=== PATIENT | male | born 1940 | race Caucasian/White ===

== ENCOUNTER 2024-04-15 20:40 | Inpatient (IN) ==
--- NOTE | 2024-04-15 21:19 | Emergency Department Note ---
Impression & Plan Acute hypotension, JM (acute kidney injury), Hematuria, Elevated troponin I level, Acute UTI (urinary tract infection) ED Provider Note NAME: ERNIE EGAN AGE: 84 SEX: M : 1940 ARRIVES VIA: Ambulance INFORMANT: Patient, EMS, the patient's significant other ED PROVIDER(S): Lance Hansen DO CHIEF COMPLAINT: Weakness HPI: The patient is an 84-year-old male who presented to the emergency department for an evaluation of generalized weakness. The patient had a history of urethral stricture and kidney stones. The patient had a stent placed as well as a dilation of urethral stricture. The patient was not doing well and was experiencing generalized weakness. He did not have a fever but is feeling there was concern that he was not at his normal baseline mental status. For this reason she called 911. The patient was found to be hypotensive. He was treated with a small fluid bolus prior to arrival. The patient himself offers no complaints. He denies having any nausea or vomiting. He denies having any back pain or chest pain. ROS: See above HPI for pertinent positives & negatives. A total of 10 systems reviewed and were otherwise negative. PAST MEDICAL HISTORY: See Below PAST SURGICAL HISTORY: See Below FAMILY HISTORY: See Below SOCIAL HISTORY: See Below HOME MEDICATIONS: See Below ALLERGIES: See Below VITALS: See Below PHYSICAL EXAMINATION: GENERAL: The patient is awake and alert. He appears somewhat listless. EYES: The conjunctivae are clear. The pupils are round and reactive. EARS, NOSE, MOUTH AND THROAT: The nose is without any evidence of any deformity. NECK: The neck is nontender and supple. RESPIRATORY: Normal respiratory effort is noted there is no evidence of wheezing rhonchi or rales CARDIOVASCULAR: Regular rate and rhythm was noted to auscultation. Systolic murmur was noted. GASTROINTESTINAL: Abdomen is distended. There is diffuse tenderness with suprapubic tenderness to palpation. MUSCULOSKELETAL/EXTREMITIES: There is no evidence of gross deformity full range of motion is noted in the hips and shoulders. SKIN: Trace pedal edema was noted bilaterally. NEUROLOGIC: Patient is awake and oriented to person and place. Strength is symmetric but diminished. MEDICAL DECISION MAKING: The is an 84-year-old male who presented to the emergency department with hypotension and generalized weakness. The patient recently had a procedure for a urethral stricture as well as a stent placement. The patient had a recent urologic procedure today. His significant other called 911 because he had decreased urine output and was very lethargic. The patient was treated with a Ponce catheter in the emergency department. He also had multiple boluses of IV fluids. He was also treated with IV antibiotics for presumed urinary tract infection. The patient had a CT ordered which showed no acute process but did show that the stent was in place. The patient's creatinine was found to be elevated compared to baseline. I discussed his condition with the patient's primary urologist. I also discussed his condition with the [facility] hospitalist. They have agreed to evaluate the patient in the emergency department. I discussed the patient's laboratory and radiographic studies with the patient's significant other. Triage Nursing notes reviewed. Prior medical records reviewed Vital Signs: reviewed and remarkable for hypotension Differential diagnosis: Testicular torsion, mass, infection, hernia, hydrocele, epididymitis, STI, trauma, intra-abdominal process, as well as other pathologies. ER treatment provided: See below Diagnostics interpreted by me: ECG: EKG was obtained in the emergency department. My interpretation is normal sinus rhythm at 91 bpm. Anterior Q waves were noted. Right bundle branch block pattern was noted. There is no ectopy. This was compared to a tracing from June 04, 2023. No specific changes were noted. Cardiac Monitoring: An order was placed for continuous cardiac monitoring. The monitor shows a rate of 95 bpm with sinus rhythm. Laboratory studies: As stated above and show below. Imaging studies: See below. Radiographic imaging was reviewed by myself Consultation(s): I did this case with Dr. Abdullahi who is the patient's primary urologist. I discussed this case with Dr. Jiang who is on-call for the [facility]ist group. ED COURSE: Procedures: none Critical Care: I have personally spent greater than 45 minutes of critical care time in the direct management of this patient. This includes bedside care, interpretation of diagnostic studies, and testing, discussion with consultants, patient, and family members, and other required patient management activities. This 45 minutes is in excess of all separately billable procedures. Past Med/Surg History Problem List (Updated 04/15/24 @ 22:41 by Lance Hansen DO) Acute UTI (urinary tract infection) (Acute) Elevated troponin I level (Acute) Hematuria (Acute) JM (acute kidney injury) (Acute) Acute hypotension (Acute) Encounter for preoperative assessment (Acute) Arthritis of right hip Nightmares Hallucinations Greater trochanteric pain syndrome Nephrolithiasis (Acute) Inflammatory polyarthritis CKD (chronic kidney disease) stage 3, GFR 30-59 ml/min Parkinson's disease Balanitis Dysphagia Incontinence Dementia in Parkinson's disease Constipation Urinary retention Incomplete bladder emptying Leg muscle spasm 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 follow with [facility] Anemia Medical History Arthritis Kidney stone Hallucination mild>seeing bugs (reason for nuplazid) Restless legs Pacemaker (2019) Dr. Foster cards>gets checked monthly remote (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 dx>pacemaker implanted for irregular hr GERD without esophagitis Insomnia Parkinson disease followed by Dr. Kemp Surgical History H/O repair of left rotator cuff History of prostate surgery History of cataract surgery rt/left History of cardiac cath "long time ago/no stents" History of lumbar surgery bone spur removal Status post evacuation of subdural hematoma 08/2018 @ [facility] [place] from fall History of hand surgery left hand--fingers ricardo d/t Parkinson's History of carpal tunnel release of both wrists History of total left hip replacement Hx of vasectomy History of bowel resection 2014--12 inches d/t diverticulitis @ [facility] [place] History of inguinal hernia repair History of colonoscopy with polypectomy History of esophagogastroduodenoscopy (EGD) History of tooth extraction Hx of fusion of cervical spine VERY limited ROM>more than 3 levels fused (11+ years ago) Family History Mother Myocardial infarction Colorectal cancer Other Heart problem No family history of adverse response to anesthesia Denies family history of Ovarian cancer Prostate cancer Breast cancer Lung cancer Social History Smoking Status: Former smoker Tobacco Type: Cigarettes Age Started Using Tobacco: 21; Age Quit Using Tobacco: 25; packs per day: 1; Cigarettes Per Day: 50+ YR AGO; Second Hand Exposure: No; Do You Dip or Chew Tobacco: No; Hx Alcohol Use: Yes Hx Substance Use: No Preferred Language: Pashto Communication Ability: Effective Visual Impairment: Limited Hearing Ability: Normal Commercial Lender Required: No Beliefs That Will Affect Care: None marital status: Current Living Situation: Spouse current occupational status: retired How many Children do You have: 5 Feels Safe at Home: Yes Childhood Exposure to Second-Hand Smoke: Yes Diet: regular caffeine: Yes Dental Care, Regularly: Yes Physical Activity Frequency: 3-4 Times per Week Physical Activity Frequency Comment: chair exercises Seatbelt Use: always Sunscreen Use: No (not in the sun) Do you think of yourself as: straight/heterosexual Assistive Devices: Denture - Upper, Glasses and Wheelchair Allergies Allergies Allergy/AdvReac Type Severity Reaction Status Date / Time Sulfa (Sulfonamide Allergy Mild itchy Verified 04/15/24 06:53 Antibiotics) alfuzosin [From Uroxatral] Allergy Unknown PT NOT SURE Verified 04/15/24 06:53 clindamycin Allergy Unknown PT NOT SURE Verified 04/15/24 06:53 aspirin AdvReac Mild upset Verified 04/15/24 06:53 stomach ciprofloxacin AdvReac Mild Joint Pain Verified 04/15/24 06:53 levofloxacin [From Levaquin] AdvReac Mild affected Verified 04/15/24 06:53 tendons in wrist Quinolones AdvReac Mild myalgia Verified 04/15/24 06:53 Home Meds Home Medications Medication Instructions Recorded Confirmed diclofenac sodium 1 % topical gel 2 g topical UD PRN Knee Pain 08/17/18 04/15/24 (Voltaren) finasteride 5 mg tablet 5 mg PO QAM 07/05/19 04/15/24 prednisone 5 mg tablet 5 mg PO QAM 08/22/19 04/15/24 cholecalciferol (vitamin D3) 25 1,000 units PO TID 09/19/19 04/15/24 mcg (1,000 unit) capsule (Vitamin D3) acetaminophen 500 mg tablet 1,000 mg PO UD PRN Pain 01/09/20 04/15/24 ascorbic acid (vitamin C) 500 mg 500 mg PO QAM 01/09/20 04/15/24 tablet celecoxib 200 mg capsule (Celebrex) 200 mg PO QAM 07/09/21 04/15/24 peg 400-propylene glycol 0.4 %-0.3 1 drp ophthalmic (eye) BID 07/09/21 04/15/24 % eye drops ferrous gluconate 324 mg (36 mg 324 mg PO QDL 12/27/21 04/15/24 iron) tablet sennosides 8.6 mg-docusate sodium 2 - 4 tab-cap PO DAILY PRN 12/27/21 04/15/24 50 mg tablet (Colace 2-In-1) constipation clotrimazole-betamethasone 1 1 applic topical .qhs PRN Pain 08/24/23 04/15/24 %-0.05 % topical cream famotidine 20 mg tablet 20 mg PO QAM 04/08/24 04/15/24 pimavanserin 10 mg tablet 10 mg PO QAM 04/08/24 04/15/24 (Nuplazid) vibegron 75 mg tablet (Gemtesa) 75 mg PO QPM 04/08/24 04/15/24 Previous Rx's Medication Instructions Recorded methenamine hippurate 1 gram tablet 1 gm PO HS #30 tabs 09/17/19 sodium chloride 1 gram tablet 1 g PO TID 90 days #270 tabs 10/23/20 Wheelchair (Powered) (Power #1 ea 08/16/22 Wheelchair) gabapentin 100 mg capsule 100 mg PO HS #30 caps 09/08/23 tramadol 50 mg tablet 50 mg PO Q6H PRN pain #30 tabs 11/15/23 pantoprazole 40 mg tablet,delayed 40 mg PO BID #180 tabs 12/18/23 release (Protonix) midodrine 10 mg tablet 5 mg (1/2 x 10 mg) PO TID 90 days 12/27/23 #135 tabs carbidopa 25 mg-levodopa 250 mg 1 tab PO QID #90 tabs 03/08/24 tablet carbidopa ER 50 mg-levodopa 200 mg 1 tab PO BID 14 days #28 tabs 03/18/24 tablet,extended release nitrofurantoin 100 mg PO Q12H 7 days #14 caps 04/05/24 monohydrate/macrocrystals 100 mg capsule (Macrobid) amoxicillin 500 mg-potassium 1 tab PO BID #14 tabs 04/15/24 clavulanate 125 mg tablet clotrimazole-betamethasone 1 1 applic topical TID PRN Swelling 04/15/24 %-0.05 % topical cream #45 grams ondansetron 8 mg disintegrating 8 mg PO Q8H PRN nausea and 04/15/24 tablet vomiting #30 tabs oxycodone-acetaminophen 7.5 mg-325 1 tab PO Q8H PRN pain #7 tabs 04/15/24 mg tablet (Percocet) phenazopyridine 200 mg tablet 200 mg PO Q8H PRN pain #10 tabs 04/15/24 (Pyridium) tamsulosin 0.4 mg capsule 0.4 mg PO DAILY #30 caps 04/15/24 Results & Data (ED) Vital Signs Vital Signs - 24 hr 04/15/24 20:48 04/15/24 21:02 04/15/24 22:34 Temperature 36.7 C Temperature Source Oral Pulse Rate 91 H 92 H Pulse Rate [Finger] 95 H Respiratory Rate 14 18 Blood Pressure 104/71 Blood Pressure [Right Arm] 98/72 L Blood Pressure Mean 82 Blood Pressure Mean [Right Arm] 80 Pulse Oximetry 94 94 Oxygen Delivery Method Room Air Room Air Sepsis Recent Fever Within 48 Hours No Sepsis New/Unexplained Change in Mental Status No Sepsis Action Taken by Nursing No Action Required Home Medications Current Medication List: was personally reviewed by me Laboratory Data Attestation: I reviewed the patient's lab results. 04/15/24 20:42 04/15/24 20:42 Lab Results 04/15/24 04/15/24 04/15/24 Range/Units 20:42 20:50 21:39 WBC 7.65 (4.8-10.8) K/ul RBC 4.39 L (4.70-6.10) M/uL Hgb 15.0 (14.0-18.0) g/dl Hct 43.7 (42.0-52.0) % MCV 99.5 (80.0-100.0) fL MCH 34.2 H (25.0-34.0) pg MCHC 34.3 (32.0-36.0) g/dL RDW Std Deviation 48.8 H (36.4-46.3) fL RDW Coeff of Capo 13.3 (11.5-14.5) % Plt Count 130 (130-400) K/uL MPV 10.5 (9.4-12.4) fL Immature Gran % (Auto) 0.7 % Neut % (Auto) 87.6 % Lymph % (Auto) 1.7 % [place] % (Auto) 8.1 % Eos % (Auto) 1.8 % Baso % (Auto) 0.1 % Neut # (Auto) 6.70 H (1.40-6.50) K/uL Lymph # (Auto) 0.13 L (1.20-3.40) K/uL [place] # (Auto) 0.62 H (0.11-0.59) K/uL Eos # (Auto) 0.14 (0.00-0.50) K/uL Baso # (Auto) 0.01 (0.00-0.20) K/uL Immature Gran # (Auto) 0.05 (0.01-0.20) K/uL PT 11.7 (9.0-12.0) Seconds INR 1.1 (0.9-1.1) APTT 27 (21-31) Seconds PTT Ratio 1.0 Sodium 137 (136-145) mmol/L Potassium 4.9 (3.5-5.1) mmol/L Chloride 107 (98-107) mmol/L Carbon Dioxide 19 L (21-32) mmol/L Anion Gap 11 (3-11) BUN 49 H (6-23) mg/dl Creatinine 2.54 H (0.6-1.4) mg/dl Est Cr Clr Drug Dosing 23.8 ml/min Est GFR ( Amer) 26.2 ml/min Est GFR (Non-Af Amer) 22.6 ml/min BUN/Creatinine Ratio 19.3 (10-20) Glucose 127 H (70-99(Fasting)) mg/dl Lactate 2.9 H* (0.4-2.0) mmol/L Calcium 8.6 (8.6-10.3) mg/dl Magnesium 1.4 L (1.7-2.4) mg/dl Total Bilirubin 0.8 (0.2-1.0) mg/dl Direct Bilirubin 0.2 (0-0.2) mg/dl AST 9 L (13-39) U/L ALT 5 L (7-52) U/L Alkaline Phosphatase 46 (34-104) U/L Troponin I High Sens 43.4 H (0-20) pg/ml Total Protein 6.9 (6.0-8.3) gm/dl Albumin 4.3 (3.4-5.0) gm/dl Procalcitonin 3.74 H (0-0.5) ng/ml Urine Color Dark Yellow Urine Appearance Turbid A (Clear) Urine pH 6.0 (4.5-7.5) Ur Specific [place] 1.020 (1.000-1.030) Urine Protein 3+ H (Negative) Urine Glucose (UA) Negative (Negative) Urine Ketones Negative (Negative) Urine Blood 3+ H (Negative) Urine Nitrite Positive A (Negative) Urine Bilirubin 1+ H (Negative) Urine Urobilinogen Negative (Negative) Ur Leukocyte Esterase 2+ H (Negative) Urine WBC (Auto) 21-50 H (0-5) /hpf Urine RBC (Auto) >20 H (0-2) /hpf U Hyaline Cast (Auto) 3-5 H (0-2) /lpf U Epithel Cells (Auto) 0-2 (0-2) /hpf Urine Bacteria (Auto) 1+ H (None Seen) Administered Medications Discontinued Medications Sodium Chloride (Nss) 1,000 mls @ 999 mls/hr IV .Q1H1M ONE Stop: 04/15/24 21:48 Last Admin: 04/15/24 21:53 Dose: 999 mls/hr Documented By: SHARAN Ceftriaxone Sodium (Rocephin) 2,000 mg in 50 mls @ 100 mls/hr IV NOW STA Stop: 04/15/24 22:23 Last Admin: 04/15/24 22:06 Dose: 100 mls/hr Documented By: SHARAN Imaging Data Attestation: I personally reviewed and interpreted this imaging study as follows: My Impression: 1 view chest x-ray was obtained in the emergency department. There was atelectasis noted at both bases, there is no free air, final report pending. CT of the abdomen and pelvis was obtained. My interpretation is no free air or signs of bowel obstruction, final report below. Radiologist's Impression: Abdomen/Pelvis CT 04/15/24 20:48 Exam(s): CT ABDOMEN + PELVIS Without Contrast EXAM: CT Abdomen and Pelvis Without Intravenous Contrast CLINICAL HISTORY: recent stent. TECHNIQUE: Axial computed tomography images of the abdomen and pelvis without intravenous contrast. CTDI is 25.66 mGy and DLP is 1200.83 mGy-cm. Automated exposure control was utilized for the study. A dose lowering technique was utilized adhering to the principles of ALARA. COMPARISON: No relevant prior studies available. FINDINGS: Lung bases: Unremarkable. No mass. No consolidation. ABDOMEN: Liver: Unremarkable. Gallbladder and bile ducts: Layering hyperdense material suggested involving the posterior aspect of the gallbladder. No calcified gallstones. No definite CT evidence for gallbladder wall thickening or biliary dilatation. Pancreas: Unremarkable. No ductal dilation. Spleen: Unremarkable. No splenomegaly. Adrenals: Unremarkable. No mass. Kidneys and ureters: A right sided double-J ureteral stent is noted in position with the superior loop noted in the renal pelvis and the inferior loop noted within the bladder. No right sided hydronephrosis noted. Stomach and bowel: The stomach is moderately distended with fluid and gas. No definite gastric mucosal thickening. Diffuse fluid-filled loops of nondilated small bowel are noted. Moderate stool burden. Evaluation of the bowel mucosa is somewhat limited without contrast and respiratory artifact. PELVIS: Appendix: No findings to suggest acute appendicitis. Bladder: A Ponce catheter is noted in the predominantly decompressed bladder. No stones. Reproductive: Unremarkable as visualized. ABDOMEN and PELVIS: Intraperitoneal space: Unremarkable. No free air. No significant fluid collection. Bones/joints: Mild scoliosis of the thoracolumbar spine. No acute osseous abnormality. Left total hip arthroplasty. No dislocation. Soft tissues: Left inguinal hernia with intraperitoneal fat extending into the superior aspect of the partially excluded scrotum. No fluid or fat stranding identified. Vasculature: Unremarkable. No abdominal aortic aneurysm. Lymph nodes: Unremarkable. No enlarged lymph nodes. IMPRESSION: 1. A right sided double-J ureteral stent is noted in position with the superior loop noted in the renal pelvis and the inferior loop noted within the bladder. No right sided hydronephrosis noted. 2. Filled loops of small bowel is presumed normal variation. Mild enteritis is also a consideration. No evidence for bowel obstruction. 3. Left inguinal hernia with intraperitoneal fat extending into the superior aspect of the partially excluded scrotum. No fluid or fat stranding identified. Electronically signed by: Leonard Perdue MD 04/15/24 22:32 PM Discharge Plan Visit Data Chief Complaint: Lethargic Stated Complaint: LETHARGIC, HYPOTENSIVE, UNABLE TO URINATE ED Provider: Lance Hansen Discharge Problem: Acute hypotension, JM (acute kidney injury), Hematuria, Elevated troponin I level, Acute UTI (urinary tract infection) Patient Disposition: Being Evaluated by Hospitalist Forms Stand Alone Forms: My [facility] Prescriptions Prescriptions: No Action methenamine hippurate 1 gram tablet 1 gm PO HS Qty: 30 3RF gabapentin 100 mg capsule 100 mg PO HS Qty: 30 8RF tramadol 50 mg tablet 50 mg PO Q6H PRN (Reason: pain) Qty: 30 1RF pantoprazole [Protonix] 40 mg tablet,delayed release (DR/EC) 40 mg PO BID Qty: 180 3RF carbidopa-levodopa 25-250 mg tablet 1 tab PO QID Qty: 90 5RF carbidopa-levodopa 50-200 mg tablet extended release 1 tab PO BID 14 Days Qty: 28 0RF nitrofurantoin monohyd/m-cryst [Macrobid] 100 mg capsule 100 mg PO Q12H 7 Days Qty: 14 0RF Patient Comments: new rx Rx Instructions: must administer with a meal/food ondansetron 8 mg tablet,disintegrating 8 mg PO Q8H PRN (Reason: nausea and vomiting) Qty: 30 0RF tamsulosin 0.4 mg capsule 0.4 mg PO DAILY Qty: 30 0RF finasteride 5 mg tablet 5 mg PO QAM clotrimazole-betamethasone 1-0.05 % cream 1 applic topical .qhs PRN (Reason: Pain) Rx Instructions: Apply small/pea-sized amount topically before bed prednisone 5 mg tablet 5 mg PO QAM sodium chloride 1 gram tablet 1 g PO TID 90 Days Qty: 270 0RF sennosides-docusate sodium [Colace 2-In-1] 8.6-50 mg tablet 2 - 4 tab-cap PO DAILY PRN (Reason: constipation) celecoxib [Celebrex] 200 mg capsule 200 mg PO QAM peg 400-propylene glycol 0.4-0.3 % drops 1 drp ophthalmic (eye) BID ferrous gluconate 324 mg (36 mg iron) tablet 324 mg PO QDL (DME) Power Wheelchair Device See Rx Instructions .Route Qty: 1 0RF Rx Instructions: As directed midodrine 10 mg tablet 5 mg PO TID 90 Days Qty: 135 3RF Rx Instructions: do not give last dose of day after 6PM or within 4 hrs of bedtime diclofenac sodium [Voltaren] 1 % Gel 2 g TOPICAL UD PRN (Reason: Knee Pain) cholecalciferol (vitamin D3) [Vitamin D3] 25 mcg (1,000 unit) capsule 1,000 units PO TID acetaminophen 500 mg Tablet 1,000 mg PO UD PRN (Reason: Pain) ascorbic acid (vitamin C) 500 mg Tablet 500 mg PO QAM famotidine 20 mg tablet 20 mg PO QAM Nuplazid 10 mg tablet 10 mg PO QAM Gemtesa 75 mg tablet 75 mg PO QPM phenazopyridine [Pyridium] 200 mg tablet 200 mg PO Q8H PRN (Reason: pain) Qty: 10 0RF oxycodone-acetaminophen [Percocet] 7.5-325 mg tablet 1 tab PO Q8H PRN (Reason: pain) Qty: 7 0RF amoxicillin-pot clavulanate 500-125 mg tablet 1 tab PO BID Qty: 14 0RF clotrimazole-betamethasone 1-0.05 % cream 1 applic topical TID PRN (Reason: Swelling) Qty: 45 11RF Rx Instructions: Apply 2-3 x per day for swelling or irritation. Referrals Referrals: Mehrdad Avalos DO [Primary Care Provider] - Discharge Problem: Hematuria Qualifiers: Hematuria type: gross Qualified Code(s): R31.0 - Gross hematuria
[2024-04-15 21:28] LABS: Albumin Level 4.3 gm/dl (3.4-5.0); BUN Creatinine Ratio 19.3 (10-20); Bilirubin Direct 0.2 mg/dl (0-0.2); Bilirubin,Total 0.8 mg/dl (0.2-1.0); Calcium 8.6 mg/dl (8.6-10.3); Creatinine Clr Calc Pharmacy 23.8 ml/min; Est GFR (African American) 26.2 ml/min; Est GFR (Non-African American) 22.6 ml/min; Magnesium 1.4 mg/dl (1.7-2.4); Potassium 4.9 mmol/L (3.5-5.1); Total Protein 6.9 gm/dl (6.0-8.3)
[2024-04-15 21:33] LABS: Basophils # (auto) 0.01 K/uL (0.00-0.20); Basophils % (auto) 0.1 %; Eosinophils # (auto) 0.14 K/uL (0.00-0.50); Eosinophils % (auto) 1.8 %; Hematocrit (blood only) 43.7 % (42.0-52.0); Immature Granulocytes # (auto) 0.05 K/uL (0.01-0.20); Immature Granulocytes % (auto) 0.7 %; Lymphocytes # (auto) 0.13 K/uL (1.20-3.40); Lymphocytes % (auto) 1.7 %; Mean Corpuscular Hemoglobin 34.2 pg (25.0-34.0); Mean Corpuscular Hgb Conc 34.3 g/dL (32.0-36.0); Mean Corpuscular Volume 99.5 fL (80.0-100.0); Mean Platelet Volume 10.5 fL (9.4-12.4); Monocytes # (auto) 0.62 K/uL (0.11-0.59); Monocytes % (auto) 8.1 %; Neutrophils % (auto) 87.6 %; Platelet Count 130 K/uL (130-400); RDW Coefficient of Variation 13.3 % (11.5-14.5); RDW Standard Deviation 48.8 fL (36.4-46.3); Red Blood Count 4.39 M/uL (4.70-6.10); White Blood Count 7.65 K/ul (4.8-10.8)
[2024-04-15 21:34] LABS: Troponin I High Sensitivity 43.4 pg/ml (0-20)
[2024-04-15 21:39] LABS: INR 1.1 (0.9-1.1); Partial Thromboplastin Time 27 Seconds (21-31); Prothrombin Time 11.7 Seconds (9.0-12.0)
[2024-04-15] MEDS: SODIUM CHLORIDE 0.9% 1,000 ML IV ONE (21:53)
[2024-04-15] MEDS: cefTRIAXone SODIUM 2,000 MG/50 ML BAG IV STA (22:06)
[2024-04-15 22:13] LABS: Appearance Urine Turbid (Clear); Bilirubin Urine 1+ (Negative); Blood Urine 3+ (Negative); Color Urine Dark Yellow; Epithelial Cell Urine Auto 0-2 /hpf (0-2); Glucose Urine UA Negative (Negative); Ketones Urine Negative (Negative); Leukocyte Esterase Urine 2+ (Negative); Nitrite Urine Positive (Negative); Protein Urine 3+ (Negative); RBC Urine Automated >20 /hpf (0-2); Urobilinogen Urine Negative (Negative); WBC Urine Automated 21-50 /hpf (0-5)
[2024-04-15 22:22] LABS: Bacteria Urine Automated 1+ (None Seen)
--- NOTE | 2024-04-15 22:33 | CT Scan Report ---
Exam(s): CT ABDOMEN + PELVIS Without Contrast EXAM: CT Abdomen and Pelvis Without Intravenous Contrast CLINICAL HISTORY: recent stent. TECHNIQUE: Axial computed tomography images of the abdomen and pelvis without intravenous contrast. CTDI is 25.66 mGy and DLP is 1200.83 mGy-cm. Automated exposure control was utilized for the study. A dose lowering technique was utilized adhering to the principles of ALARA. COMPARISON: No relevant prior studies available. FINDINGS: Lung bases: Unremarkable. No mass. No consolidation. ABDOMEN: Liver: Unremarkable. Gallbladder and bile ducts: Layering hyperdense material suggested involving the posterior aspect of the gallbladder. No calcified gallstones. No definite CT evidence for gallbladder wall thickening or biliary dilatation. Pancreas: Unremarkable. No ductal dilation. Spleen: Unremarkable. No splenomegaly. Adrenals: Unremarkable. No mass. Kidneys and ureters: A right sided double-J ureteral stent is noted in position with the superior loop noted in the renal pelvis and the inferior loop noted within the bladder. No right sided hydronephrosis noted. Stomach and bowel: The stomach is moderately distended with fluid and gas. No definite gastric mucosal thickening. Diffuse fluid-filled loops of nondilated small bowel are noted. Moderate stool burden. Evaluation of the bowel mucosa is somewhat limited without contrast and respiratory artifact. PELVIS: Appendix: No findings to suggest acute appendicitis. Bladder: A Ponce catheter is noted in the predominantly decompressed bladder. No stones. Reproductive: Unremarkable as visualized. ABDOMEN and PELVIS: Intraperitoneal space: Unremarkable. No free air. No significant fluid collection. Bones/joints: Mild scoliosis of the thoracolumbar spine. No acute osseous abnormality. Left total hip arthroplasty. No dislocation. Soft tissues: Left inguinal hernia with intraperitoneal fat extending into the superior aspect of the partially excluded scrotum. No fluid or fat stranding identified. Vasculature: Unremarkable. No abdominal aortic aneurysm. Lymph nodes: Unremarkable. No enlarged lymph nodes. IMPRESSION: 1. A right sided double-J ureteral stent is noted in position with the superior loop noted in the renal pelvis and the inferior loop noted within the bladder. No right sided hydronephrosis noted. 2. Filled loops of small bowel is presumed normal variation. Mild enteritis is also a consideration. No evidence for bowel obstruction. 3. Left inguinal hernia with intraperitoneal fat extending into the superior aspect of the partially excluded scrotum. No fluid or fat stranding identified. Electronically signed by: Leonard Perdue MD 04/15/24 22:32 PM
--- NOTE | 2024-04-15 22:49 | History & Physical Report ---
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: (11) Dementia in Parkinson's disease: (12) Pacemaker: (13) Inflammatory polyarthritis: Plan Sepsis with hypotension/UTI/acute urinary retention/placement of Ponce catheter in ED/gross hematuria/status post right ureteral stent placement on 04-15-2020 4 AM- Follow urine culture and sensitivity Stop nitrofurantoin Ceftriaxone 2 g IV daily Lowest blood pressure recorded 74/62 Patient received a total of 3 L normal saline bolus in ED, with improvement in systolic blood pressure to mid 90s Maintenance fluids: NSS at 100 mL/h x 1 L Continue tamsulosin, and Gemtesa Continue midodrine Patient will likely need additional fluid boluses. With possible need for pressors and transfer to ICU later on if necessary Consult urology Acute kidney injury superimposed on CKD/hypomagnesemia- Creatinine 2.54, with base range 1.34-1.4 8 repeat laboratories in a.m. Give magnesium sulfate 2 g IV, and recheck laboratories in a.m. Inflammatory polyarthritis- Hold oral prednisone Give hydrocortisone 100 mg IV now, then 50 mg IV every 8 hours Parkinson's disease- Continue extended release and regular release carbidopa-levodopa Continue Nuplazid History of Present Illness Chief Complaint: The patient presents to the emergency department with complaint of decreased ability to urinate after right-sided ureteral stent placement earlier in the day on 04/15, and presents to the emergency department, as recommended by urology, if he was unable to urinate by early this evening. Primary Care Provider: Mehrdad Avalos DO The patient is a 84-year-old male with past medical history including greater trochanteric pain syndrome, inflammatory polyarthritis, CKD stage III, Parkinson's disease with dementia, balanitis, history of urinary retention and incomplete bladder emptying, 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 On 04/15/2024 at 8:05 AM, he underwent a cystoscopy with urethral dilation, right flexible ureteroscopy, retrograde pyelogram, laser lithotripsy, ureteral dilation, basket extraction of stone and insertion of right ureteral stent catheter. He arrived to the urology office at 16:55 this afternoon, and reported not being able to void since the procedure earlier in the morning, and felt nauseous, having vomited twice while in the office. His PVR was 222. He was given prescriptions for Flomax and Zofran, told to drink lots of liquids, and if unable to urinate by 8 PM, he was to go to the ER for evaluation. In the emergency department, patient had a Ponce catheter placed, which returned gross hematuria, and was referred for evaluation for admission to the hospitalist service. Allergies Allergy/AdvReac Type Severity Reaction Status Date / Time Sulfa (Sulfonamide Allergy Mild itchy Verified 04/15/24 06:53 Antibiotics) alfuzosin [From Uroxatral] Allergy Unknown PT NOT SURE Verified 04/15/24 06:53 clindamycin Allergy Unknown PT NOT SURE Verified 04/15/24 06:53 aspirin AdvReac Mild upset Verified 04/15/24 06:53 stomach ciprofloxacin AdvReac Mild Joint Pain Verified 04/15/24 06:53 levofloxacin [From Levaquin] AdvReac Mild affected Verified 04/15/24 06:53 tendons in wrist Quinolones AdvReac Mild myalgia Verified 04/15/24 06:53 Home Medications Medication Instructions Recorded Confirmed Type diclofenac sodium 1 % topical gel 2 g topical UD PRN Knee Pain 08/17/18 04/15/24 History (Voltaren) finasteride 5 mg tablet 5 mg PO QAM 07/05/19 04/15/24 History prednisone 5 mg tablet 5 mg PO QAM 08/22/19 04/15/24 History methenamine hippurate 1 gram tablet 1 gm PO HS #30 tabs 09/17/19 04/15/24 Rx cholecalciferol (vitamin D3) 25 1,000 units PO TID 09/19/19 04/15/24 History mcg (1,000 unit) capsule (Vitamin D3) acetaminophen 500 mg tablet 1,000 mg PO UD PRN Pain 01/09/20 04/15/24 History ascorbic acid (vitamin C) 500 mg 500 mg PO QAM 01/09/20 04/15/24 History tablet sodium chloride 1 gram tablet 1 g PO TID 90 days #270 tabs 10/23/20 04/15/24 Rx celecoxib 200 mg capsule (Celebrex) 200 mg PO QAM 07/09/21 04/15/24 History peg 400-propylene glycol 0.4 %-0.3 1 drp ophthalmic (eye) BID 07/09/21 04/15/24 History % eye drops ferrous gluconate 324 mg (36 mg 324 mg PO QDL 12/27/21 04/15/24 History iron) tablet sennosides 8.6 mg-docusate sodium 2 - 4 tab-cap PO DAILY PRN 12/27/21 04/15/24 History 50 mg tablet (Colace 2-In-1) constipation Wheelchair (Powered) (Power #1 ea 08/16/22 04/10/24 Rx Wheelchair) clotrimazole-betamethasone 1 1 applic topical .qhs PRN Pain 08/24/23 04/15/24 History %-0.05 % topical cream gabapentin 100 mg capsule 100 mg PO HS #30 caps 09/08/23 04/15/24 Rx tramadol 50 mg tablet 50 mg PO Q6H PRN pain #30 tabs 11/15/23 04/15/24 Rx pantoprazole 40 mg tablet,delayed 40 mg PO BID #180 tabs 12/18/23 04/15/24 Rx release (Protonix) midodrine 10 mg tablet 5 mg (1/2 x 10 mg) PO TID 90 days 12/27/23 04/15/24 Rx #135 tabs carbidopa 25 mg-levodopa 250 mg 1 tab PO QID #90 tabs 03/08/24 04/15/24 Rx tablet carbidopa ER 50 mg-levodopa 200 mg 1 tab PO BID 14 days #28 tabs 03/18/24 04/15/24 Rx tablet,extended release nitrofurantoin 100 mg PO Q12H 7 days #14 caps 04/05/24 04/15/24 Rx monohydrate/macrocrystals 100 mg capsule (Macrobid) famotidine 20 mg tablet 20 mg PO QAM 04/08/24 04/15/24 History pimavanserin 10 mg tablet 10 mg PO QAM 04/08/24 04/15/24 History (Nuplazid) vibegron 75 mg tablet (Gemtesa) 75 mg PO QPM 04/08/24 04/15/24 History amoxicillin 500 mg-potassium 1 tab PO BID #14 tabs 04/15/24 04/15/24 Rx clavulanate 125 mg tablet clotrimazole-betamethasone 1 1 applic topical TID PRN Swelling 04/15/24 04/15/24 Rx %-0.05 % topical cream #45 grams ondansetron 8 mg disintegrating 8 mg PO Q8H PRN nausea and 04/15/24 04/15/24 Rx tablet vomiting #30 tabs oxycodone-acetaminophen 7.5 mg-325 1 tab PO Q8H PRN pain #7 tabs 04/15/24 04/15/24 Rx mg tablet (Percocet) phenazopyridine 200 mg tablet 200 mg PO Q8H PRN pain #10 tabs 04/15/24 04/15/24 Rx (Pyridium) tamsulosin 0.4 mg capsule 0.4 mg PO DAILY #30 caps 04/15/24 04/15/24 Rx Past Med/Surg History Problem List (Updated 04/16/24 @ 04:17 by Nima Garcia MD) Sepsis associated hypotension Ponce catheter in place on admission Acute kidney injury superimposed on CKD Acute UTI (urinary tract infection) (Acute) Elevated troponin I level (Acute) Hematuria (Acute) JM (acute kidney injury) (Acute) Acute hypotension (Acute) Encounter for preoperative assessment (Acute) Arthritis of right hip Nightmares Hallucinations Greater trochanteric pain syndrome Nephrolithiasis (Acute) Inflammatory polyarthritis CKD (chronic kidney disease) stage 3, GFR 30-59 ml/min Parkinson's disease Balanitis Dysphagia Incontinence Dementia in Parkinson's disease Constipation Urinary retention Incomplete bladder emptying Leg muscle spasm 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 follow with [facility] Anemia Medical History Arthritis Kidney stone Hallucination mild>seeing bugs (reason for nuplazid) Restless legs Pacemaker (2019) Dr. Foster cards>gets checked monthly remote (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 dx>pacemaker implanted for irregular hr GERD without esophagitis Insomnia Parkinson disease followed by Dr. Kemp Surgical History H/O repair of left rotator cuff History of prostate surgery History of cataract surgery rt/left History of cardiac cath "long time ago/no stents" History of lumbar surgery bone spur removal Status post evacuation of subdural hematoma 08/2018 @ [facility] [place] from fall History of hand surgery left hand--fingers ricardo d/t Parkinson's History of carpal tunnel release of both wrists History of total left hip replacement Hx of vasectomy History of bowel resection 2014--12 inches d/t diverticulitis @ [facility] [place] History of inguinal hernia repair History of colonoscopy with polypectomy History of esophagogastroduodenoscopy (EGD) History of tooth extraction Hx of fusion of cervical spine VERY limited ROM>more than 3 levels fused (11+ years ago) Family History Mother Myocardial infarction Colorectal cancer Other Heart problem No family history of adverse response to anesthesia Denies family history of Ovarian cancer Prostate cancer Breast cancer Lung cancer Social History Smoking Status: Former smoker Tobacco Type: Cigarettes Age Started Using Tobacco: 21; Age Quit Using Tobacco: 25; packs per day: 1; Cigarettes Per Day: 50+ YR AGO; Second Hand Exposure: No; Do You Dip or Chew Tobacco: No; Hx Alcohol Use: Yes Hx Substance Use: No Preferred Language: Macedonian Communication Ability: Effective Visual Impairment: Limited Hearing Ability: Normal Senior Interactive Producer Required: No Beliefs That Will Affect Care: None marital status: Current Living Situation: Spouse current occupational status: retired How many Children do You have: 5 Feels Safe at Home: Yes Childhood Exposure to Second-Hand Smoke: Yes Diet: regular caffeine: Yes Dental Care, Regularly: Yes Physical Activity Frequency: 3-4 Times per Week Physical Activity Frequency Comment: chair exercises Seatbelt Use: always Sunscreen Use: No (not in the sun) Do you think of yourself as: straight/heterosexual Assistive Devices: Denture - Upper, Glasses and Wheelchair Review of Systems Review of Systems: The patient denies chest pain, palpitations, shortness of breath, dyspnea on exertion, cough, lower extremity swelling, sore throat, fevers, chills, sweats, diarrhea , constipation, blood in urine or stool, dysuria, lightheadedness, dizziness, headache, memory loss, loss of consciousness, rash, focal weakness, numbness or tingling in arms or legs, generalized arthralgias or myalgias, neck pain, or night sweats. The review of systems is otherwise negative other than for that already noted above, and at least 10 systems have been reviewed. Physical Exam Physical Exam: The patient is awake, alert and oriented 3, well developed and well nourished, normocephalic and atraumatic, lying in bed and in mild distress due to pain HEENT--PERRL, EOMI, mucous membranes and oropharynx dry. Neck--supple. No JVD. No bruits. Thyroid normal, trachea midline, no adenopathy. Heart--normal S1 and S2. No murmurs, rubs or gallops. Lungs--clear bilaterally, no respiratory distress, no accessory muscle use. Abdomen/pelvis--normal bowel sounds and soft. Suprapubic and right flank pain. Nondistended, no hernias or masses, no organomegaly. Extremities-- No edema. Dermatologic--normal skin turgor, normal color, no abnormal lymph nodes, no rash. Neurologic--cranial nerves II through XII grossly intact. Rheumatologic--normal range of motion. Psychiatric--normal affect. Results & Data Results & Data Vital Signs (Past 12 Hours) Vital Signs Temp Pulse Pulse Resp BP BP Pulse Ox 04/15/24 22:34 95 H 18 98/72 L 94 04/15/24 21:02 36.7 C 92 H 14 104/71 94 04/15/24 20:48 91 H O2 Del Method 04/15/24 22:34 Room Air 04/15/24 21:02 Room Air 04/15/24 20:48 Laboratory Results Laboratory Results WBC 7.65 K/ul (4.8-10.8) 04/15/24 20:42 RBC 4.39 M/uL (4.70-6.10) L 04/15/24 20:42 Hgb 15.0 g/dl (14.0-18.0) 04/15/24 20:42 Hct 43.7 % (42.0-52.0) 04/15/24 20:42 MCV 99.5 fL (80.0-100.0) 04/15/24 20:42 MCH 34.2 pg (25.0-34.0) H 04/15/24 20:42 MCHC 34.3 g/dL (32.0-36.0) 04/15/24 20:42 RDW Std Deviation 48.8 fL (36.4-46.3) H 04/15/24 20:42 RDW Coeff of Capo 13.3 % (11.5-14.5) 04/15/24 20:42 Plt Count 130 K/uL (130-400) 04/15/24 20:42 MPV 10.5 fL (9.4-12.4) 04/15/24 20:42 Immature Gran % (Auto) 0.7 % 04/15/24 20:42 Neut % (Auto) 87.6 % 04/15/24 20:42 Lymph % (Auto) 1.7 % 04/15/24 20:42 Russell % (Auto) 8.1 % 04/15/24 20:42 Eos % (Auto) 1.8 % 04/15/24 20:42 Baso % (Auto) 0.1 % 04/15/24 20:42 Neut # (Auto) 6.70 K/uL (1.40-6.50) H 04/15/24 20:42 Lymph # (Auto) 0.13 K/uL (1.20-3.40) L 04/15/24 20:42 Russell # (Auto) 0.62 K/uL (0.11-0.59) H 04/15/24 20:42 Eos # (Auto) 0.14 K/uL (0.00-0.50) 04/15/24 20:42 Baso # (Auto) 0.01 K/uL (0.00-0.20) 04/15/24 20:42 Immature Gran # (Auto) 0.05 K/uL (0.01-0.20) 04/15/24 20:42 PT 11.7 Seconds (9.0-12.0) 04/15/24 20:42 INR 1.1 (0.9-1.1) 04/15/24 20:42 APTT 27 Seconds (21-31) 04/15/24 20:42 PTT Ratio 1.0 04/15/24 20:42 Sodium 137 mmol/L (136-145) 04/15/24 20:42 Potassium 4.9 mmol/L (3.5-5.1) 04/15/24 20:42 Chloride 107 mmol/L (98-107) 04/15/24 20:42 Carbon Dioxide 19 mmol/L (21-32) L 04/15/24 20:42 Anion Gap 11 (3-11) 04/15/24 20:42 BUN 49 mg/dl (6-23) H 04/15/24 20:42 Creatinine 2.54 mg/dl (0.6-1.4) H 04/15/24 20:42 Est Cr Clr Drug Dosing 23.8 ml/min 04/15/24 20:42 Est GFR ( Amer) 26.2 ml/min 04/15/24 20:42 Est GFR (Non-Af Amer) 22.6 ml/min 04/15/24 20:42 BUN/Creatinine Ratio 19.3 (10-20) 04/15/24 20:42 Glucose 127 mg/dl (70-99(Fasting)) H 04/15/24 20:42 Lactate 2.3 mmol/L (0.4-2.0) H* 04/15/24 22:29 Calcium 8.6 mg/dl (8.6-10.3) 04/15/24 20:42 Magnesium 1.4 mg/dl (1.7-2.4) L 04/15/24 20:42 Total Bilirubin 0.8 mg/dl (0.2-1.0) 04/15/24 20:42 Direct Bilirubin 0.2 mg/dl (0-0.2) 04/15/24 20:42 AST 9 U/L (13-39) L 04/15/24 20:42 ALT 5 U/L (7-52) L 04/15/24 20:42 Alkaline Phosphatase 46 U/L (34-104) 04/15/24 20:42 Troponin I High Sens 47.8 pg/ml (0-20) H 04/15/24 22:30 Total Protein 6.9 gm/dl (6.0-8.3) 04/15/24 20:42 Albumin 4.3 gm/dl (3.4-5.0) 04/15/24 20:42 Procalcitonin 3.74 ng/ml (0-0.5) H 04/15/24 20:42 Urine Color Dark Yellow 04/15/24 21:39 Urine Appearance Turbid (Clear) A 04/15/24 21:39 Urine pH 6.0 (4.5-7.5) 04/15/24 21:39 Ur Specific [place] 1.020 (1.000-1.030) 04/15/24 21:39 Urine Protein 3+ (Negative) H 04/15/24 21:39 Urine Glucose (UA) Negative (Negative) 04/15/24 21:39 Urine Ketones Negative (Negative) 04/15/24 21:39 Urine Blood 3+ (Negative) H 04/15/24 21:39 Urine Nitrite Positive (Negative) A 04/15/24 21:39 Urine Bilirubin 1+ (Negative) H 04/15/24 21:39 Urine Urobilinogen Negative (Negative) 04/15/24 21:39 Ur Leukocyte Esterase 2+ (Negative) H 04/15/24 21:39 Urine WBC (Auto) 21-50 /hpf (0-5) H 04/15/24 21:39 Urine RBC (Auto) >20 /hpf (0-2) H 04/15/24 21:39 U Hyaline Cast (Auto) 3-5 /lpf (0-2) H 04/15/24 21:39 U Epithel Cells (Auto) 0-2 /hpf (0-2) 04/15/24 21:39 Urine Bacteria (Auto) 1+ (None Seen) H 04/15/24 21:39 Impressions Abdomen/Pelvis CT 04/15/24 20:48 Exam(s): CT ABDOMEN + PELVIS Without Contrast EXAM: CT Abdomen and Pelvis Without Intravenous Contrast CLINICAL HISTORY: recent stent. TECHNIQUE: Axial computed tomography images of the abdomen and pelvis without intravenous contrast. CTDI is 25.66 mGy and DLP is 1200.83 mGy-cm. Automated exposure control was utilized for the study. A dose lowering technique was utilized adhering to the principles of ALARA. COMPARISON: No relevant prior studies available. FINDINGS: Lung bases: Unremarkable. No mass. No consolidation. ABDOMEN: Liver: Unremarkable. Gallbladder and bile ducts: Layering hyperdense material suggested involving the posterior aspect of the gallbladder. No calcified gallstones. No definite CT evidence for gallbladder wall thickening or biliary dilatation. Pancreas: Unremarkable. No ductal dilation. Spleen: Unremarkable. No splenomegaly. Adrenals: Unremarkable. No mass. Kidneys and ureters: A right sided double-J ureteral stent is noted in position with the superior loop noted in the renal pelvis and the inferior loop noted within the bladder. No right sided hydronephrosis noted. Stomach and bowel: The stomach is moderately distended with fluid and gas. No definite gastric mucosal thickening. Diffuse fluid-filled loops of nondilated small bowel are noted. Moderate stool burden. Evaluation of the bowel mucosa is somewhat limited without contrast and respiratory artifact. PELVIS: Appendix: No findings to suggest acute appendicitis. Bladder: A Ponce catheter is noted in the predominantly decompressed bladder. No stones. Reproductive: Unremarkable as visualized. ABDOMEN and PELVIS: Intraperitoneal space: Unremarkable. No free air. No significant fluid collection. Bones/joints: Mild scoliosis of the thoracolumbar spine. No acute osseous abnormality. Left total hip arthroplasty. No dislocation. Soft tissues: Left inguinal hernia with intraperitoneal fat extending into the superior aspect of the partially excluded scrotum. No fluid or fat stranding identified. Vasculature: Unremarkable. No abdominal aortic aneurysm. Lymph nodes: Unremarkable. No enlarged lymph nodes. IMPRESSION: 1. A right sided double-J ureteral stent is noted in position with the superior loop noted in the renal pelvis and the inferior loop noted within the bladder. No right sided hydronephrosis noted. 2. Filled loops of small bowel is presumed normal variation. Mild enteritis is also a consideration. No evidence for bowel obstruction. 3. Left inguinal hernia with intraperitoneal fat extending into the superior aspect of the partially excluded scrotum. No fluid or fat stranding identified. Electronically signed by: Leonard Perdue MD 04/15/24 22:32 PM Code Status & VTE Plan Code Status full code VTE Prophylaxis Plan VTE Prophylaxis will be ordered: Yes PG Care Time/CCT Total # of Minutes Spent Total Time Spent with Patient: Total time spent is greater than 50% in coordination of care (as documented) at patient's floor/unit and/or counseling patient: Coding Level of Care Code 95143 INT INP/OBS CARE 3/75MIN Diagnoses Acute UTI (urinary tract infection) N39.0 Sepsis associated hypotension A41.9; I95.9 Incomplete bladder emptying R33.[address] on admission Z97.8 Acute hypotension I95.9 Hematuria R31.0 Hematuria type: gross Elevated troponin I level R79.89 Acute kidney injury superimposed on CKD N17.9; N18.9 CKD (chronic kidney disease) stage 3, GFR 30-59 ml/min N18.30 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
[2024-04-15] MEDS: CARBIDOPA/LEVODOPA 25-250 1 EA TAB PO STA (23:51)
[2024-04-15] MEDS: VIBEGRON 75 MG TAB PO STA (23:51)
[2024-04-15] MEDS: PANTOprazole 40 MG in SYRINGE 0 ML IV ONE (23:51)
[2024-04-15] MEDS: CARBIDOPA/LEVODOPA 50/200MG EXT REL TAB PO STA (23:51)
[2024-04-15] MEDS: MIDODRINE HCL 2.5 MG TAB PO STA (23:51)
[2024-04-15] MEDS: GABAPENTIN 100 MG CAP PO STA (23:51)
[2024-04-16] MEDS ORDERED: HYDROCORTISONE SOD SUCCINATE 100 MG/2 ML VIAL IV STA (00:21)
[2024-04-16] MEDS: MAGNESIUM SULFATE / D5W 1 GM/100 ML BAG IV SCH (00:33)
[2024-04-16] MEDS: SODIUM CHLORIDE 0.9% 1,000 ML IV ONE ×2 (00:36→03:43)
[2024-04-16] MEDS: SODIUM CHLORIDE 0.9% 1,000 ML IV SCH (01:35)
[2024-04-16] MEDS: ACETAMINOPHEN 325 MG TAB PO PRN (02:25)
[2024-04-16] MEDS: HYDROCORTISONE SOD 100 MG in SYRINGE 0 ML IV STA (03:44)
--- NOTE | 2024-04-16 04:25 | Billing Data ---
Date of Service April 16, 2024 Coding Level of Care Code 61627 INT INP/OBS CARE
[2024-04-16] MEDS: TAMSULOSIN HCL 0.4 MG CAP PO ONE (04:34)
[2024-04-16] MEDS: MIDODRINE HCL 2.5 MG TAB PO ONE (05:14)
[2024-04-16 06:44] LABS: Basophils # (auto) 0.01 K/uL (0.00-0.20); Basophils % (auto) 0.2 %; Eosinophils # (auto) 0.15 K/uL (0.00-0.50); Eosinophils % (auto) 2.4 %; Hematocrit (blood only) 35.4 % (42.0-52.0); Hemoglobin 12.1 g/dl (14.0-18.0); Immature Granulocytes # (auto) 0.01 K/uL (0.01-0.20); Immature Granulocytes % (auto) 0.2 %; Lymphocytes # (auto) 0.32 K/uL (1.20-3.40); Lymphocytes % (auto) 5.1 %; Mean Corpuscular Hemoglobin 33.6 pg (25.0-34.0); Mean Corpuscular Hgb Conc 34.2 g/dL (32.0-36.0); Mean Corpuscular Volume 98.3 fL (80.0-100.0); Mean Platelet Volume 10.3 fL (9.4-12.4); Monocytes # (auto) 0.42 K/uL (0.11-0.59); Monocytes % (auto) 6.7 %; Neutrophils % (auto) 85.4 %; Platelet Count 111 K/uL (130-400); RDW Coefficient of Variation 13.4 % (11.5-14.5); RDW Standard Deviation 48.6 fL (36.4-46.3); White Blood Count 6.31 K/ul (4.8-10.8)
[2024-04-16 06:52] LABS: Albumin Level 3.4 gm/dl (3.4-5.0); BUN Creatinine Ratio 23.2 (10-20); Calcium 6.9 mg/dl (8.6-10.3); Creatinine Clr Calc Pharmacy 31.9 ml/min; Est GFR (African American) 37.2 ml/min; Est GFR (Non-African American) 32.1 ml/min; Magnesium 1.8 mg/dl (1.7-2.4); Phosphorus 1.7 mg/dl (2.5-4.9); Potassium 4.4 mmol/L (3.5-5.1)
[2024-04-16] MEDS: MIDODRINE HCL 2.5 MG TAB PO SCH (07:22)
--- NOTE | 2024-04-16 08:27 | XRay Report ---
XR chest 1V portable HISTORY: Sepsis COMPARISON: Chest 06/04/2023. FINDINGS: There are low lung volumes. No pneumothorax. No pleural effusions. The cardiac silhouette r emains enlarged. There is left-sided dual-chamber pacemaker and cervical spinal fusion hardware. Ther e is mild central pulmonary vascular congestion without overt edema. No new focal lung consolidations to suggest a pneumonia. IMPRESSION: Cardiomegaly with mild congestive change. ACT 112: Negative or not required by law. Electronically signed by: Jean-Paul Fall M.D. 04/16/2024 8:25 AM
[2024-04-16] MEDS: CARBIDOPA/LEVODOPA 50/200MG EXT REL TAB PO SCH (10:04)
[2024-04-16] MEDS: PANTOprazole 40 MG in SYRINGE 0 ML IV SCH (10:04)
[2024-04-16] MEDS: CARBIDOPA/LEVODOPA 25-250 1 EA TAB PO SCH (10:04)
--- NOTE | 2024-04-16 10:38 | Electrocardiogram Report ---
Test Reason : Blood Pressure : */* mmHG Vent. Rate : 91 BPM Atrial Rate : 91 BPM P-R Int : 166 ms QRS Dur : 116 ms QT Int : 374 ms P-R-T Axes : 80 -70 18 degrees QTcB Int : 460 ms Normal sinus rhythm Incomplete right bundle branch block Left anterior fascicular block Septal infarct (cited on or before 15-Sep-2022) Abnormal ECG When compared with ECG of 04-Jun-2023 00:31, Nonspecific T wave abnormality now evident in Inferior leads T wave amplitude has decreased in Anterior leads Confirmed by Lance Branch ([id number]) on 04/16/2024 10:37:37 AM Referred By: Arnaldo Abdullahi Confirmed By: Lance Branch
[2024-04-16] MEDS: CALCIUM GLUCONATE 1,000 MG/60 ML BAG IV STA (10:55)
--- NOTE | 2024-04-16 11:03 | Hospitalist Progress Note ---
Date of Service April 16, 2024 Assessment & Plan (1) Complicated UTI (urinary tract infection): Plan: UTI in setting of urological surgery yesterday am, 04/15 (cystoscopy, laser lithotripsy, right ureteral stent placement) blood/urine cx's pending is on chronic prednisone 5mg daily for inflammatory arthritis -- thus, give stress dose IV hydrocortisone 100mg TID for now IV fluids change rocephin to ertapenem (h/o ESBL E.coli) + daptomycin (previous h/o enterococcus & coag neg staph UTIs) cont andrews appreciate urology assistance (2) Severe sepsis: Plan: 2nd to #1 (3) Adrenal crisis: Plan: hold PO prednisone give hydrocortisone 100mg IV TID for stress dose purposes and in light of hypotension (4) BPH (benign prostatic hyperplasia): Plan: can resume finasteride can continue flomax only if BP will allow (5) Parkinson disease: Plan: chronic, long-standing dx continue sinemet at home dosing (6) Sepsis associated hypotension: Plan: IV fluids IV hydrocortisone cont midodrine; consider increase to 10mg TID if needed (7) Acute kidney injury superimposed on CKD: Plan: peak Cr 2.5 at time of presentation yesterday improved today with Cr of 1.9 this morning cont IV fluids repeat BMP am (8) Elevated troponin I level: Plan: peak trop 47 this is NOT due to ACS but rather myocardial demand ischemia in the setting of severe sepsis (9) Hematuria: Plan: 2nd to recent cystoscopy, laser litho, stent placement as well as UTI should clear over the next few days (10) Inflammatory polyarthritis: Plan: on chronic prednisone 5mg daily hold prednisone; change to IV hydrocortisone (11) CKD (chronic kidney disease) stage 3, GFR 30-59 ml/min: Plan: baseline Cr about 1.3/1.4 (baseline CrCl 45-60 c/w stage 3a disease) bmp am (12) Kidney stone: Plan: recent R-sided kidney stone s/p laser lithotripsy 04/15 now with R-sided ureteral stent which is in good position on CT a/p yesterday no residual large stone fragments or other stones on CT (13) Acute metabolic encephalopathy: Plan: 2nd sepsis/UTI supportive care avoid benzos (14) Hypocalcemia: Plan: uncertain of cause but total level - with normal albumin - is <7 today calcium gluconate 1gm x 1 now repeat a BMP later today Plan will need PT/OT recent vomiting - improved; 2nd gastritis? pepcid 20mg IV x 1 now then daily PPI monitor updated at bedside patient w/ prior h/o DVT - once urine clears will start chemical DVT proph Admission and Anticipated Discharge Date Admission Date: April 15, 2024 Subjective resting comfortably in bed during the visit at bedside he was mildly confused he stated "someone was in here earlier and said I could go" he complains of low back pain denies abd pain had vomiting pre-admission but none since then he apparently had told his earlier this am he was hungry andrews draining dark urine Review of Systems Review of Systems: gen - fatigued, weak cv - no chest pain, no orthopnea pulm - no dyspnea GI - no abd pain Physical Exam Physical Exam: gen - awake, alert - but confused; NAD mouth - MM very dry neck - no JVD heart - RRR, s1 s2, 2/6 systolic murmur RUSB/LSB lungs - CTA b/l abd - soft NT ND BS+ back - no flank tenderness b/l to palpation ext - no edema, varicose veins b/l, pulses 2+ b/l, warm feet psych - mildly confused Results & Data Results & Data Vital Signs (Past 12 Hours) Vital Signs Temp Pulse Pulse Resp BP BP BP 04/16/24 07:34 36.6 C 77 18 97/60 L 04/16/24 07:25 04/16/24 07:00 78 04/16/24 06:00 78 95/58 L 04/16/24 05:00 78 96/68 L 04/16/24 04:38 75 88/62 L 04/16/24 04:20 36.8 C 75 18 88/60 L 04/16/24 03:52 70 92/58 L 04/16/24 03:21 72 72/50 L 04/16/24 02:15 83 90/63 L 04/16/24 01:45 86 100/65 04/16/24 01:26 89 91/53 L 04/16/24 01:02 91 H 04/16/24 01:00 36.6 C 92 H 20 99/64 L 04/16/24 00:34 100/67 04/16/24 00:30 95 H 20 105/69 04/16/24 00:12 94 H 19 83/57 L 04/15/24 23:21 96 H 20 98/68 L 04/15/24 23:03 95 H 19 94/72 L Pulse Ox O2 Del Method 04/16/24 07:34 95 Room Air 04/16/24 07:25 Room Air 04/16/24 07:00 04/16/24 06:00 04/16/24 05:00 04/16/24 04:38 04/16/24 04:20 94 Room Air 04/16/24 03:52 04/16/24 03:21 04/16/24 02:15 04/16/24 01:45 04/16/24 01:26 04/16/24 01:02 04/16/24 01:00 95 Room Air 04/16/24 00:34 04/16/24 00:30 04/16/24 00:12 04/15/24 23:21 94 04/15/24 23:03 94 Laboratory Results Laboratory Results - last 24 hr 04/15/24 04/15/24 04/15/24 20:42 20:50 21:39 WBC 7.65 RBC 4.39 L Hgb 15.0 Hct 43.7 MCV 99.5 MCH 34.2 H MCHC 34.3 RDW Std Deviation 48.8 H RDW Coeff of Capo 13.3 Plt Count 130 MPV 10.5 Immature Gran % (Auto) 0.7 Neut % (Auto) 87.6 Lymph % (Auto) 1.7 [place] % (Auto) 8.1 Eos % (Auto) 1.8 Baso % (Auto) 0.1 Neut # (Auto) 6.70 H Lymph # (Auto) 0.13 L [place] # (Auto) 0.62 H Eos # (Auto) 0.14 Baso # (Auto) 0.01 Immature Gran # (Auto) 0.05 PT 11.7 INR 1.1 APTT 27 PTT Ratio 1.0 Sodium 137 Potassium 4.9 Chloride 107 Carbon Dioxide 19 L Anion Gap 11 BUN 49 H Creatinine 2.54 H Est Cr Clr Drug Dosing 23.8 Est GFR ( Amer) 26.2 Est GFR (Non-Af Amer) 22.6 BUN/Creatinine Ratio 19.3 Glucose 127 H Lactate 2.9 H* Calcium 8.6 Phosphorus Magnesium 1.4 L Total Bilirubin 0.8 Direct Bilirubin 0.2 AST 9 L ALT 5 L Alkaline Phosphatase 46 Troponin I High Sens 43.4 H Total Protein 6.9 Albumin 4.3 Procalcitonin 3.74 H Urine Color Dark Yellow Urine Appearance Turbid A Urine pH 6.0 Ur Specific [place] 1.020 Urine Protein 3+ H Urine Glucose (UA) Negative Urine Ketones Negative Urine Blood 3+ H Urine Nitrite Positive A Urine Bilirubin 1+ H Urine Urobilinogen Negative Ur Leukocyte Esterase 2+ H Urine WBC (Auto) 21-50 H Urine RBC (Auto) >20 H U Hyaline Cast (Auto) 3-5 H U Epithel Cells (Auto) 0-2 Urine Bacteria (Auto) 1+ H Stl C. diff Tox B Gene 04/15/24 04/15/24 04/16/24 22:29 22:30 05:30 WBC RBC Hgb Hct MCV MCH MCHC RDW Std Deviation RDW Coeff of Capo Plt Count MPV Immature Gran % (Auto) Neut % (Auto) Lymph % (Auto) [place] % (Auto) Eos % (Auto) Baso % (Auto) Neut # (Auto) Lymph # (Auto) [place] # (Auto) Eos # (Auto) Baso # (Auto) Immature Gran # (Auto) PT INR APTT PTT Ratio Sodium Potassium Chloride Carbon Dioxide Anion Gap BUN Creatinine Est Cr Clr Drug Dosing Est GFR ( Amer) Est GFR (Non-Af Amer) BUN/Creatinine Ratio Glucose Lactate 2.3 H* Calcium Phosphorus Magnesium Total Bilirubin Direct Bilirubin AST ALT Alkaline Phosphatase Troponin I High Sens 47.8 H Total Protein Albumin Procalcitonin Urine Color Urine Appearance Urine pH Ur Specific [place] Urine Protein Urine Glucose (UA) Urine Ketones Urine Blood Urine Nitrite Urine Bilirubin Urine Urobilinogen Ur Leukocyte Esterase Urine WBC (Auto) Urine RBC (Auto) U Hyaline Cast (Auto) U Epithel Cells (Auto) Urine Bacteria (Auto) Stl C. diff Tox B Gene Negative Cdiff Gene 04/16/24 06:14 WBC 6.31 RBC 3.60 L Hgb 12.1 L D Hct 35.4 L MCV 98.3 MCH 33.6 MCHC 34.2 RDW Std Deviation 48.6 H RDW Coeff of Acpo 13.4 Plt Count 111 L MPV 10.3 Immature Gran % (Auto) 0.2 Neut % (Auto) 85.4 Lymph % (Auto) 5.1 [place] % (Auto) 6.7 Eos % (Auto) 2.4 Baso % (Auto) 0.2 Neut # (Auto) 5.40 Lymph # (Auto) 0.32 L [place] # (Auto) 0.42 Eos # (Auto) 0.15 Baso # (Auto) 0.01 Immature Gran # (Auto) 0.01 PT INR APTT PTT Ratio Sodium 137 Potassium 4.4 Chloride 113 H Carbon Dioxide 18 L Anion Gap 6 BUN 44 H Creatinine 1.90 H D Est Cr Clr Drug Dosing 31.9 Est GFR ( Amer) 37.2 Est GFR (Non-Af Amer) 32.1 BUN/Creatinine Ratio 23.2 H Glucose 109 H Lactate Calcium 6.9 L Phosphorus 1.7 L Magnesium 1.8 Total Bilirubin Direct Bilirubin AST ALT Alkaline Phosphatase Troponin I High Sens Total Protein Albumin 3.4 Procalcitonin Urine Color Urine Appearance Urine pH Ur Specific [place] Urine Protein Urine Glucose (UA) Urine Ketones Urine Blood Urine Nitrite Urine Bilirubin Urine Urobilinogen Ur Leukocyte Esterase Urine WBC (Auto) Urine RBC (Auto) U Hyaline Cast (Auto) U Epithel Cells (Auto) Urine Bacteria (Auto) Stl C. diff Tox B Gene PG Care Time/CCT Total # of Minutes Spent Total Time Spent with Patient: Total time spent is greater than 50% in coordination of care (as documented) at patient's floor/unit and/or counseling patient: Coding Level of Care Code 83628 SUB INP/OBS CARE 3/50MIN Diagnoses Complicated UTI (urinary tract infection) N39.0 Severe sepsis A41.9; R65.20 Adrenal crisis E27.2 BPH (benign prostatic hyperplasia) N40.0 Parkinson disease G20 Sepsis associated hypotension A41.9; I95.9 Acute kidney injury superimposed on CKD N17.9; N18.9 Elevated troponin I level R79.89 Hematuria R31.0 Hematuria type: gross Inflammatory polyarthritis M06.4 CKD (chronic kidney disease) stage 3, GFR 30-59 ml/min N18.30 Kidney stone N20.0 Acute metabolic encephalopathy G93.41 Hypocalcemia E83.51 (9) Hematuria Hematuria type: gross Qualified Code(s): R31.0 - Gross hematuria
[2024-04-16] MEDS: ERTAPENEM SODIUM 1,000 MG in SYRINGE 0 ML IV SCH (11:19)
[2024-04-16] MEDS: ARTIFICIAL TEARS OP SCH (11:20)
--- NOTE | 2024-04-16 11:51 | Urology Consultation ---
Date of Consultation April 16, 2024 Assessment & Plan (1) Sepsis associated hypotension: (2) Acute UTI (urinary tract infection): (3) Urinary retention: 84 yo/M status post right ureteroscopy for stone treatment and urethral dilation on 04/15/[address] Abdullahi admitted for UTI/sepsis with hypotension, urinary retention, and hematuria. Patient is afebrile, SBPs in the 90s this morning Urine and blood cultures are pending Labs reviewedcreatinine improved to 1.9, no leukocytosis, hemoglobin 12.1 Recommend continue broad-spectrum antibiotics and narrow per sensitivity data when available Continue to trend labs Ponce catheter is draining yellow urine with intermittent bloody sediment in tubing Hematuria can be expected with ureteral stent in place CT imaging reviewed and right stent is in good position No acute intervention at this time Recommend maintain Ponce catheter for approximately 1 week We will arrange follow-up with our service for Ponce catheter and ureteral stent removal Continue supportive care, antibiotics and medical management per hospital medicine service will follow peripherally, contact our service with any additional questions or concerns History of Present Illness Attending Physician: Kyle Garcia MD History of Present Illness This is an 84-year-old male who is status post right ureteroscopy for stone treatment and urethral dilation on 04/15/[address] Abdullahi who presented to the emergency department via EMS later in the evening for evaluation of weakness and difficulty voiding. The patient was found to be hypotensive and had a small fluid bolus prior to arrival. On arrival to ED, he was afebrile, blood pressure 104/71. Lab work reviewed and creatinine 2.54, WBC 7.65, hemoglobin 15.0. Lactate 2.9. Urinalysis showed turbid urine, 3+ blood, positive nitrates, 2+ LE, 21-50 WBC, >20 RBC, and 1+ bacteria. Ponce catheter was placed in the emergency department. CT abdomen pelvis showed right ureteral stent in position, no right hydronephrosis noted. ED course: IV fluids and ceftriaxone. He was admitted to the hospital medicine service for sepsis with hypotension, UTI, acute urinary retention and hematuria. Patient seen and examined at bedside this morning. He is awake and resting in bed. Ponce patent and draining. No acute issues overnight. Denies flank or abdominal pain at present. Denies nausea, vomiting, fever or chills. Allergies Allergy/AdvReac Type Severity Reaction Status Date / Time Sulfa (Sulfonamide Allergy Mild itchy Verified 04/15/24 06:53 Antibiotics) alfuzosin [From Uroxatral] Allergy Unknown PT NOT SURE Verified 04/15/24 06:53 clindamycin Allergy Unknown PT NOT SURE Verified 04/15/24 06:53 aspirin AdvReac Mild upset Verified 04/15/24 06:53 stomach ciprofloxacin AdvReac Mild Joint Pain Verified 04/15/24 06:53 levofloxacin [From Levaquin] AdvReac Mild affected Verified 04/15/24 06:53 tendons in wrist Quinolones AdvReac Mild myalgia Verified 04/15/24 06:53 Home Medications Medication Instructions Recorded Confirmed Type diclofenac sodium 1 % topical gel 2 g topical UD PRN Knee Pain 08/17/18 04/15/24 History (Voltaren) finasteride 5 mg tablet 5 mg PO QAM 07/05/19 04/15/24 History prednisone 5 mg tablet 5 mg PO QAM 08/22/19 04/15/24 History methenamine hippurate 1 gram tablet 1 gm PO HS #30 tabs 09/17/19 04/15/24 Rx cholecalciferol (vitamin D3) 25 1,000 units PO TID 09/19/19 04/15/24 History mcg (1,000 unit) capsule (Vitamin D3) acetaminophen 500 mg tablet 1,000 mg PO UD PRN Pain 01/09/20 04/15/24 History ascorbic acid (vitamin C) 500 mg 500 mg PO QAM 01/09/20 04/15/24 History tablet sodium chloride 1 gram tablet 1 g PO TID 90 days #270 tabs 10/23/20 04/15/24 Rx celecoxib 200 mg capsule (Celebrex) 200 mg PO QAM 07/09/21 04/15/24 History peg 400-propylene glycol 0.4 %-0.3 1 drp ophthalmic (eye) BID 07/09/21 04/15/24 History % eye drops ferrous gluconate 324 mg (36 mg 324 mg PO QDL 12/27/21 04/15/24 History iron) tablet sennosides 8.6 mg-docusate sodium 2 - 4 tab-cap PO DAILY PRN 12/27/21 04/15/24 History 50 mg tablet (Colace 2-In-1) constipation Wheelchair (Powered) (Power #1 ea 08/16/22 04/10/24 Rx Wheelchair) clotrimazole-betamethasone 1 1 applic topical .qhs PRN Pain 08/24/23 04/15/24 History %-0.05 % topical cream gabapentin 100 mg capsule 100 mg PO HS #30 caps 09/08/23 04/15/24 Rx tramadol 50 mg tablet 50 mg PO Q6H PRN pain #30 tabs 11/15/23 04/15/24 Rx pantoprazole 40 mg tablet,delayed 40 mg PO BID #180 tabs 12/18/23 04/15/24 Rx release (Protonix) midodrine 10 mg tablet 5 mg (1/2 x 10 mg) PO TID 90 days 12/27/23 04/15/24 Rx #135 tabs carbidopa 25 mg-levodopa 250 mg 1 tab PO QID #90 tabs 03/08/24 04/15/24 Rx tablet carbidopa ER 50 mg-levodopa 200 mg 1 tab PO BID 14 days #28 tabs 03/18/24 04/15/24 Rx tablet,extended release nitrofurantoin 100 mg PO Q12H 7 days #14 caps 04/05/24 04/15/24 Rx monohydrate/macrocrystals 100 mg capsule (Macrobid) famotidine 20 mg tablet 20 mg PO QAM 04/08/24 04/15/24 History pimavanserin 10 mg tablet 10 mg PO QAM 04/08/24 04/15/24 History (Nuplazid) vibegron 75 mg tablet (Gemtesa) 75 mg PO QPM 04/08/24 04/15/24 History amoxicillin 500 mg-potassium 1 tab PO BID #14 tabs 04/15/24 04/15/24 Rx clavulanate 125 mg tablet clotrimazole-betamethasone 1 1 applic topical TID PRN Swelling 04/15/24 04/15/24 Rx %-0.05 % topical cream #45 grams ondansetron 8 mg disintegrating 8 mg PO Q8H PRN nausea and 04/15/24 04/15/24 Rx tablet vomiting #30 tabs oxycodone-acetaminophen 7.5 mg-325 1 tab PO Q8H PRN pain #7 tabs 04/15/24 04/15/24 Rx mg tablet (Percocet) phenazopyridine 200 mg tablet 200 mg PO Q8H PRN pain #10 tabs 04/15/24 04/15/24 Rx (Pyridium) tamsulosin 0.4 mg capsule 0.4 mg PO DAILY #30 caps 04/15/24 04/15/24 Rx Patient History Medical History Arthritis Hallucination mild>seeing bugs (reason for nuplazid) Restless legs Pacemaker (2019) Dr. Foster cards>gets checked monthly remote ([facility] [place]?) Left knee DJD Right knee DJD Barretts esophagus Hydrocele Dysphonia Abnormal ankle brachial index (FATUMA) Bifascicular block Chronic since at least 2017 Sinus node dysfunction S/p pacemaker placed- had 3 second pause found on loop recorder History of subdural hematoma 2018--d/t fall and was on Eliquis Degenerative disc disease History of DVT of lower extremity approx 10 YR AGO right leg--happened during surgical procedure, was on a blood thinner at that time Atrial flutter with rapid ventricular response ? dx>pacemaker implanted for irregular hr GERD without esophagitis Insomnia Surgical History H/O repair of left rotator cuff History of prostate surgery History of cataract surgery rt/left History of cardiac cath "long time ago/no stents" History of lumbar surgery bone spur removal Status post evacuation of subdural hematoma 08/2018 @ [facility] from fall History of hand surgery left hand--fingers ricardo d/t Parkinson's History of carpal tunnel release of both wrists History of total left hip replacement Hx of vasectomy History of bowel resection 2014--12 inches d/t diverticulitis @ [facility] [place] History of inguinal hernia repair History of colonoscopy with polypectomy History of esophagogastroduodenoscopy (EGD) History of tooth extraction Hx of fusion of cervical spine VERY limited ROM>more than 3 levels fused (11+ years ago) Family History Mother Myocardial infarction Colorectal cancer Other Heart problem No family history of adverse response to anesthesia Denies family history of Ovarian cancer Prostate cancer Breast cancer Lung cancer Social History Smoking Status: Former smoker Tobacco Type: Cigarettes Age Started Using Tobacco: 21; Age Quit Using Tobacco: 25; packs per day: 1; Cigarettes Per Day: 50+ YR AGO; Second Hand Exposure: No; Do You Dip or Chew Tobacco: No; Hx Alcohol Use: Yes Hx Substance Use: No Preferred Language: Wallisian Communication Ability: Effective Visual Impairment: Limited Hearing Ability: Normal Nuclear Licensing Engineer Required: No Beliefs That Will Affect Care: None marital status: Current Living Situation: Spouse current occupational status: retired How many Children do You have: 5 Feels Safe at Home: Yes Childhood Exposure to Second-Hand Smoke: Yes Diet: regular caffeine: Yes Dental Care, Regularly: Yes Physical Activity Frequency: 3-4 Times per Week Physical Activity Frequency Comment: chair exercises Seatbelt Use: always Sunscreen Use: No (not in the sun) Do you think of yourself as: straight/heterosexual Assistive Devices: Denture - Upper, Glasses and Wheelchair Review of Systems Review of Systems: All systems reviewed & are unremarkable except as noted in HPI & below Physical Exam Constitutional: well developed and well nourished; no acute distress Respiratory: normal respiratory effort; no respiratory distress and no labored breathing Gastrointestinal (Abdomen): Inspection/Auscultation: abdomen normal to inspection Musculoskeletal: Head/Neck/Chest: normocephalic Neurologic: moves all extremities and awake Psychiatric: Orientation: alert and oriented x 3 Genitourinary: Ponce patent and draining yellow urine with some bloody sediment in tubing noted Results & Data Vital Signs (Past 12 Hours) Vital Signs Temp Pulse Pulse Resp BP BP BP 04/16/24 07:34 36.6 C 77 18 97/60 L 04/16/24 07:25 04/16/24 07:00 78 04/16/24 06:00 78 95/58 L 04/16/24 05:00 78 96/68 L 04/16/24 04:38 75 88/62 L 04/16/24 04:20 36.8 C 75 18 88/60 L 04/16/24 03:52 70 92/58 L 04/16/24 03:21 72 72/50 L 04/16/24 02:15 83 90/63 L 04/16/24 01:45 86 100/65 08/13/24 01:26 89 91/53 L 04/16/24 01:02 91 H 04/16/24 01:00 36.6 C 92 H 20 99/64 L 04/16/24 00:34 100/67 04/16/24 00:30 95 H 20 105/69 04/16/24 00:12 94 H 19 83/57 L Pulse Ox O2 Del Method 04/16/24 07:34 95 Room Air 04/16/24 07:25 Room Air 04/16/24 07:00 04/16/24 06:00 04/16/24 05:00 04/16/24 04:38 04/16/24 04:20 94 Room Air 04/16/24 03:52 04/16/24 03:21 04/16/24 02:15 04/16/24 01:45 04/16/24 01:26 04/16/24 01:02 04/16/24 01:00 95 Room Air 04/16/24 00:34 04/16/24 00:30 04/16/24 00:12 PG Care Time/CCT Total # of Minutes Spent Total Time Spent with Patient: Total time spent is greater than 50% in coordination of care (as documented) at patient's floor/unit and/or counseling patient: Coding Level of Care Code 11209 INT INP/OBS CARE 2/55MIN Diagnoses Sepsis associated hypotension A41.9; I95.9 Acute UTI (urinary tract infection) N39.0 Urinary retention R33.9
[2024-04-16] MEDS: DAPTOmycin 425 MG in SYRINGE 0 ML IV SCH (12:17)
[2024-04-16] MEDS: FAMOTIDINE 20MG IV PUSH 20 MG/5 ML SYR IV STA (12:17)
[2024-04-16] MEDS: HYDROCORTISONE SOD 100 MG in SYRINGE 0 ML IV SCH (13:43)
[2024-04-16] MEDS ORDERED: HYDROCORTISONE SOD 50 MG in SYRINGE 0 ML IV SCH (14:00)
[2024-04-16 17:32] LABS: BUN Creatinine Ratio 25.1 (10-20); Creatinine Clr Calc Pharmacy 36.3 ml/min; Est GFR (African American) 43.5 ml/min; Est GFR (Non-African American) 37.5 ml/min; Potassium 4.1 mmol/L (3.5-5.1)
[2024-04-16] MEDS: GABAPENTIN 100 MG CAP PO SCH (20:22)
[2024-04-16] MEDS: TAMSULOSIN HCL 0.4 MG CAP PO SCH (20:23)
[2024-04-16] MEDS: VIBEGRON 75 MG TAB PO SCH (20:24)
[2024-04-16] MEDS: POT PHOSPHATE MONOBASIC W/ SOD TAB PO SCH (20:25)
[2024-04-16] MEDS: QUEtiapine FUMARATE 25 MG TABLET PO SCH (20:25)
[2024-04-16] MEDS ORDERED: cefTRIAXone SODIUM 2,000 MG/50 ML BAG IV SCH (21:00)
[2024-04-17 06:35] LABS: Basophils # (auto) 0.01 K/uL (0.00-0.20); Basophils % (auto) 0.2 %; Eosinophils # (auto) 0.03 K/uL (0.00-0.50); Eosinophils % (auto) 0.5 %; Hematocrit (blood only) 35.4 % (42.0-52.0); Immature Granulocytes # (auto) 0.03 K/uL (0.01-0.20); Immature Granulocytes % (auto) 0.5 %; Lymphocytes # (auto) 0.45 K/uL (1.20-3.40); Lymphocytes % (auto) 7.1 %; Mean Corpuscular Hemoglobin 32.8 pg (25.0-34.0); Mean Corpuscular Hgb Conc 33.9 g/dL (32.0-36.0); Mean Corpuscular Volume 96.7 fL (80.0-100.0); Mean Platelet Volume 10.2 fL (9.4-12.4); Monocytes # (auto) 0.37 K/uL (0.11-0.59); Monocytes % (auto) 5.8 %; Neutrophils # (auto) 5.49 K/uL (1.40-6.50); Neutrophils % (auto) 85.9 %; Platelet Count 115 K/uL (130-400); RDW Coefficient of Variation 13.2 % (11.5-14.5); RDW Standard Deviation 47.4 fL (36.4-46.3); Red Blood Count 3.66 M/uL (4.70-6.10); White Blood Count 6.38 K/ul (4.8-10.8)
[2024-04-17 06:54] LABS: Albumin Level 3.6 gm/dl (3.4-5.0); BUN Creatinine Ratio 23.7 (10-20); Creatinine Clr Calc Pharmacy 51.3 ml/min; Est GFR (African American) 66.2 ml/min; Est GFR (Non-African American) 57.1 ml/min; Phosphorus 1.6 mg/dl (2.5-4.9); Potassium 3.8 mmol/L (3.5-5.1)
[2024-04-17] MEDS: POT PHOSPHATE MONOBASIC W/ SOD TAB PO SCH (08:29)
[2024-04-17] MEDS: PIMAVANSERIN TARTRATE PO SCH (08:29)
[2024-04-17] MEDS: PANTOprazole 40 MG TAB PO SCH (08:42)
--- NOTE | 2024-04-17 09:02 | Electrocardiogram Report ---
Test Reason : Blood Pressure : */* mmHG Vent. Rate : 78 BPM Atrial Rate : 78 BPM P-R Int : 176 ms QRS Dur : 122 ms QT Int : 410 ms P-R-T Axes : -2 -58 -49 degrees QTcB Int : 467 ms Normal sinus rhythm Right bundle branch block Left anterior fascicular block Bifascicular block Nonspecific T wave abnormality Abnormal ECG When compared with ECG of 15-Apr-2024 20:46, Criteria for Septal infarct are no longer Present Nonspecific T wave abnormality, worse in Inferior leads Nonspecific T wave abnormality now evident in Lateral leads Confirmed by Lance Branch ([id number]) on 04/17/2024 9:02:02 AM Referred By: Arnaldo Abdullahi Confirmed By: Lance Branch
--- NOTE | 2024-04-17 09:24 | Electrocardiogram Report ---
Test Reason : Blood Pressure : */* mmHG Vent. Rate : 92 BPM Atrial Rate : 92 BPM P-R Int : 168 ms QRS Dur : 122 ms QT Int : 404 ms P-R-T Axes : 89 -47 98 degrees QTcB Int : 499 ms Sinus rhythm with Premature atrial complexes Right bundle branch block Left anterior fascicular block Bifascicular block Moderate voltage criteria for LVH, may be normal variant Abnormal ECG When compared with ECG of 16-Apr-2024 06:02, (unconfirmed) No significant change Confirmed by Lance Branch ([id number]) on 04/17/2024 9:23:27 AM Referred By: Arnaldo Abdullahi Confirmed By: Lance Branch
[2024-04-17] MEDS: HYDROCORTISONE SOD 50 MG in SYRINGE 0 ML IV SCH (13:16)
--- NOTE | 2024-04-17 14:40 | Hospitalist Progress Note ---
Date of Service April 17, 2024 Assessment & Plan (1) Complicated UTI (urinary tract infection): Plan: suspected UTI in the setting of recent urological surgery 04/15/24 (cystoscopy, laser lithotripsy, right ureteral stent placement) despite high suspicion for UTI his urine cx did not grow a specific pathogen none the less continue ertapenem (h/o ESBL E.coli) + daptomycin (previous h/o enterococcus & coag neg staph UTIs) cont andrews appreciate urology assistance (2) Severe sepsis: Plan: 2nd to #1 resolved (3) Adrenal crisis: Plan: improved BPs normal since yesterday afternoon cont to hold PO prednisone cont hydrocortisone but lowe dose from 100mg IV TID to 50mg TID (for stress dose purposes) (4) BPH (benign prostatic hyperplasia): Plan: resume flomax tomorrow AM if BPs are stable (5) Parkinson disease: Plan: chronic, long-standing dx continue sinemet at home dosing (6) Sepsis associated hypotension: Plan: resolved s/p IV fluids and IV hydrocortisone cont midodrine (7) Acute kidney injury superimposed on CKD: Plan: peak Cr 2.5 at time of presentation improved with Cr of 1.1 today stop IV fluids repeat BMP am (8) Elevated troponin I level: Plan: peak trop 47 this is NOT due to ACS but rather myocardial demand ischemia in the setting of severe sepsis (9) Hematuria: Plan: 2nd to recent cystoscopy, laser litho, stent placement as well as UTI improving (10) Inflammatory polyarthritis: Plan: on chronic prednisone 5mg daily hold prednisone; cont IV hydrocortisone (11) CKD (chronic kidney disease) stage 3, GFR 30-59 ml/min: Plan: baseline Cr about 1.3/1.4 (baseline CrCl 45-60 c/w stage 3a disease) bmp am (12) Kidney stone: Plan: recent R-sided kidney stone s/p laser lithotripsy 04/15 now with R-sided ureteral stent which is in good position on CT a/p no residual large stone fragments or other stones on CT (13) Acute metabolic encephalopathy: Plan: 2nd sepsis/UTI supportive care avoid benzos resumed Nuplazid this am gave seroquel last pm while waiting for home stock of Nuplazid to arrive can stop seroquel (14) Hypocalcemia: Plan: uncertain of cause but level reasonable today repeat in am Plan PT/OT both advising rehab -- pt agreeable social work assistance appreciated updated at bedside patient w/ prior h/o DVT - since urine is clearing start heparin for DVT proph in am tomorrow Admission and Anticipated Discharge Date Admission Date: April 15, 2024 Subjective tele overnight wnl was tolerating clear liquid diet diet advanced to regular diet - tolerating that as well occasional heartburn type symptoms had a transient abd discomfort over the bladder region this am - now resolved no vomiting overall feels better having hallucinations from his PD we discussed that PT/OT both advising rehab -- he is willing to go for such supportive Review of Systems Review of Systems: gen - no fevers or chills cv - no chest pain pulm - no dyspnea Physical Exam Physical Exam: gen - awake, alert; sitting in chair; looks much better today; NAD mouth - MMM today neck - no JVD heart - RRR, s1 s2, 2/6 systolic murmur RUSB/LSB lungs - CTA b/l abd - soft NT ND BS+ back - no flank tenderness b/l to palpation ext - no edema, pulses 2+ b/l, warm feet psych - confusion improved today Results & Data Results & Data Vital Signs (Past 12 Hours) Vital Signs Temp Pulse Resp BP BP Pulse Ox O2 Del Method 04/17/24 10:56 36.5 C 94 H 20 100/62 95 Room Air 04/17/24 07:00 36.5 C 89 20 132/82 95 Room Air 04/17/24 03:33 36.6 C 78 18 113/63 95 Room Air Laboratory Results Laboratory Results - last 24 hr 04/16/24 04/17/24 16:50 05:57 WBC 6.38 RBC 3.66 L Hgb 12.0 L Hct 35.4 L MCV 96.7 MCH 32.8 MCHC 33.9 RDW Std Deviation 47.4 H RDW Coeff of Capo 13.2 Plt Count 115 L MPV 10.2 Immature Gran % (Auto) 0.5 Neut % (Auto) 85.9 Lymph % (Auto) 7.1 [place] % (Auto) 5.8 Eos % (Auto) 0.5 Baso % (Auto) 0.2 Neut # (Auto) 5.49 Lymph # (Auto) 0.45 L [place] # (Auto) 0.37 Eos # (Auto) 0.03 Baso # (Auto) 0.01 Immature Gran # (Auto) 0.03 Sodium 137 140 Potassium 4.1 3.8 Chloride 111 H 113 H Carbon Dioxide 19 L 20 L Anion Gap 7 7 BUN 42 H 28 H Creatinine 1.67 H 1.18 D Est Cr Clr Drug Dosing 36.3 51.3 Est GFR ( Amer) 43.5 66.2 Est GFR (Non-Af Amer) 37.5 57.1 BUN/Creatinine Ratio 25.1 H 23.7 H Glucose 110 H 125 H Calcium 7.0 L 7.0 L Phosphorus 1.6 L Albumin 3.6 Diagnostic Findings Microbiology 04/15/24 20:54 Blood Aerobic Blood Culture - Preliminary No growth in Aerobic bottle after 48 hours. 04/15/24 20:54 Blood Anaerobic Blood Culture - Preliminary No growth in Anaerobic bottle after 48 hours. 04/15/24 21:39 Urine,Clean Catch Urine Culture - Final No growth - less than 1,000 colonies/mL. PG Care Time/CCT Total # of Minutes Spent Total Time Spent with Patient: Total time spent is greater than 50% in coordination of care (as documented) at patient's floor/unit and/or counseling patient: Coding Level of Care Code 11169 SUB INP/OBS CARE 235MIN Diagnoses Complicated UTI (urinary tract infection) N39.0 Severe sepsis A41.9; R65.20 Adrenal crisis E27.2 BPH (benign prostatic hyperplasia) N40.0 Parkinson disease G20 Sepsis associated hypotension A41.9; I95.9 Acute kidney injury superimposed on CKD N17.9; N18.9 Elevated troponin I level R79.89 Hematuria R31.0 Hematuria type: gross Inflammatory polyarthritis M06.4 CKD (chronic kidney disease) stage 3, GFR 30-59 ml/min N18.30 Kidney stone N20.0 Acute metabolic encephalopathy G93.41 Hypocalcemia E83.51 (9) Hematuria Hematuria type: gross Qualified Code(s): R31.0 - Gross hematuria
[2024-04-17] MEDS: DICLOFENAC SOD 1% GEL 100 GM TUBE EXT SCH (17:12)
[2024-04-18] MEDS: HYDROCORTISONE SOD 25 MG in SYRINGE 0 ML IV SCH (05:59)
[2024-04-18 07:57] LABS: Basophils # (auto) 0.01 K/uL (0.00-0.20); Basophils % (auto) 0.1 %; Eosinophils # (auto) 0.07 K/uL (0.00-0.50); Eosinophils % (auto) 0.9 %; Hemoglobin 11.9 g/dl (14.0-18.0); Immature Granulocytes # (auto) 0.04 K/uL (0.01-0.20); Immature Granulocytes % (auto) 0.5 %; Lymphocytes # (auto) 0.68 K/uL (1.20-3.40); Lymphocytes % (auto) 9.2 %; Mean Corpuscular Hemoglobin 33.5 pg (25.0-34.0); Mean Corpuscular Volume 98.6 fL (80.0-100.0); Mean Platelet Volume 10.1 fL (9.4-12.4); Monocytes # (auto) 0.57 K/uL (0.11-0.59); Monocytes % (auto) 7.7 %; Neutrophils % (auto) 81.6 %; Platelet Count 126 K/uL (130-400); RDW Coefficient of Variation 13.3 % (11.5-14.5); RDW Standard Deviation 47.8 fL (36.4-46.3); Red Blood Count 3.55 M/uL (4.70-6.10); White Blood Count 7.37 K/ul (4.8-10.8)
[2024-04-18 08:17] LABS: BUN Creatinine Ratio 21.7 (10-20); Calcium 6.9 mg/dl (8.6-10.3); Creatinine Clr Calc Pharmacy 56.9 ml/min; Est GFR (African American) 75.4 ml/min; Potassium 3.1 mmol/L (3.5-5.1)
[2024-04-18] MEDS ORDERED: SODIUM CHLORIDE 1 GM TABLET PO SCH (09:00)
[2024-04-18] MEDS: POTASSIUM CHLORIDE CRTAB 20 MEQ TABCR PO STA (09:35)
[2024-04-18] MEDS: CALCIUM CARBONATE 500 MG CHEWABLE TAB PO SCH (09:35)
[2024-04-18] MEDS: AMOXICILLIN/CLAVULANATE 875 MG TAB PO SCH (16:28)
--- NOTE | 2024-04-18 16:28 | Hospitalist Progress Note ---
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, and most e.coli strains except ESBL e.coli) today rash started BEFORE augmentin was given cont andrews appreciate urology assistance (2) Severe sepsis: Plan: 2nd to #1 resolved (3) Adrenal crisis: Plan: improved/resolved stop IV hydrocortisone change to PO prednisone starting tomorrow am (4) BPH (benign prostatic hyperplasia): Plan: cont flomax (5) Parkinson disease: Plan: chronic, long-standing dx continue sinemet at home dosing (6) Sepsis associated hypotension: Plan: resolved s/p IV fluids and IV hydrocortisone cont midodrine (7) Acute kidney injury superimposed on CKD: Plan: peak Cr 2.5 at time of presentation improved with Cr of 1.1 once again today he is off IV fluids repeat BMP this afternoon - stable (8) Elevated troponin I level: Plan: peak trop 47 this is NOT due to ACS but rather myocardial demand ischemia in the setting of severe sepsis (9) Hematuria: Plan: 2nd to recent cystoscopy, laser litho, stent placement as well as UTI improving (10) Inflammatory polyarthritis: Plan: on chronic prednisone 5mg daily stop IV hydrocortisone later today; revert back to PO prednisone tomorrow and ultimately taper down to usual chronic daily 5mg dose (11) CKD (chronic kidney disease) stage 3, GFR 30-59 ml/min: Plan: baseline Cr about 1.3/1.4 (baseline CrCl 45-60 c/w stage 3a disease) bmp today with Cr 1.1 repeat BMP am (12) Kidney stone: Plan: recent R-sided kidney stone s/p laser lithotripsy 04/15 now with R-sided ureteral stent which is in good position on CT a/p no residual large stone fragments or other stones on CT (13) Acute metabolic encephalopathy: Plan: 2nd sepsis/UTI, hospital psychosis, discomfort from andrews, etc supportive care avoid benzos takes Nuplazid 10mg daily chronically this is a non-formulary med will increase it to 10mg BID stop seroquel hopefully we can avoid restraints tonight if the double dose of Nuplazid works ammonia level wnl B12 low normal --> replace with 1000mcg of B12 daily (oral) (14) Hypocalcemia: Plan: uncertain etiology 25-OH vit D level was normal in 02/2024 ionized calcium is low will replace IV/PO serial labs replace low K as needed (15) Rash: Plan: contact derm vs allergic rxn to IV abx vs other favor latter -- steroids may have been masking a larger reaction was on IV ertapenem & IV daptomycin; these were d/c could have been either agent doubt augmentin as culprit -- rash started BEFORE augmentin was given doubt voltaren gel -- uses this chronically at home send to allergy post-d/c for consideration of testing claritin 10mg daily for rash/itching ongoing prednisone will help topical triamcinolone cream 0.1% TID in thin amounts to problem areas re-eval tomorrow of note - eosinophils on cbc today were NOT elevated Plan PT/OT both advising rehab -- pt agreeable social work assistance appreciated with referrals updated at bedside today patient w/ prior h/o DVT - start heparin for DVT proph Admission and Anticipated Discharge Date Admission Date: April 15, 2024 Subjective tele wnl had rough night overnight with severe sundowning and confusion needed restraints this afternoon he has become more oriented and is calm restraints have been removed ate a good lunch now has a rash on his back, left arm, and around knees rash started sometime overnight he had previously been on 2 IV abx - both d/c rash is not pruritic he uses voltaren gel at home - this is a chronic med for him Review of Systems Review of Systems: gen - no fevers cv - no chest pain pulm - no dyspnea GI - no N/V Physical Exam Physical Exam: gen - awake, alert; sitting in bed; no agitation, no confusion mouth - MMM neck - no JVD heart - RRR, s1 s2, 2/6 systolic murmur RUSB/LSB lungs - CTA b/l abd - soft NT ND BS+ ext - no edema, pulses 2+ b/l skin - erythematous rash on left arm, back, upper chest, around knees; palm s/soles spared; face spared; lower abdomen and most of legs spared; some papules, some hive-like lesions; different shapes/sizes but NOT EM Results & Data Results & Data Vital Signs (Past 12 Hours) Vital Signs Temp Pulse Resp BP Pulse Ox O2 Del Method 04/18/24 11:48 36.6 C 73 17 133/76 96 Room Air 04/18/24 07:46 36.7 C 75 18 148/80 H 93 Room Air Laboratory Results Laboratory Results 04/18/24 04/18/24 04/18/24 07:10 17:29 18:22 WBC 7.37 RBC 3.55 L Hgb 11.9 L Hct 35.0 L MCV 98.6 MCH 33.5 MCHC 34.0 RDW Std Deviation 47.8 H RDW Coeff of Capo 13.3 Plt Count 126 L MPV 10.1 Immature Gran % (Auto) 0.5 Neut % (Auto) 81.6 Lymph % (Auto) 9.2 [place] % (Auto) 7.7 Eos % (Auto) 0.9 Baso % (Auto) 0.1 Neut # (Auto) 6.00 Lymph # (Auto) 0.68 L [place] # (Auto) 0.57 Eos # (Auto) 0.07 Baso # (Auto) 0.01 Immature Gran # (Auto) 0.04 Sodium 146 H 144 Potassium 3.1 L 3.6 Chloride 115 H 113 H Carbon Dioxide 23 23 Anion Gap 8 8 BUN 23 25 H Creatinine 1.06 1.13 Est Cr Clr Drug Dosing 56.9 53.4 Est GFR ( Amer) 75.4 69.8 Est GFR (Non-Af Amer) 65.0 60.2 BUN/Creatinine Ratio 21.7 H 22.1 H Glucose 114 H 139 H Calcium 6.9 L 7.3 L Ionized Calcium Cancelled 0.92 L Ammonia 27.0 Albumin 3.9 Vitamin B12 265 Diagnostic Findings Microbiology 04/15/24 20:54 Blood Aerobic Blood Culture - Preliminary No growth in Aerobic bottle after 48 hours. 04/15/24 20:54 Blood Anaerobic Blood Culture - Preliminary No growth in Anaerobic bottle after 48 hours. 04/15/24 21:39 Urine,Clean Catch Urine Culture - Final No growth - less than 1,000 colonies/mL. PG Care Time/CCT Total # of Minutes Spent Total Time Spent with Patient: Total time spent is greater than 50% in coordination of care (as documented) at patient's floor/unit and/or counseling patient: Coding Level of Care Code 64857 SUB INP/OBS CARE 3/50MIN Diagnoses Complicated UTI (urinary tract infection) N39.0 Severe sepsis A41.9; R65.20 Adrenal crisis E27.2 BPH (benign prostatic hyperplasia) N40.0 Parkinson disease G20 Sepsis associated hypotension A41.9; I95.9 Acute kidney injury superimposed on CKD N17.9; N18.9 Elevated troponin I level R79.89 Hematuria R31.0 Hematuria type: gross Inflammatory polyarthritis M06.4 CKD (chronic kidney disease) stage 3, GFR 30-59 ml/min N18.30 Kidney stone N20.0 Acute metabolic encephalopathy G93.41 Hypocalcemia E83.51 Rash R21 (9) Hematuria Hematuria type: gross Qualified Code(s): R31.0 - Gross hematuria
[2024-04-18 18:13] LABS: Albumin Level 3.9 gm/dl (3.4-5.0); BUN Creatinine Ratio 22.1 (10-20); Calcium 7.3 mg/dl (8.6-10.3); Creatinine Clr Calc Pharmacy 53.4 ml/min; Est GFR (African American) 69.8 ml/min; Est GFR (Non-African American) 60.2 ml/min; Potassium 3.6 mmol/L (3.5-5.1)
[2024-04-18] MEDS: TRIAMCINOLONE ACET 0.1% CR 80 GM TUBE EXT SCH (20:49)
[2024-04-18] MEDS: LORATADINE 10 MG TAB PO ONE (20:49)
[2024-04-18] MEDS: PIMAVANSERIN TARTRATE PO SCH (20:50)
[2024-04-18] MEDS ORDERED: ONDANSETRON INJ 2 MG/ML 2 ML VIAL IV PRN (21:11)
[2024-04-18] MEDS: LOPERAMIDE HCL 2 MG CAP PO PRN (22:29)
[2024-04-19 06:06] LABS: Hematocrit (blood only) 35.5 % (42.0-52.0); Hemoglobin 12.2 g/dl (14.0-18.0); Mean Corpuscular Hemoglobin 33.3 pg (25.0-34.0); Mean Corpuscular Hgb Conc 34.4 g/dL (32.0-36.0); Mean Platelet Volume 9.7 fL (9.4-12.4); Platelet Count 142 K/uL (130-400); RDW Coefficient of Variation 13.4 % (11.5-14.5); RDW Standard Deviation 47.8 fL (36.4-46.3); Red Blood Count 3.66 M/uL (4.70-6.10); White Blood Count 6.43 K/ul (4.8-10.8)
[2024-04-19 06:15] LABS: BUN Creatinine Ratio 21.9 (10-20); Creatinine Clr Calc Pharmacy 57.4 ml/min; Est GFR (African American) 76.2 ml/min; Est GFR (Non-African American) 65.8 ml/min; Potassium 3.2 mmol/L (3.5-5.1)
[2024-04-19] MEDS: LORATADINE 10 MG TAB PO SCH (08:20)
[2024-04-19] MEDS: predniSONE 20 MG TAB PO SCH (08:21)
[2024-04-19] MEDS: CYANOCOBALAMIN (B-12) 500 MCG TABLET PO SCH (10:55)
[2024-04-19] MEDS: POTASSIUM CHLORIDE CRTAB 20 MEQ TABCR PO SCH (10:55)
[2024-04-19] MEDS: CALCIUM GLUCONATE 1,000 MG/60 ML BAG IV SCH (10:56)
[2024-04-19] MEDS: HEPARIN SOD 5,000 UNIT/0.5 ML VIAL SQ SCH (11:12)
--- NOTE | 2024-04-19 18:18 | Hospitalist Progress Note ---
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, and most e.coli strains except ESBL e.coli) today rash (see below) started BEFORE augmentin was given cont andrews cont flomax appreciate urology assistance (2) Severe sepsis: Plan: 2nd to #1 resolved (3) Adrenal crisis: Plan: improved/resolved had been on stress doses of IV hydrocortisone, now back to PO prednisone today 20mg (4) BPH (benign prostatic hyperplasia): Plan: cont flomax (5) Parkinson disease: Plan: chronic, long-standing dx continue sinemet at home dosing (6) Sepsis associated hypotension: Plan: resolved s/p IV fluids and IV hydrocortisone cont midodrine (7) Acute kidney injury superimposed on CKD: Plan: peak Cr 2.5 at time of presentation improved with Cr of 1 today repeat BMP in am for stability (8) Elevated troponin I level: Plan: peak trop 47 this is NOT due to ACS but rather myocardial demand ischemia in the setting of severe sepsis (9) Hematuria: Plan: 2nd to recent cystoscopy, laser litho, stent placement as well as UTI improving / resolved (10) Inflammatory polyarthritis: Plan: on chronic prednisone 5mg daily on tapering stress doses of steroid - now on 20mg prednisone/day wean every 48 hours by 5mg increments (11) CKD (chronic kidney disease) stage 3, GFR 30-59 ml/min: Plan: baseline Cr about 1.3/1.4 (baseline CrCl 45-60 c/w stage 3a disease) bmp today with Cr 1 - better than baseline repeat BMP am (12) Kidney stone: Plan: recent R-sided kidney stone s/p laser lithotripsy 04/15 now with R-sided ureteral stent which is in good position on CT a/p no residual large stone fragments or other stones on CT (13) Acute metabolic encephalopathy: Plan: 2nd sepsis/UTI, hospital psychosis, discomfort from andrews, etc supportive care avoid benzos 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 increased such 10mg BID confusion and hallucinations improved with larger dose ammonia level wnl B12 low normal --> replace with 1000mcg of B12 daily (oral) (14) Hypocalcemia: Plan: uncertain etiology 25-OH vit D level was normal in 02/2024 ionized calcium is low give 2 amp calcium gluconate today as well as Tums 500mg TID replace low K as needed (which is likely due to low calcium) repeat lytes in am (15) Rash: Plan: contact derm vs allergic rxn to IV abx vs other favor latter -- steroids may have been masking a larger reaction was on IV ertapenem & IV daptomycin; these were d/c could have been either agent doubt augmentin as culprit -- rash started BEFORE augmentin was given doubt voltaren gel -- uses this chronically at home send to allergy post-d/c for consideration of testing claritin 10mg daily for rash/itching ongoing prednisone will help topical triamcinolone cream 0.1% TID in thin amounts to problem areas rash MUCH improved today Plan PT/OT both advising rehab -- pt agreeable social work assistance appreciated -- referrals made to several SNFs updated at bedside yesterday DVT proph: heparin 5000 TID Admission and Anticipated Discharge Date Admission Date: April 15, 2024 Subjective sitting in recliner chair during the visit hallucinations and confusion resolved unfortunately had multiple episodes of loose stool overnight that messed with his sleep he received loperamide and the diarrhea has improved denies any significant abd pain no nausea/emesis ate breakfast/lunch tele - NSR overnight Review of Systems Review of Systems: gen - no fevers skin - rash improving; no pruritis reported pulm - no dyspnea at rest GI - no abd pain Physical Exam Physical Exam: gen - awake, alert; laying in recliner chair; comfortable mouth - MMM neck - no JVD heart - RRR, s1 s2, 2/6 systolic murmur RUSB/LSB lungs - CTA b/l abd - soft NT ND BS+ ext - no edema, pulses 2+ b/l skin - erythematous rash on left arm, back, upper chest, around knees - marked improvement/fading (especially the left arm and back); rash near the knees - resolved psych - oriented to person/place Results & Data Results & Data Vital Signs (Past 12 Hours) Vital Signs Temp Pulse Pulse Resp BP Pulse Ox O2 Del Method 04/19/24 15:37 36.6 C 73 18 136/83 98 Room Air 04/19/24 15:13 79 04/19/24 11:33 36.8 C 68 18 122/75 97 Room Air 04/19/24 09:04 72 04/19/24 08:00 37.0 C 67 18 114/71 94 Room Air Laboratory Results Laboratory Results - last 24 hr 04/19/24 05:37 WBC 6.43 RBC 3.66 L Hgb 12.2 L Hct 35.5 L MCV 97.0 MCH 33.3 MCHC 34.4 RDW Std Deviation 47.8 H RDW Coeff of Capo 13.4 Plt Count 142 MPV 9.7 Sodium 143 Potassium 3.2 L Chloride 114 H Carbon Dioxide 22 Anion Gap 7 BUN 23 Creatinine 1.05 Est Cr Clr Drug Dosing 57.4 Est GFR ( Amer) 76.2 Est GFR (Non-Af Amer) 65.8 BUN/Creatinine Ratio 21.9 H Glucose 95 Calcium 7.0 L PG Care Time/CCT Total # of Minutes Spent Total Time Spent with Patient: Total time spent is greater than 50% in coordination of care (as documented) at patient's floor/unit and/or counseling patient: Coding Level of Care Code 96626 SUB INP/OBS CARE 3/50MIN Diagnoses Complicated UTI (urinary tract infection) N39.0 Severe sepsis A41.9; R65.20 Adrenal crisis E27.2 BPH (benign prostatic hyperplasia) N40.0 Parkinson disease G20 Sepsis associated hypotension A41.9; I95.9 Acute kidney injury superimposed on CKD N17.9; N18.9 Elevated troponin I level R79.89 Hematuria R31.0 Hematuria type: gross Inflammatory polyarthritis M06.4 CKD (chronic kidney disease) stage 3, GFR 30-59 ml/min N18.30 Kidney stone N20.0 Acute metabolic encephalopathy G93.41 Hypocalcemia E83.51 Rash R21 (9) Hematuria Hematuria type: gross Qualified Code(s): R31.0 - Gross hematuria
[2024-04-20 06:41] LABS: BUN Creatinine Ratio 19.4 (10-20); Calcium 7.1 mg/dl (8.6-10.3); Creatinine Clr Calc Pharmacy 64.5 ml/min; Est GFR (African American) 88.3 ml/min; Est GFR (Non-African American) 76.2 ml/min; Potassium 3.9 mmol/L (3.5-5.1)
[2024-04-20] MEDS: CALCIUM CARBONATE 500 MG CHEWABLE TAB PO SCH (12:10)
--- NOTE | 2024-04-20 14:02 | Hospitalist Progress Note ---
Date of Service April 20, 2024 Assessment & Plan (1) Complicated UTI (urinary tract infection): Plan: suspected UTI in the setting of recent urological surgery 04/15/24 (cystoscopy, laser lithotripsy, right ureteral stent placement) despite high suspicion for UTI his urine cx did not grow a specific pathogen had been on IV ertapenem (h/o ESBL E.coli) + daptomycin (previous h/o enterococcus & coag neg staph UTIs) - both d/c, changed to augmentin 04/18/24 (would cover enterococcus, [employer], and most e.coli strains except ESBL e.coli) augmentin likely making diarrhea worse change to amox 500mg TID rash (see below) started BEFORE augmentin was given cont andrews cont flomax appreciate urology assistance (2) Severe sepsis: Plan: 2nd to #1 resolved (3) Adrenal crisis: Plan: improved/resolved had been on stress doses of IV hydrocortisone, now back to PO prednisone 20mg today, give 10mg tomorrow, then resume 5mg (chronic dose) on 04/22 (4) BPH (benign prostatic hyperplasia): Plan: cont flomax cont andrews treat UTI (5) Parkinson disease: Plan: chronic, long-standing dx continue sinemet at home dosing (6) Sepsis associated hypotension: Plan: resolved s/p IV fluids and IV hydrocortisone cont midodrine (7) Acute kidney injury superimposed on CKD: Plan: peak Cr 2.5 at time of presentation resolved Cr normal again today (8) Elevated troponin I level: Plan: peak trop 47 this is NOT due to ACS but rather myocardial demand ischemia in the setting of severe sepsis (9) Hematuria: Plan: 2nd to recent cystoscopy, laser litho, stent placement as well as UTI resolved (10) Inflammatory polyarthritis: Plan: on chronic prednisone 5mg daily on tapering stress doses of steroid - now on 20mg prednisone/day wean to 10mg tomorrow (11) CKD (chronic kidney disease) stage 3, GFR 30-59 ml/min: Plan: baseline Cr about 1.3/1.4 (baseline CrCl 45-60 c/w stage 3a disease) bmp today with Cr 0.9 - better than baseline repeat BMP am (12) Kidney stone: Plan: recent R-sided kidney stone s/p laser lithotripsy 04/15 now with R-sided ureteral stent which is in good position on CT a/p no residual large stone fragments or other stones on CT (13) Acute metabolic encephalopathy: Plan: resolved 2nd sepsis/UTI, hospital psychosis, discomfort from andrews, etc 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 increased such 10mg BID with resolved confusion and hallucinations ammonia level wnl B12 low normal --> replace with 1000mcg of B12 daily (oral) (14) Hypocalcemia: Plan: uncertain etiology 25-OH vit D level was normal in 02/2024 ionized calcium was low yesterday - gave 2 amp calcium gluconate on 04/19 as well as Tums 500mg TID total calcium still low today - increase TUMS to 750mg TID and 1 amp of calcium gluconate repeat calcium, phos, and intact PTH later today stop phos supplementation replace low K as needed (which is likely due to low calcium) (15) Rash: Plan: contact derm vs allergic rxn to IV abx vs other favor latter -- steroids may have been masking a larger reaction was on IV ertapenem & IV daptomycin; these were d/c could have been either agent doubt augmentin as culprit -- rash started BEFORE augmentin was given doubt voltaren gel -- uses this chronically at home send to allergy post-d/c for consideration of testing stop claritin - rash is resolved (16) Diarrhea: Plan: c diff at admission neg repeat c diff due to copious abx exposure his CT a/p at time of admission showed small bowel enteritis - will try to order stool Biofire if c diff is negative - can use loperamide prn Plan PT/OT both advising rehab -- pt agreeable social work assistance appreciated -- referrals made to several SNFs updated by phone this evening DVT proph: heparin 5000 TID but change to lovenox daily for less sticks Admission and Anticipated Discharge Date Admission Date: April 15, 2024 Subjective main complaint is diarrhea multiple stools overnight only 1 stool since waking up this am despite the diarrhea no abd pain no nausea no emesis eating well rash resolved no pruritis Review of Systems Review of Systems: cv - no cp, no edema pulm - no dyspnea - hematuria resolved Physical Exam Physical Exam: gen - awake, alert; laying in recliner chair; comfortable appearing; looks good mouth - MMM neck - no JVD heart - RRR, s1 s2, 2/6 systolic murmur LSB lungs - CTA b/l abd - soft NT ND BS+ ext - no edema, pulses 2+ b/l skin - diffuse rash on back/arms/torso - resolved psych - oriented to person/place; no hallucinations or confusion Results & Data Results & Data Vital Signs (Past 12 Hours) Vital Signs Temp Pulse Pulse Resp BP Pulse Ox O2 Del Method 04/20/24 11:50 36.9 C 68 18 112/70 97 Room Air 04/20/24 08:27 70 04/20/24 07:49 36.7 C 74 18 152/89 H 96 Room Air 04/20/24 04:19 36.6 C 70 18 133/79 95 Room Air Laboratory Results Laboratory Results - last 24 hr 04/20/24 06:01 Sodium 140 Potassium 3.9 D Chloride 110 H Carbon Dioxide 23 Anion Gap 7 BUN 18 Creatinine 0.93 Est Cr Clr Drug Dosing 64.5 Est GFR ( Amer) 88.3 Est GFR (Non-Af Amer) 76.2 BUN/Creatinine Ratio 19.4 Glucose 93 Calcium 7.1 L PG Care Time/CCT Total # of Minutes Spent Total Time Spent with Patient: Total time spent is greater than 50% in coordination of care (as documented) at patient's floor/unit and/or counseling patient: Coding Level of Care Code 26598 SUB INP/OBS CARE 3/50MIN Diagnoses Complicated UTI (urinary tract infection) N39.0 Severe sepsis A41.9; R65.20 Adrenal crisis E27.2 BPH (benign prostatic hyperplasia) N40.0 Parkinson disease G20 Sepsis associated hypotension A41.9; I95.9 Acute kidney injury superimposed on CKD N17.9; N18.9 Elevated troponin I level R79.89 Hematuria R31.0 Hematuria type: gross Inflammatory polyarthritis M06.4 CKD (chronic kidney disease) stage 3, GFR 30-59 ml/min N18.30 Kidney stone N20.0 Acute metabolic encephalopathy G93.41 Hypocalcemia E83.51 Rash R21 Diarrhea R19.7 (9) Hematuria Hematuria type: gross Qualified Code(s): R31.0 - Gross hematuria
[2024-04-20] MEDS: CALCIUM GLUCONATE 1,000 MG/60 ML BAG IV STA (14:53)
[2024-04-20 18:01] LABS: Calcium 8.2 mg/dl (8.6-10.3); Phosphorus 3.3 mg/dl (2.5-4.9)
[2024-04-20 18:16] LABS: Thyroid Stimulating Hormone 1.029 uIu/ml (0.300-4.500)
[2024-04-20] MEDS: AMOXICILLIN 875 MG TAB PO SCH (20:38)
[2024-04-20 20:39] LABS: Adenovirus F 40/41 PCR Not Detected (NotDetected); Astrovirus PCR Not Detected (NotDetected); Campylobacter PCR Not Detected (NotDetected); Cryptosporidium PCR Not Detected (NotDetected); Cyclospora cayetanensis PCR Not Detected (NotDetected); Entamoeba histolytica PCR Not Detected (NotDetected); Enteroaggregative E.coli(EAEC) Not Detected (NotDetected); Enteropathogenic E.coli (EPEC) Not Detected (NotDetected); Enterotoxigenic E.coli (ETEC) Not Detected (NotDetected); Giardia lamblia PCR Not Detected (NotDetected); Norovirus GI/GII PCR Not Detected (NotDetected); Plesiomonas shigelloides PCR Not Detected (NotDetected); Rotavirus A PCR Not Detected (NotDetected); Salmonella PCR Not Detected (NotDetected); Sapovirus PCR Not Detected (NotDetected); Shiga-like Toxin E.coli (STEC) Not Detected (NotDetected); Shigella/Enteroinvasive E.coli Not Detected (NotDetected); Vibrio cholerae PCR Not Detected (NotDetected); Vibrio species PCR Not Detected (NotDetected); Yersinia enterocolitica PCR Not Detected (NotDetected)
[2024-04-20] MEDS: ENOXAPARIN INJ 40 MG/0.4 ML SYR SQ SCH (20:40)
[2024-04-21] MEDS: predniSONE 10 MG TABLET PO SCH (07:54)
[2024-04-21] MEDS: ADVANCED PROBIOTIC 625 MG CAPSULE PO SCH (07:54)
[2024-04-21 09:10] LABS: Mean Corpuscular Hemoglobin 33.4 pg (25.0-34.0); Mean Corpuscular Hgb Conc 34.2 g/dL (32.0-36.0); Mean Corpuscular Volume 97.7 fL (80.0-100.0); Mean Platelet Volume 9.6 fL (9.4-12.4); Platelet Count 155 K/uL (130-400); RDW Coefficient of Variation 13.1 % (11.5-14.5); RDW Standard Deviation 46.7 fL (36.4-46.3); Red Blood Count 3.89 M/uL (4.70-6.10); White Blood Count 7.64 K/ul (4.8-10.8)
[2024-04-21 09:34] LABS: BUN Creatinine Ratio 16.3 (10-20); Creatinine Clr Calc Pharmacy 58.1 ml/min; Est GFR (African American) 77.1 ml/min; Est GFR (Non-African American) 66.6 ml/min; Magnesium 1.5 mg/dl (1.7-2.4); Potassium 3.6 mmol/L (3.5-5.1)
[2024-04-21] MEDS: MAGNESIUM SULFATE / D5W 1 GM/100 ML BAG IV SCH (11:25)
--- NOTE | 2024-04-21 17:48 | Hospitalist Progress Note ---
Date of Service April 21, 2024 Assessment & Plan (1) Complicated UTI (urinary tract infection): Plan: suspected UTI in the setting of recent urological surgery 04/15/24 (cystoscopy, laser lithotripsy, right ureteral stent placement) despite high suspicion for UTI his urine cx did not grow a specific pathogen had been on IV ertapenem (h/o ESBL E.coli) + daptomycin (previous h/o enterococcus & coag neg staph UTIs) - both d/c, changed to augmentin 04/18/24 (would cover enterococcus, [employer], and most e.coli strains except ESBL e.coli) augmentin likely made his diarrhea worse changed to amoxicillin BID on 04/20/24 today is day #7 of IV/PO abx today rash (see below) started BEFORE augmentin was given cont andrews cont flomax appreciate urology assistance (2) Severe sepsis: Plan: 2nd to #1 resolved (3) Adrenal crisis: Plan: resolved had been on stress doses of IV hydrocortisone, now back to PO prednisone 10mg today, then resume 5mg daily tomorrow which is his chronic dose (4) BPH (benign prostatic hyperplasia): Plan: cont flomax cont andrews treat UTI (5) Parkinson disease: Plan: chronic, long-standing dx continue sinemet at home dosing PT, OT (6) Sepsis associated hypotension: Plan: resolved s/p IV fluids and IV hydrocortisone cont midodrine (7) Acute kidney injury superimposed on CKD: Plan: peak Cr 2.5 at time of presentation resolved Cr normal again today (8) Elevated troponin I level: Plan: peak trop 47 this is NOT due to ACS but rather myocardial demand ischemia in the setting of severe sepsis (9) Hematuria: Plan: 2nd to recent cystoscopy, laser litho, stent placement as well as UTI resolved (10) Inflammatory polyarthritis: Plan: on chronic prednisone 5mg daily on tapering stress doses of steroid - now on 10mg prednisone/day wean to 5mg tomorrow (11) CKD (chronic kidney disease) stage 3, GFR 30-59 ml/min: Plan: baseline Cr about 1.3/1.4 (baseline CrCl 45-60 c/w stage 3a disease) bmp today with Cr 1 - better than baseline repeat BMP am (12) Kidney stone: Plan: recent R-sided kidney stone s/p laser lithotripsy 04/15 now with R-sided ureteral stent which is in good position on CT a/p no residual large stone fragments or other stones on CT (13) Acute metabolic encephalopathy: Plan: resolved 2nd sepsis/UTI, hospital psychosis, discomfort from andrews, etc 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 had had low phos -- now normal -- phos supplement stopped replace low mag repeat bmp/calcium am (15) Rash: Plan: contact derm vs allergic rxn to IV abx vs other favor latter -- steroids may have been masking a larger reaction was on IV ertapenem & IV daptomycin; these were d/c could have been either agent doubt augmentin as culprit -- rash started BEFORE augmentin was given doubt voltaren gel -- uses this chronically at home send to allergy post-d/c for consideration of testing stop triamcinolone cream (16) Diarrhea: Plan: c diff at admission neg repeat c diff again negative stool biofire negative his CT a/p at time of admission showed small bowel enteritis findings - perhaps this was all just abx-associated diarrhea either way it is improving loperamide prn (17) Hypomagnesemia: Plan: 2nd diarrhea replace with mag sulfate IV 3gm repeat level am (18) Swelling of left half of scrotum: Plan: chronic, but worse recently feels like a hydrocele but can't exclude left-sided inguinal hernia (CT a/p at admission showed Left-sided inguinal hernia) will obtain u/s no testicular tumor/mass not painful this is NOT scrotal edema from anasarca, etc Plan PT/OT both advising rehab -- pt agreeable initially, but now he & his are leaning towards wanting home with home PT/OT?? referrals made to several SNFs updated at bedside today DVT proph: lovenox daily Admission and Anticipated Discharge Date Admission Date: April 15, 2024 Subjective diarrhea improved today tolerating diet no nausea no emesis rash fully resolved at bedside she asks if his ureteral stent can be removed this week it was to be removed in the urology office this Monday he worries about his scrotal swelling on the left has been present for a long time, but recently worse no scrotal pain tele wnl Review of Systems Review of Systems: cv - no chest pain pulm - no dyspnea GI - no abd pain or N/V Physical Exam Physical Exam: gen - awake, alert; sitting in chair; NAD mouth - MMM neck - no JVD heart - RRR, s1 s2, 2/6 systolic murmur LSB lungs - CTA b/l abd - soft NT ND BS+ ext - no edema, pulses 2+ b/l skin - no rash - b/l testicles without mass; ?hydrocele - moderate-large - on left vs hernia; favor former; buried penis; catheter in place Results & Data Results & Data Vital Signs (Past 12 Hours) Vital Signs Temp Pulse Pulse Resp BP BP Pulse Ox 04/21/24 16:02 36.7 C 63 18 108/70 96 04/21/24 14:40 69 04/21/24 11:48 36.6 C 66 18 129/78 98 04/21/24 10:16 04/21/24 07:16 36.7 C 68 18 127/69 93 04/21/24 07:10 70 04/21/24 06:34 127/69 O2 Del Method 04/21/24 16:02 Room Air 04/21/24 14:40 04/21/24 11:48 Room Air 04/21/24 10:16 Room Air 04/21/24 07:16 Room Air 04/21/24 07:10 04/21/24 06:34 Laboratory Results Laboratory Results - last 24 hr 04/20/24 04/20/24 04/21/24 17:18 18:15 08:55 WBC 7.64 RBC 3.89 L Hgb 13.0 L Hct 38.0 L MCV 97.7 MCH 33.4 MCHC 34.2 RDW Std Deviation 46.7 H RDW Coeff of Capo 13.1 Plt Count 155 MPV 9.6 Sodium 138 Potassium 3.6 Chloride 106 Carbon Dioxide 25 Anion Gap 7 BUN 17 Creatinine 1.04 Est Cr Clr Drug Dosing 58.1 Est GFR ( Amer) 77.1 Est GFR (Non-Af Amer) 66.6 BUN/Creatinine Ratio 16.3 Glucose 135 H Calcium 8.2 L 8.0 L Phosphorus 3.3 Magnesium 1.5 L TSH 1.029 PTH Intact 109.5 H Stl C. cayetanensis PCR Not Detected Stool Rotavirus A PCR Not Detected Stl Adenov F 40/41 PCR Not Detected Stool Astrovirus (PCR) Not Detected Stool Campylobacter PCR Not Detected Stl C. diff Tox B Gene Negative Cdiff Gene Stool Cryptosporidium PCR Not Detected Stl E.coli Shiga Tox PCR Not Detected Stl Enterotoxigenic E PCR Not Detected Stool EPEC (PCR) Not Detected Stool EAEC (PCR) Not Detected Stl E. histolytica PCR Not Detected Stool Giardia Lamblia PCR Not Detected Stool Salmonella PCR Not Detected Stool Sapovirus (PCR) Not Detected Stl P. shigelloides PCR Not Detected Stl Shigella/EIEC PCR Not Detected St Y.enterocolitica PCR Not Detected Stool Vibrio (PCR) Not Detected Stl Vibrio cholerae PCR Not Detected Stl Norovirus GI/GII PCR Not Detected PG Care Time/CCT Total # of Minutes Spent Total Time Spent with Patient: Total time spent is greater than 50% in coordination of care (as documented) at patient's floor/unit and/or counseling patient: Coding Level of Care Code 40510 SUB INP/OBS CARE 3/50MIN Diagnoses Complicated UTI (urinary tract infection) N39.0 Severe sepsis A41.9; R65.20 Adrenal crisis E27.2 BPH (benign prostatic hyperplasia) N40.0 Parkinson disease G20 Sepsis associated hypotension A41.9; I95.9 Acute kidney injury superimposed on CKD N17.9; N18.9 Elevated troponin I level R79.89 Hematuria R31.0 Hematuria type: gross Inflammatory polyarthritis M06.4 CKD (chronic kidney disease) stage 3, GFR 30-59 ml/min N18.30 Kidney stone N20.0 Acute metabolic encephalopathy G93.41 Hypocalcemia E83.51 Rash R21 Diarrhea R19.7 Hypomagnesemia E83.42 Swelling of left half of scrotum N50.89 (9) Hematuria Hematuria type: gross Qualified Code(s): R31.0 - Gross hematuria
[2024-04-22 06:33] LABS: BUN Creatinine Ratio 17.9 (10-20); Calcium 8.5 mg/dl (8.6-10.3); Creatinine Clr Calc Pharmacy 57.3 ml/min; Est GFR (African American) 75.4 ml/min; Magnesium 1.8 mg/dl (1.7-2.4)
--- NOTE | 2024-04-22 07:37 | Ultrasound Report ---
TESTICULAR ULTRASOUND HISTORY: L sided hydrocele vs hernia vs other COMPARISON: None. FINDINGS: Right testis: 32 x 25 x 20 mm. There are no intratesticular masses. Normal color flow. Small hydrocel e. The epididymis is unremarkable. Left testis: 35 x 33 x 33 mm. There is an 11 mm intratesticular cyst. There are no intratesticular so lid masses. Normal color flow. Moderate hydrocele. The epididymis is unremarkable. Fat-containing lef t inguinal hernia. Small left varicocele. IMPRESSION: 1. 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 This favors a benign lesion. Follow-up can be performed to ensure s tability. 2. Normal right testis. 3. Small right and moderate left hydroceles. 4. Small left-sided varicocele. 5. Fat-containing left inguinal hernia. ACT 112: Negative or not required by law. Electronically signed by: Jean-Paul Fall M.D. 04/22/2024 7:34 AM
[2024-04-22] MEDS: predniSONE 5 MG TAB PO SCH (09:37)
--- NOTE | 2024-04-22 11:50 | Urology Progress Note ---
Date of Service April 22, 2024 Assessment & Plan (1) Sepsis associated hypotension: (2) Acute UTI (urinary tract infection): (3) Urinary retention: Plan: 84 yo/M status post right ureteroscopy for stone treatment and urethral dilation on 04/15/[address] Abdullahi admitted for UTI/sepsis with hypotension, urinary retention, and hematuria. He is afebrile and hemodynamically stable. Labs today show a normal renal function. Urine and blood cultures 04/15 were negative. Ponce intact and draining clear yellow urine. Recommend maintaining the ureteral stent and Ponce catheter for another week given the recent concerns of infection. Will arrange removal in the urology clinic. Pt was agreeable. We also reviewed his scrotal ultrasound findings showing the left-sided inguinal hernia and hydrocele. Will arrange outpatient follow-up with urology service. Urology will sign-off. Please call with any further questions or concerns. Plan reviewed with Dr. Abdullahi. Admission and Anticipated Discharge Date Admission Date: April 15, 2024 Subjective Pt seen at bedside today Awake, sitting in bedside chair on arrival No acute distress Ponce draining yellow urine Tolerating the stent with minimal bother Report left sided scrotal swelling No fevers Review of Systems Constitutional: as per Subjective / HPI Genitourinary: + as per Subjective / HPI Physical Exam Constitutional: no acute distress Respiratory: no respiratory distress and no labored breathing Neurologic: awake Psychiatric: A+Ox3, euthymic affect Genitourinary: Ponce intact. Left sided scrotal swelling. Results & Data Vital Signs (Past 12 Hours) Vital Signs Temp Pulse Pulse Resp BP Pulse Ox O2 Del Method 04/22/24 11:04 37.0 C 69 16 106/66 95 Room Air 04/22/24 07:38 36.6 C 67 17 116/73 94 Room Air 04/22/24 02:50 36.5 C 67 19 149/85 H 97 Room Air 04/21/24 23:51 60 PG Care Time/CCT Total # of Minutes Spent Total Time Spent with Patient: Total time spent is greater than 50% in coordination of care (as documented) at patient's floor/unit and/or counseling patient: Coding Level of Care Code 54642 SUB INP/OBS CARE 2/35MIN Diagnoses Sepsis associated hypotension A41.9; I95.9 Acute UTI (urinary tract infection) N39.0 Urinary retention R33.9
[2024-04-22] MEDS: MIDODRINE HCL 2.5 MG TAB PO STA (17:37)
--- NOTE | 2024-04-22 18:00 | Hospitalist Progress Note ---
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, and most e.coli strains except ESBL e.coli) augmentin likely made his diarrhea worse changed to amoxicillin BID on 04/20/24 today is day #8 of IV/PO abx plan 10 days of Rx then stop all abx rash (see below) started BEFORE augmentin was given cont andrews cont flomax appreciate urology assistance (2) Severe sepsis: Plan: 2nd to #1 resolved (3) Adrenal crisis: Plan: resolved had been on stress doses of IV hydrocortisone, now back to PO prednisone resume his usual/chronic 5mg daily dose today (4) BPH (benign prostatic hyperplasia): Plan: cont flomax cont andrews 1 more week then voiding trial at that time treat UTI (5) Parkinson disease: Plan: chronic, long-standing dx continue sinemet at home dosing PT, OT with orthostasis - increase midodrine to 7.5mg TID (6) Sepsis associated hypotension: Plan: resolved s/p IV fluids and IV hydrocortisone cont midodrine with dose adjustment to 7.5mg TID today (7) Acute kidney injury superimposed on CKD: Plan: peak Cr 2.5 at time of presentation resolved Cr normal again today @ 1 (8) Elevated troponin I level: Plan: peak trop 47 this is NOT due to ACS but rather myocardial demand ischemia in the setting of severe sepsis (9) Hematuria: Plan: 2nd to recent cystoscopy, laser litho, stent placement as well as UTI resolved (10) Inflammatory polyarthritis: Plan: on chronic prednisone 5mg daily was on tapering stress doses of steroid - now back to chronic daily dose of 5mg/day (11) CKD (chronic kidney disease) stage 3, GFR 30-59 ml/min: Plan: baseline Cr about 1.3/1.4 (baseline CrCl 45-60 c/w stage 3a disease) bmp today again with Cr 1 - better than baseline (12) Kidney stone: Plan: recent R-sided kidney stone s/p laser lithotripsy 04/15 now with R-sided ureteral stent which is in good position on CT a/p no residual large stone fragments or other stones on CT (13) Acute metabolic encephalopathy: Plan: resolved 2nd sepsis/UTI, hospital psychosis, discomfort from andrews, etc 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 had had low phos -- now normal -- phos supplement stopped replaced low mag can stop calcium carbonate supplementation (15) Rash: Plan: contact derm vs allergic rxn to IV abx vs other favor latter -- steroids may have been masking a larger reaction was on IV ertapenem & IV daptomycin; these were d/c could have been either agent doubt augmentin as culprit -- rash started BEFORE augmentin was given doubt voltaren gel -- uses this chronically at home send to allergy post-d/c for consideration of testing stop triamcinolone cream (16) Diarrhea: Plan: c diff at admission neg repeat c diff again negative stool biofire negative his CT a/p at time of admission showed small bowel enteritis findings - perhaps this was all just abx-associated diarrhea either way it is improving / resolving loperamide prn (17) Hypomagnesemia: Plan: 2nd diarrhea replaced resolved (18) Swelling of left half of scrotum: Plan: chronic, but worse recently 2nd to moderate sized hydrocele + left-sided inguinal hernia - no Rx needed at this time; reassurance given no testicular tumor/mass on u/s Plan PT/OT both advising rehab -- referral to [facility] pending updated at bedside yesterday, 04/21 left voicemail message for his today, 04/22 DVT proph: lovenox daily can stop tele if BPs remain stable and tele is stable overnight Admission and Anticipated Discharge Date Admission Date: April 15, 2024 Subjective tele overnight wnl reported a headache - frontal - this afternoon he has suffered from mild, intermittent headaches for many years these are typically relieved with tylenol he had a low BP this afternoon when sitting upright in the recliner increased his midodrine to 7.5mg and his repeat BPs were stable/normal eating well pt's visited [facility] today -- he is agreeable to going there for rehab urology came by - he is aware they are advising 1 more week of andrews catheter and 1 more week of the ureteral stent being in place Review of Systems Review of Systems: gen - no fevers or chills cv - no cp pulm - no dyspnea GI - no abd pain or N/V Physical Exam Physical Exam: gen - awake, alert; sitting upright in chair; NAD mouth - MMM neck - no JVD heart - RRR, s1 s2, 2/6 systolic murmur LSB lungs - CTA b/l abd - soft NT ND BS+ ext - no edema, pulses 2+ b/l skin - no rash - FULLY RESOLVED Results & Data Results & Data Vital Signs (Past 12 Hours) Vital Signs Temp Pulse Resp BP Pulse Ox O2 Del Method 04/22/24 15:38 36.7 C 61 17 88/57 L 94 Room Air 04/22/24 11:04 37.0 C 69 16 106/66 95 Room Air 04/22/24 07:38 36.6 C 67 17 116/73 94 Room Air Laboratory Results Laboratory Results - last 24 hr 04/22/24 05:55 Sodium 137 Potassium 4.0 Chloride 105 Carbon Dioxide 25 Anion Gap 7 BUN 19 Creatinine 1.06 Est Cr Clr Drug Dosing 57.3 Est GFR ( Amer) 75.4 Est GFR (Non-Af Amer) 65.0 BUN/Creatinine Ratio 17.9 Glucose 89 Calcium 8.5 L Magnesium 1.8 Diagnostic Findings Scrotum Ultrasound 04/21/24 14:39 TESTICULAR ULTRASOUND HISTORY: L sided hydrocele vs hernia vs other COMPARISON: None. FINDINGS: Right testis: 32 x 25 x 20 mm. There are no intratesticular masses. Normal color flow. Small hydrocele. The epididymis is unremarkable. Left testis: 35 x 33 x 33 mm. There is an 11 mm intratesticular cyst. There are no intratesticular solid masses. Normal color flow. Moderate hydrocele. The epididymis is unremarkable. Fat-containing left inguinal hernia. Small left varicocele. IMPRESSION: 1. 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 This favors a benign lesion. Follow-up can be performed to ensure stability. 2. Normal right testis. 3. Small right and moderate left hydroceles. 4. Small left-sided varicocele. 5. Fat-containing left inguinal hernia. ACT 112: Negative or not required by law. Electronically signed by: Jean-Paul Fall M.D. 04/22/2024 7:34 AM PG Care Time/CCT Total # of Minutes Spent Total Time Spent with Patient: Total time spent is greater than 50% in coordination of care (as documented) at patient's floor/unit and/or counseling patient: Coding Level of Care Code 95268 SUB INP/OBS CARE 2/35MIN Diagnoses Complicated UTI (urinary tract infection) N39.0 Severe sepsis A41.9; R65.20 Adrenal crisis E27.2 BPH (benign prostatic hyperplasia) N40.0 Parkinson disease G20 Sepsis associated hypotension A41.9; I95.9 Acute kidney injury superimposed on CKD N17.9; N18.9 Elevated troponin I level R79.89 Hematuria R31.0 Hematuria type: gross Inflammatory polyarthritis M06.4 CKD (chronic kidney disease) stage 3, GFR 30-59 ml/min N18.30 Kidney stone N20.0 Acute metabolic encephalopathy G93.41 Hypocalcemia E83.51 Rash R21 Diarrhea R19.7 Hypomagnesemia E83.42 Swelling of left half of scrotum N50.89 (9) Hematuria Hematuria type: gross Qualified Code(s): R31.0 - Gross hematuria
[2024-04-23] MEDS: MIDODRINE HCL 2.5 MG TAB PO SCH (10:19)
--- NOTE | 2024-04-23 18:34 | Hospitalist Progress Note ---
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, and most e.coli strains except ESBL e.coli) augmentin likely made his diarrhea worse changed to amoxicillin BID on 04/20/24 today is day #9 of IV/PO abx plan 10 days of Rx then stop all abx rash (see below) started BEFORE augmentin was given cont andrews cont flomax appreciate urology assistance (2) Severe sepsis: Plan: 2nd to #1 resolved (3) Adrenal crisis: Plan: resolved had been on stress doses of IV hydrocortisone, now back to PO prednisone resumed his usual/chronic 5mg daily dose (4) BPH (benign prostatic hyperplasia): Plan: cont flomax cont andrews 1 more week then voiding trial at that time treat UTI (5) Parkinson disease: Plan: chronic, long-standing dx continue sinemet at home dosing PT, OT with orthostasis - increased midodrine to 7.5mg TID (6) Sepsis associated hypotension: Plan: resolved s/p IV fluids and IV hydrocortisone cont midodrine with dose adjustment to 7.5mg TID (7) Acute kidney injury superimposed on CKD: Plan: peak Cr 2.5 at time of presentation resolved Cr normalized, 1.06 today (8) Elevated troponin I level: Plan: peak trop 47 this is NOT due to ACS but rather myocardial demand ischemia in the setting of severe sepsis (9) Hematuria: Plan: 2nd to recent cystoscopy, laser litho, stent placement as well as UTI resolved (10) Inflammatory polyarthritis: Plan: on chronic prednisone 5mg daily was on tapering stress doses of steroid - now back to chronic daily dose of 5mg/day (11) CKD (chronic kidney disease) stage 3, GFR 30-59 ml/min: Plan: baseline Cr about 1.3/1.4 (baseline CrCl 45-60 c/w stage 3a disease) now at baseline (12) Kidney stone: Plan: recent R-sided kidney stone s/p laser lithotripsy 04/15 now with R-sided ureteral stent which is in good position on CT a/p no residual large stone fragments or other stones on CT (13) Acute metabolic encephalopathy: Plan: resolved 2nd sepsis/UTI, hospital psychosis, discomfort from andrews, etc 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 had had low phos -- now normal -- phos supplement stopped replaced low mag can stop calcium carbonate supplementation (15) Rash: Plan: contact derm vs allergic rxn to IV abx vs other favor latter -- steroids may have been masking a larger reaction was on IV ertapenem & IV daptomycin; these were d/c could have been either agent doubt augmentin as culprit -- rash started BEFORE augmentin was given doubt voltaren gel -- uses this chronically at home send to allergy post-d/c for consideration of testing stop triamcinolone cream (16) Diarrhea: Plan: c diff at admission neg repeat c diff again negative stool biofire negative his CT a/p at time of admission showed small bowel enteritis findings - perhaps this was all just abx-associated diarrhea either way it is improving / resolving loperamide prn (17) Hypomagnesemia: Plan: 2nd diarrhea replaced resolved (18) Swelling of left half of scrotum: Plan: chronic, but worse recently 2nd to moderate sized hydrocele + left-sided inguinal hernia - no Rx needed at this time; reassurance given no testicular tumor/mass on u/s Plan DVT proph: lovenox daily plan for discharge to [facility], insurance Auth pending, discussed with care coordination Admission and Anticipated Discharge Date Admission Date: April 15, 2024 Subjective feels better, good appetite, no abdominal/urinary pain BP has been normal Physical Exam 2 Physical Exam: PHYSICAL EXAMINATION Last 24h vital signs reviewed, see documentation in flowsheet General: comfortable appearing, no distress, sitting up in chair eating breakfast HEENT: Normocephalic, atraumatic, pupils round and equal, sclerae anicteric, no conjunctival injection, moist mucus membranes Lungs: Normal respiratory effort. Clear to auscultation bilaterally. No RRW Heart: Regular rate and rhythm, no murmurs. No JVD Abdomen: Soft, nontender, nondistended. Bowel sounds present. Extremities: Warm, dry, well-perfused. No extremity edema. Neuro: Alert and oriented x 4, face symmetric, moves 4 extremities well Psych: Normal affect and behavior Results & Data Results & Data Vital Signs (Past 12 Hours) Vital Signs Temp Pulse Resp BP BP Pulse Ox O2 Del Method 04/23/24 16:09 36.2 C L 63 18 109/66 95 Room Air 04/23/24 11:02 36.7 C 67 16 101/64 96 Room Air 04/23/24 07:30 Room Air 04/23/24 07:24 36.9 C 63 18 151/87 H 98 Room Air Laboratory Results 04/21/24 08:55 04/22/24 05:55 PG Care Time/CCT Total # of Minutes Spent Total Time Spent with Patient: Total time spent is greater than 50% in coordination of care (as documented) at patient's floor/unit and/or counseling patient: Coding Level of Care Code 43769 SUB INP/OBS CARE 2/35MIN Diagnoses Complicated UTI (urinary tract infection) N39.0 Severe sepsis A41.9; R65.20 Adrenal crisis E27.2 BPH (benign prostatic hyperplasia) N40.0 Parkinson disease G20 Sepsis associated hypotension A41.9; I95.9 Acute kidney injury superimposed on CKD N17.9; N18.9 Elevated troponin I level R79.89 Hematuria R31.0 Hematuria type: gross Inflammatory polyarthritis M06.4 CKD (chronic kidney disease) stage 3, GFR 30-59 ml/min N18.30 Kidney stone N20.0 Acute metabolic encephalopathy G93.41 Hypocalcemia E83.51 Rash R21 Diarrhea R19.7 Hypomagnesemia E83.42 Swelling of left half of scrotum N50.89 (9) Hematuria Hematuria type: gross Qualified Code(s): R31.0 - Gross hematuria
--- NOTE | 2024-04-24 17:09 | Hospitalist Progress Note ---
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, and most e.coli strains except ESBL e.coli) augmentin likely made his diarrhea worse changed to amoxicillin BID on 04/20/24 today is day #10/10 of IV/PO abx rash (see below) started BEFORE augmentin was given cont andrews cont flomax appreciate urology assistance - they will arrange office follow-up in about a week for stent removal and voiding trial (2) Severe sepsis: Plan: 2nd to #1 resolved (3) Adrenal crisis: Plan: resolved had been on stress doses of IV hydrocortisone, now back to PO prednisone resumed his usual/chronic 5mg daily dose (4) BPH (benign prostatic hyperplasia): Plan: cont flomax cont andresw 1 more week then voiding trial at that time treat UTI (5) Parkinson disease: Plan: chronic, long-standing dx continue sinemet at home dosing PT, OT with orthostasis - increased midodrine to 7.5mg TID (6) Sepsis associated hypotension: Plan: resolved s/p IV fluids and IV hydrocortisone cont midodrine with dose adjustment to 7.5mg TID (7) Acute kidney injury superimposed on CKD: Plan: peak Cr 2.5 at time of presentation resolved Cr normalized to his baseline of 1 (8) Elevated troponin I level: Plan: peak trop 47 this is NOT due to ACS but rather myocardial demand ischemia in the setting of severe sepsis (9) Hematuria: Plan: 2nd to recent cystoscopy, laser litho, stent placement as well as UTI resolved (10) Inflammatory polyarthritis: Plan: on chronic prednisone 5mg daily was on tapering stress doses of steroid - now back to chronic daily dose of 5mg/day (11) CKD (chronic kidney disease) stage 3, GFR 30-59 ml/min: Plan: baseline Cr about 1.3/1.4 (baseline CrCl 45-60 c/w stage 3a disease) now at baseline (12) Kidney stone: Plan: recent R-sided kidney stone s/p laser lithotripsy 04/15 now with R-sided ureteral stent which is in good position on CT a/p no residual large stone fragments or other stones on CT (13) Acute metabolic encephalopathy: Plan: resolved 2nd sepsis/UTI, hospital psychosis, discomfort from andrews, etc 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 had had low phos -- now normal -- phos supplement stopped replaced low mag most recent calcium 8.5 (15) Rash: Plan: contact derm vs allergic rxn to IV abx vs other favor latter -- steroids may have been masking a larger reaction was on IV ertapenem & IV daptomycin; these were d/c could have been either agent doubt augmentin as culprit -- rash started BEFORE augmentin was given doubt voltaren gel -- uses this chronically at home send to allergy post-d/c for consideration of testing stop triamcinolone cream (16) Diarrhea: Plan: c diff at admission neg repeat c diff again negative stool biofire negative his CT a/p at time of admission showed small bowel enteritis findings - perhaps this was all just abx-associated diarrhea either way it is improving / resolving loperamide prn (17) Hypomagnesemia: Plan: 2nd diarrhea replaced resolved (18) Swelling of left half of scrotum: Plan: chronic, but worse recently 2nd to moderate sized hydrocele + left-sided inguinal hernia - no Rx needed at this time; reassurance given no testicular tumor/mass on u/s Plan DVT proph: lovenox daily plan for discharge to [facility], insurance Auth pending, discussed with care coordination Admission and Anticipated Discharge Date Admission Date: April 15, 2024 Sha Silva is doing fine he is sitting up eating lunch with his . He is not having any abdominal back or urinary pain, no shortness of breath no chest pain, his appetite is good feels like his Parkinson symptoms are at baseline Physical Exam Physical Exam: PHYSICAL EXAMINATION Last 24h vital signs reviewed, see documentation in flowsheet General: sitting up in the chair eating lunch HEENT: Normocephalic, atraumatic, pupils round and equal, sclerae anicteric, no conjunctival injection, moist mucus membranes Lungs: Normal respiratory effort. Clear to auscultation bilaterally. No RRW Heart: Regular rate and rhythm, no murmurs. No JVD Abdomen: Soft, nontender, nondistended. Bowel sounds present. Extremities: Warm, dry, well-perfused. No extremity edema. Neuro: Alert and oriented x 4, face symmetric, masked facies, moves 4 extremities well, bilateral upper extremity rigidity and cogwheeling Psych: Normal affect and behavior Results & Data Results & Data Vital Signs (Past 12 Hours) Vital Signs Temp Pulse Resp BP BP Pulse Ox O2 Del Method 04/24/24 15:24 36.4 C L 79 18 91/56 L 94 Room Air 04/24/24 06:54 36.7 C 62 16 127/75 96 Room Air PG Care Time/CCT Total # of Minutes Spent Total Time Spent with Patient: Total time spent is greater than 50% in coordination of care (as documented) at patient's floor/unit and/or counseling patient: Coding Level of Care Code 98777 SUB INP/OBS CARE 09/28MIN Diagnoses Complicated UTI (urinary tract infection) N39.0 Severe sepsis A41.9; R65.20 Adrenal crisis E27.2 BPH (benign prostatic hyperplasia) N40.0 Parkinson disease G20 Sepsis associated hypotension A41.9; I95.9 Acute kidney injury superimposed on CKD N17.9; N18.9 Elevated troponin I level R79.89 Hematuria R31.0 Hematuria type: gross Inflammatory polyarthritis M06.4 CKD (chronic kidney disease) stage 3, GFR 30-59 ml/min N18.30 Kidney stone N20.0 Acute metabolic encephalopathy G93.41 Hypocalcemia E83.51 Rash R21 Diarrhea R19.7 Hypomagnesemia E83.42 Swelling of left half of scrotum N50.89 (9) Hematuria Hematuria type: gross Qualified Code(s): R31.0 - Gross hematuria
--- NOTE | 2024-04-25 17:00 | Hospitalist Progress Note ---
Date of Service April 25, 2024 Assessment & Plan (1) Complicated UTI (urinary tract infection): Plan: suspected UTI in the setting of recent urological surgery 04/15/24 (cystoscopy, laser lithotripsy, right ureteral stent placement) despite high suspicion for UTI his urine culture did not grow a specific pathogen had been on IV ertapenem (h/o ESBL E.coli) + daptomycin (previous h/o enterococcus & coag neg staph UTIs) - both stopped and changed to augmentin 04/18, then amoxicillin 04/20 (would cover enterococcus, SPECTROGRAPH OPERATOR, and most e.coli strains except ESBL e.coli) completed 10 days total of IV/p.o. antibiotics on 04/24 cont andrews cont flomax appreciate urology assistance - they will arrange office follow-up in about a week for stent removal and voiding trial (2) Severe sepsis: Plan: 2nd to #1 resolved (3) Adrenal crisis: Plan: resolved early in hospitalization was on stress doses of IV hydrocortisone, now back to PO prednisone at his usual home dose (4) BPH (benign prostatic hyperplasia): Plan: cont flomax cont andrews 1 more week then voiding trial at that time treat UTI (5) Parkinson disease: Plan: chronic, long-standing dx continue sinemet at home dosing PT, OT with orthostasis - increased midodrine to 7.5mg TID this admission (6) Sepsis associated hypotension: Plan: resolved s/p IV fluids and IV hydrocortisone cont midodrine with dose adjustment to 7.5mg TID (7) Acute kidney injury superimposed on CKD: Plan: peak Cr 2.5 at time of presentation resolved Cr normalized to his baseline of 1 (8) Elevated troponin I level: Plan: peak trop 47 this is NOT due to ACS but rather myocardial demand ischemia in the setting of severe sepsis (9) Hematuria: Plan: 2nd to recent cystoscopy, laser litho, stent placement as well as UTI resolved (10) Inflammatory polyarthritis: Plan: on chronic prednisone 5mg daily (11) CKD (chronic kidney disease) stage 3, GFR 30-59 ml/min: Plan: baseline Cr about 1.3/1.4 (baseline CrCl 45-60 c/w stage 3a disease) now at baseline (12) Kidney stone: Plan: recent R-sided kidney stone s/p laser lithotripsy 8/12 now with R-sided ureteral stent which is in good position on CT a/p no residual large stone fragments or other stones on CT (13) Acute metabolic encephalopathy: Plan: resolved 2nd sepsis/UTI, hospital psychosis, discomfort from andrews, etc 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 had had low phos -- now normal -- phos supplement stopped replaced low mag most recent calcium 8.5 uncertain etiology but resolved (15) Rash: Plan: contact derm vs allergic rxn to IV abx vs other favor latter -- steroids may have been masking a larger reaction was on IV ertapenem & IV daptomycin; these were d/c could have been either agent doubt augmentin as culprit -- rash started BEFORE augmentin was given doubt voltaren gel -- uses this chronically at home send to allergy post-d/c for consideration of testing rash resolved (16) Diarrhea: Plan: c diff at admission neg, repeat c diff again negative, stool biofire negative his CT a/p at time of admission showed small bowel enteritis findings - perhaps this was all just abx-associated diarrhea - resolved (17) Hypomagnesemia: Plan: 2nd diarrhea replaced resolved (18) Swelling of left half of scrotum: Plan: chronic, but worse recently 2nd to moderate sized hydrocele + left-sided inguinal hernia - no Rx needed at this time; reassurance given no testicular tumor/mass on u/s Plan DVT proph: lovenox daily plan for discharge to [facility], insurance Auth pending, discussed with care coordination - no changes 04/25 Admission and Anticipated Discharge Date Admission Date: April 15, 2024 Subjective he reports rash is basically resolved, he is having some lightheadedness while sitting related to orthostatic hypotension but it is manageable, he has been sitting in the chair throughout the morning no urinary pain or pelvic pain Physical Exam 2 Physical Exam: PHYSICAL EXAMINATION Last 24h vital signs reviewed, see documentation in flowsheet General: again sitting in the chair HEENT: Normocephalic, atraumatic, pupils round and equal, sclerae anicteric, no conjunctival injection, moist mucus membranes Lungs: Normal respiratory effort. Clear to auscultation bilaterally. No RRW Heart: Regular rate and rhythm, no murmurs. No JVD Abdomen: Soft, nontender, nondistended. Bowel sounds present. Extremities: Warm, dry, well-perfused. No extremity edema. Neuro: Alert and oriented x 4, face symmetric, masked facies, moves 4 extremities well, bilateral upper extremity rigidity and cogwheeling skin: No longer erythematous Psych: Normal affect and behavior Results & Data Results & Data Vital Signs (Past 12 Hours) Vital Signs Temp Pulse Resp BP Pulse Ox O2 Del Method 04/25/24 15:47 36.4 C L 60 17 90/57 L 94 Room Air 04/25/24 08:12 36.4 C L 62 16 131/83 97 Room Air PG Care Time/CCT Total # of Minutes Spent Total Time Spent with Patient: Total time spent is greater than 50% in coordination of care (as documented) at patient's floor/unit and/or counseling patient: Coding Level of Care Code 34950 SUB INP/OBS CARE 09/28MIN Diagnoses Complicated UTI (urinary tract infection) N39.0 Severe sepsis A41.9; R65.20 Adrenal crisis E27.2 BPH (benign prostatic hyperplasia) N40.0 Parkinson disease G20 Sepsis associated hypotension A41.9; I95.9 Acute kidney injury superimposed on CKD N17.9; N18.9 Elevated troponin I level R79.89 Hematuria R31.0 Hematuria type: gross Inflammatory polyarthritis M06.4 CKD (chronic kidney disease) stage 3, GFR 30-59 ml/min N18.30 Kidney stone N20.0 Acute metabolic encephalopathy G93.41 Hypocalcemia E83.51 Rash R21 Diarrhea R19.7 Hypomagnesemia E83.42 Swelling of left half of scrotum N50.89 (9) Hematuria Hematuria type: gross Qualified Code(s): R31.0 - Gross hematuria
[2024-04-25 21:04] VITALS: TEMP 97.9
[2024-04-26 12:36] VITALS: BP 124/80; PULSE 64; RESP 16; O2SAT 98
--- NOTE | 2024-04-26 16:30 | Discharge Summary ---
Discharge Summary Date of Service April 26, 2024 Principal Dx & Hospital Course #1 = Principal Diagnosis (1) Complicated UTI (urinary tract infection): 84 y/o admitted with hypotension, related to sepsis from UTI and/or adrenal crisis suspected UTI in the setting of recent urological surgery 04/15/24 (cystoscopy, laser lithotripsy, right ureteral stent placement) despite high suspicion for UTI his urine culture did not grow a specific pathogen had been on IV ertapenem (h/o ESBL E.coli) + daptomycin (previous h/o enterococcus & coag neg staph UTIs) - rash developed, both stopped and changed to augmentin 04/18/24, then amoxicillin 04/20 (would cover enterococcus, CARE ANALYST, and most e.coli strains except ESBL e.coli) completed 10 days total of IV/p.o. antibiotics on 04/24. Doing very well. cont andrews cont flomax appreciate urology assistance - they will arrange office follow-up in about a week for stent removal and voiding trial with Dr. Abdullahi, please call urology office to confirm (2) Severe sepsis: 2nd to #1 resolved (3) Adrenal crisis: resolved early in hospitalization was on stress doses of IV hydrocortisone, now back to PO prednisone at his usual home dose (4) BPH (benign prostatic hyperplasia): cont flomax cont andrews 1 more week then voiding trial at that time treat UTI (5) Parkinson disease: chronic, long-standing dx continue sinemet at home dosing PT, OT with orthostasis - increased midodrine to 7.5mg TID this admission (6) Sepsis associated hypotension: resolved s/p IV fluids and IV hydrocortisone cont midodrine with dose adjustment to 7.5mg TID (7) Acute kidney injury superimposed on CKD: peak Cr 2.5 at time of presentation resolved Cr normalized to his baseline of 1 (8) Elevated troponin I level: peak trop 47 this is NOT due to ACS but rather myocardial demand ischemia in the setting of severe sepsis (9) Hematuria: 2nd to recent cystoscopy, laser litho, stent placement as well as UTI resolved (10) Inflammatory polyarthritis: on chronic prednisone 5mg daily (11) CKD (chronic kidney disease) stage 3, GFR 30-59 ml/min: baseline Cr about 1.3/1.4 (baseline CrCl 45-60 c/w stage 3a disease) now at baseline (12) Kidney stone: recent R-sided kidney stone s/p laser lithotripsy 04/15 now with R-sided ureteral stent which is in good position on CT a/p no residual large stone fragments or other stones on CT (13) Acute metabolic encephalopathy: resolved 2nd sepsis/UTI, hospital psychosis, discomfort from andrews, etc 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 increased such 10mg BID with resolved confusion and hallucinations ammonia level wnl B12 low normal --> replace with 1000mcg of B12 daily (oral) (14) Hypocalcemia: Admission calcium was 6.9 25-OH vit D level was normal in 02/2024. Calcium levels normal in december, february, march of 2024 treated with calcium gluconate and Tums 750mg TID intact PTH mildly elevated - this could be secondary hyperparathyroidism?? had had low phos -- now normal -- phos supplement stopped replaced low mag most recent calcium 8.5 uncertain etiology but resolved (15) Rash: contact derm vs allergic rxn to IV abx vs other favor latter -- steroids may have been masking a larger reaction was on IV ertapenem & IV daptomycin; these were d/c could have been either agent doubt augmentin as culprit -- rash started BEFORE augmentin was given doubt voltaren gel -- uses this chronically at home send to allergy post-d/c for consideration of testing - outpatient referral made. Other antibiotic intolerances - sulfa caused itching, cipro and levofloxacin caused joint/tendon pain. rash resolved (16) Diarrhea: c diff at admission neg, repeat c diff again negative, stool biofire negative his CT a/p at time of admission showed small bowel enteritis findings - perhaps this was all just abx-associated diarrhea - resolved (17) Hypomagnesemia: 2nd diarrhea replaced resolved (18) Swelling of left half of scrotum: chronic, but worse recently 2nd to moderate sized hydrocele + left-sided inguinal hernia - no Rx needed at this time; reassurance given no testicular tumor/mass on u/s Notes For Next Care Provider Urology follow up one week - urology supposed to arrange but would call to confirm/make appointment time Medication Changes From Visit Midodrine increased for orthostasis Nuplazid increased to bid with improvement in hallucinations Admission HPI Per Admitting Provider The patient is a 84-year-old male with past medical history including greater trochanteric pain syndrome, inflammatory polyarthritis, CKD stage III, Parkinson's disease with dementia, balanitis, history of urinary retention and incomplete bladder emptying, 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 On 04/15/2024 at 8:05 AM, he underwent a cystoscopy with urethral dilation, right flexible ureteroscopy, retrograde pyelogram, laser lithotripsy, ureteral dilation, basket extraction of stone and insertion of right ureteral stent catheter. He arrived to the urology office at 16:55 this afternoon, and reported not being able to void since the procedure earlier in the morning, and felt nauseous, having vomited twice while in the office. His PVR was 222. He was given prescriptions for Flomax and Zofran, told to drink lots of liquids, and if unable to urinate by 8 PM, he was to go to the ER for evaluation. In the emergency department, patient had a Andrews catheter placed, which returned gross hematuria, and was referred for evaluation for admission to the hospitalist service. Discharge Exam PHYSICAL EXAMINATION Last 24h vital signs reviewed, see documentation in flowsheet General: up in chair getting a shave, looks good exam unchanged 04/26: HEENT: Normocephalic, atraumatic, pupils round and equal, sclerae anicteric, no conjunctival injection, moist mucus membranes Lungs: Normal respiratory effort. Clear to auscultation bilaterally. No RRW Heart: Regular rate and rhythm, no murmurs. No JVD Abdomen: Soft, nontender, nondistended. Bowel sounds present. Extremities: Warm, dry, well-perfused. No extremity edema. arthritis deformities of hands Neuro: Alert and oriented x 4, face symmetric, masked facies, moves 4 extremities well, bilateral upper extremity rigidity and cogwheeling skin: No longer erythematous Psych: Normal affect and behavior Discharge Plan Discharge Items Patient Disposition: Transfer Intermediate Fac Reason For Visit: PAIN POST URETERAL STENT, UTI, HYPOTENSION, GROSS Discharge Diagnosis: Sepsis, urinary tract infection, adrenal crisis Activity: Resume your previous activity Weightbearing: Full weightbearing Non-emergency contact: Primary Care Provider and Urologist Call non-emergency contact if: you have any medication questions, your symptoms worsen and you have a fever Follow-up/Referrals: Mehrdad Avalos DO [Primary Care Provider] - Charisma Mcconnell MD [Physician] - (allergy testing - cephalosporin allergy? daptomycin allergy? ) Diet: Regular Diet Texture: Easy to Chew Addtl Attending Provider Instructions: PT and OT evaluate and treat HE does have orthostatic hypotension due to Parkinson's Continue andrews catheter for now Follow up with [facility] Urology Dr. Abdullahi in one week for ureteral stent and andrews catheter Referral made to allergy clinic to consider testing. Was on ertapenem and daptomycin prior to development of rash (now resolved). Tolerated augmentin and amoxicillin. Antibiotics for UTI were completed 04/25 (10 days course) Pending Studies at Discharge: No Stand-Alone Forms: My [facility] Skilled Items Patient informed of condition?: Yes DNR: No Discharge Level of Care: Skilled Communicable Disease: No Discharge Prognosis: Improving Lines: None Urinary Catheter: Yes Medications and DC Order Prescriptions: New tamsulosin 0.4 mg Capsule 0.4 mg PO HS Qty: 0 0RF midodrine 2.5 mg Tablet 7.5 mg PO TID@0800,1200,1600 Qty: 0 0RF Nuplazid 10 mg Tablet 10 mg PO BID Qty: 0 0RF loperamide 2 mg Capsule 2 mg PO Q6H PRNQty: 0 0RF cyanocobalamin (vitamin B-12) 500 mcg Tablet 1,000 mcg PO QAM Qty: 0 0RF pantoprazole 40 mg Tablet,Delayed Release (Dr/Ec) 40 mg PO QAM Qty: 0 0RF Advanced Probiotic 625 mg (10 billion cell) Capsule 1 cap PO DAILY Qty: 0 0RF Continued methenamine hippurate 1 gram tablet 1 gm PO HS Qty: 30 3RF gabapentin 100 mg capsule 100 mg PO HS Qty: 30 8RF carbidopa-levodopa 25-250 mg tablet 1 tab PO QID Qty: 90 5RF carbidopa-levodopa 50-200 mg tablet extended release 1 tab PO BID 14 Days Qty: 28 0RF ondansetron 8 mg tablet,disintegrating 8 mg PO Q8H PRN (Reason: nausea and vomiting) Qty: 30 0RF tamsulosin 0.4 mg capsule 0.4 mg PO DAILY Qty: 30 0RF finasteride 5 mg tablet 5 mg PO QAM clotrimazole-betamethasone 1-0.05 % cream 1 applic topical .qhs PRN (Reason: Pain) Rx Instructions: Apply small/pea-sized amount topically before bed prednisone 5 mg tablet 5 mg PO QAM sennosides-docusate sodium [Colace 2-In-1] 8.6-50 mg tablet 2 - 4 tab-cap PO DAILY PRN (Reason: constipation) celecoxib [Celebrex] 200 mg capsule 200 mg PO QAM peg 400-propylene glycol 0.4-0.3 % drops 1 drp ophthalmic (eye) BID ferrous gluconate 324 mg (36 mg iron) tablet 324 mg PO QDL (DME) Power Wheelchair Device See Rx Instructions .Route Qty: 1 0RF Rx Instructions: As directed diclofenac sodium [Voltaren] 1 % Gel 2 g TOPICAL UD PRN (Reason: Knee Pain) acetaminophen 500 mg Tablet 1,000 mg PO UD PRN (Reason: Pain) ascorbic acid (vitamin C) 500 mg Tablet 500 mg PO QAM Gemtesa 75 mg tablet 75 mg PO QPM clotrimazole-betamethasone 1-0.05 % cream 1 applic topical TID PRN (Reason: Swelling) Qty: 45 11RF Rx Instructions: Apply 2-3 x per day for swelling or irritation. Discontinued tramadol 50 mg tablet 50 mg PO Q6H PRN (Reason: pain) Qty: 30 1RF pantoprazole [Protonix] 40 mg tablet,delayed release (DR/EC) 40 mg PO BID Qty: 180 3RF nitrofurantoin monohyd/m-cryst [Macrobid] 100 mg capsule 100 mg PO Q12H 7 Days Qty: 14 0RF Patient Comments: new rx Rx Instructions: must administer with a meal/food sodium chloride 1 gram tablet 1 g PO TID 90 Days Qty: 270 0RF midodrine 10 mg tablet 5 mg PO TID 90 Days Qty: 135 3RF Rx Instructions: do not give last dose of day after 6PM or within 4 hrs of bedtime cholecalciferol (vitamin D3) [Vitamin D3] 25 mcg (1,000 unit) capsule 1,000 units PO TID famotidine 20 mg tablet 20 mg PO QAM Nuplazid 10 mg tablet 10 mg PO QAM phenazopyridine [Pyridium] 200 mg tablet 200 mg PO Q8H PRN (Reason: pain) Qty: 10 0RF oxycodone-acetaminophen [Percocet] 7.5-325 mg tablet 1 tab PO Q8H PRN (Reason: pain) Qty: 7 0RF amoxicillin-pot clavulanate 500-125 mg tablet 1 tab PO BID Qty: 14 0RF Discharge Orders: Discharge Order (Routine); Ordered 04/26/24 Ordered By: Lanette Sotomayor Admission Data Admit Date/Time: 04/15/24 22:49 Attending Provider: Lanette Sotomayor Admit Provider: Nima Garcia Primary Care Provider: Mehrdad Avalos Other Providers: [facility]; [facility]; Nima Garcia Other Interventions: Discharge Summary Assessment (RN) Last Done: 04/26/24 10:57 Hospital Stay Data Consultations 04/15/24 21:56 ED Decision to Admit Stat 04/16/24 01:02 Consult Urology Routine Diagnostic Imagining Performed 04/15/24 20:48 CT abd pelvis wo con Stat 04/21/24 14:39 US scrotum/testicle Routine Abdomen/Pelvis CT 04/15/24 20:48 Exam(s): CT ABDOMEN + PELVIS Without Contrast EXAM: CT Abdomen and Pelvis Without Intravenous Contrast CLINICAL HISTORY: recent stent. TECHNIQUE: Axial computed tomography images of the abdomen and pelvis without intravenous contrast. CTDI is 25.66 mGy and DLP is 1200.83 mGy-cm. Automated exposure control was utilized for the study. A dose lowering technique was utilized adhering to the principles of ALARA. COMPARISON: No relevant prior studies available. FINDINGS: Lung bases: Unremarkable. No mass. No consolidation. ABDOMEN: Liver: Unremarkable. Gallbladder and bile ducts: Layering hyperdense material suggested involving the posterior aspect of the gallbladder. No calcified gallstones. No definite CT evidence for gallbladder wall thickening or biliary dilatation. Pancreas: Unremarkable. No ductal dilation. Spleen: Unremarkable. No splenomegaly. Adrenals: Unremarkable. No mass. Kidneys and ureters: A right sided double-J ureteral stent is noted in position with the superior loop noted in the renal pelvis and the inferior loop noted within the bladder. No right sided hydronephrosis noted. Stomach and bowel: The stomach is moderately distended with fluid and gas. No definite gastric mucosal thickening. Diffuse fluid-filled loops of nondilated small bowel are noted. Moderate stool burden. Evaluation of the bowel mucosa is somewhat limited without contrast and respiratory artifact. PELVIS: Appendix: No findings to suggest acute appendicitis. Bladder: A Andrews catheter is noted in the predominantly decompressed bladder. No stones. Reproductive: Unremarkable as visualized. ABDOMEN and PELVIS: Intraperitoneal space: Unremarkable. No free air. No significant fluid collection. Bones/joints: Mild scoliosis of the thoracolumbar spine. No acute osseous abnormality. Left total hip arthroplasty. No dislocation. Soft tissues: Left inguinal hernia with intraperitoneal fat extending into the superior aspect of the partially excluded scrotum. No fluid or fat stranding identified. Vasculature: Unremarkable. No abdominal aortic aneurysm. Lymph nodes: Unremarkable. No enlarged lymph nodes. IMPRESSION: 1. A right sided double-J ureteral stent is noted in position with the superior loop noted in the renal pelvis and the inferior loop noted within the bladder. No right sided hydronephrosis noted. 2. Filled loops of small bowel is presumed normal variation. Mild enteritis is also a consideration. No evidence for bowel obstruction. 3. Left inguinal hernia with intraperitoneal fat extending into the superior aspect of the partially excluded scrotum. No fluid or fat stranding identified. Electronically signed by: Leonard Perdue MD 04/15/24 22:32 PM Chest X-Ray 04/15/24 20:48 XR chest 1V portable HISTORY: Sepsis COMPARISON: Chest 06/04/2023. FINDINGS: There are low lung volumes. No pneumothorax. No pleural effusions. The cardiac silhouette remains enlarged. There is left-sided dual-chamber pacemaker and cervical spinal fusion hardware. There is mild central pulmonary vascular congestion without overt edema. No new focal lung consolidations to suggest a pneumonia. IMPRESSION: Cardiomegaly with mild congestive change. ACT 112: Negative or not required by law. Electronically signed by: Jean-Paul Fall M.D. 04/16/2024 8:25 AM Scrotum Ultrasound 04/21/24 14:39 TESTICULAR ULTRASOUND HISTORY: L sided hydrocele vs hernia vs other COMPARISON: None. FINDINGS: Right testis: 32 x 25 x 20 mm. There are no intratesticular masses. Normal color flow. Small hydrocele. The epididymis is unremarkable. Left testis: 35 x 33 x 33 mm. There is an 11 mm intratesticular cyst. There are no intratesticular solid masses. Normal color flow. Moderate hydrocele. The epididymis is unremarkable. Fat-containing left inguinal hernia. Small left varicocele. IMPRESSION: 1. 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 This favors a benign lesion. Follow-up can be performed to ensure stability. 2. Normal right testis. 3. Small right and moderate left hydroceles. 4. Small left-sided varicocele. 5. Fat-containing left inguinal hernia. ACT 112: Negative or not required by law. Electronically signed by: Jean-Paul Fall M.D. 04/22/2024 7:34 AM 04/21/24 08:55 04/22/24 05:55 Pending Results Patient Have Any Pending Studies at Discharge: No Discharge Instructions Given to Patient (Per Discharging Provider) PT and OT evaluate and treat HE does have orthostatic hypotension due to Parkinson's Continue andrews catheter for now Follow up with [facility] Urology Dr. Abdullahi in one week for ureteral stent and andrews catheter Referral made to allergy clinic to consider testing. Was on ertapenem and daptomycin prior to development of rash (now resolved). Tolerated augmentin and amoxicillin. Antibiotics for UTI were completed 04/25 (10 days course) Total Time Total Time Spent Total Time Spent (In Minutes): I personally spent: 40 minutes today on clinical care activities including: reviewing chart notes and vital signs discussion with care manager cna examining and counseling the patient writing orders, discharge orders, instructions documentation Coding Level of Care Code 52447 INP/OBS DISCH >30 MIN Diagnoses Complicated UTI (urinary tract infection) N39.0 Severe sepsis A41.9; R65.20 Adrenal crisis E27.2 BPH (benign prostatic hyperplasia) N40.0 Parkinson disease G20 Sepsis associated hypotension A41.9; I95.9 Acute kidney injury superimposed on CKD N17.9; N18.9 Elevated troponin I level R79.89 Hematuria R31.0 Hematuria type: gross Inflammatory polyarthritis M06.4 CKD (chronic kidney disease) stage 3, GFR 30-59 ml/min N18.30 Kidney stone N20.0 Acute metabolic encephalopathy G93.41 Hypocalcemia E83.51 Rash R21 Diarrhea R19.7 Hypomagnesemia E83.42 Swelling of left half of scrotum N50.89
== END 2024-04-26 13:03 | DRG 871 ==
LOC: ED 20:40 → SUATTDRO 22:49 → 4W 22:49 → 3W 04-23 21:40

== ENCOUNTER 2025-06-28 11:53 | Observation (INO) ==
--- NOTE | 2025-06-28 12:08 | Emergency Department Note ---
Impression & Plan Unresponsive episode, Elevated troponin, Acute kidney injury superimposed on chronic kidney disease ED Provider Note HISTORY OF PRESENT ILLNESS: Patient is an 85-year-old male presenting after a reported unresponsive episode. Patient presents via EMS. His called 911 because he had an episode of unresponsiveness for about 5 minutes. Patient reports he awoke with a headache this morning. He states he remembers talking to his but does not remember what he was talking to her about. He states that his kept asking him if something was wrong because he apparently sounded abnormal this morning. Patient reports that a few days ago he accidentally fell out of bed and hit his head. He denies loss of consciousness. He is complaining of right hip pain and a headache. Denies any chest pain or shortness of breath. Denies any abdominal pain, nausea or vomiting. ROS: as above PHYSICAL EXAM: Constitutional: Patient appears in no acute distress. HENT: Head: Normocephalic and atraumatic. Eyes: EOMI, PERRL Mouth/Throat: Mucous membranes moist. Neck: Trachea midline. Neck supple. Cardiovascular: Paced rhythm. No murmurs, rubs or gallops. Intact distal pulses. Pulmonary/Chest: No respiratory distress. Breath sounds clear and equal bilaterally. No wheezes or rales. Abdominal: Abdomen soft, no tenderness, rebound or guarding. Musculoskeletal: No edema, tenderness or deformity noted. Skin: Warm and dry. No rash, erythema, pallor or cyanosis Psychiatric: Appropriate mood and affect for situation. Neurological: Alert and keenly responsive. CN II-XII grossly intact, moving all extremities equally and fully. MDM: - Vitals signs stable. - History obtained via patient. History as above. - Chronic conditions affecting care: CKD; Parkinson disease; BPH; hx of DVT; sinus node dysfunction (s/p pacemaker placement) - Differential diagnoses include, but are not limited to: Dysrhythmia; electrolyte abnormality; ACS; CVA; intracranial hemorrhage - Order placed for continuous cardiac monitoring. At this time, monitor showed rate of 64 bpm with paced rhythm, per my interpretation. - External medical records reviewed. Primary care visit note dated 05/26/2025 was reviewed. Patient was seen to rule out pneumonia. A chest x-ray was ordered at that time. - EKG image interpreted by myself showed paced rhythm. Rate 62 bpm. - Laboratory workup interpreted by myself showed normal WBC; normal PT/INR; stable electrolytes; elevated troponin (41.7); normal TSH; normal lipase; JM on CKD (Cr 1.79) - CXR image reviewed by myself noted for pneumonia, per my interpretation. - CT head wo contrast negative for acute intracranial pathology. Noted to have old basal ganglia ischemia. - Unclear etiology for the patient's episode of unresponsiveness. However, his troponin is more significantly elevated than previous. He is not complaining of any chest pain. However, given his unresponsive episode and elevated troponin, will admit the patient to the hospital service for further evaluation and management. - Discussion was had with case assembler about patient's case and need for admission - Hospitalist consulted for admission - Patient admitted to [facility] service for further evaluation and management. ASSESSMENT AND PLAN: Diagnosis: Unresponsive episode; elevated troponin; JM on CKD Plan: Admit Past Med/Surg History Problem List (Updated 06/28/25 @ 14:20 by Shweta Dubois MD) Acute kidney injury superimposed on chronic kidney disease (Acute) Elevated troponin (Acute) Unresponsive episode (Acute) Parkinson disease followed by Dr. 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 follow with [facility] Anemia Medical History Left inguinal hernia Nightmares Hallucinations Balanitis Severe sepsis Arthritis Hallucination mild>seeing bugs (reason for nuplazid) Restless legs Pacemaker (2019) Dr. oFster cards>gets checked monthly remote ([facility]?) Left knee DJD Right knee DJD Barretts esophagus Hydrocele Dysphonia Abnormal ankle brachial index (FATUMA) Bifascicular block Chronic since at least 2017 Sinus node dysfunction S/p pacemaker placed- had 3 second pause found on loop recorder History of subdural hematoma 2018--d/t fall and was on Eliquis Degenerative disc disease History of DVT of lower extremity approx 10 YR AGO right leg--happened during surgical procedure, was on a blood thinner at that time Atrial flutter with rapid ventricular response ? dx>pacemaker implanted for irregular hr GERD without esophagitis Insomnia Surgical History H/O repair of left rotator cuff History of prostate surgery History of cataract surgery rt/left History of cardiac cath "long time ago/no stents" History of lumbar surgery bone spur removal Status post evacuation of subdural hematoma 08/2018 @ [facility] [place] from fall History of hand surgery left hand--fingers ricardo d/t Parkinson's History of carpal tunnel release of both wrists History of total left hip replacement Hx of vasectomy History of bowel resection 2014--12 inches d/t diverticulitis @ [facility] [place] History of inguinal hernia repair History of colonoscopy with polypectomy History of esophagogastroduodenoscopy (EGD) History of tooth extraction Hx of fusion of cervical spine VERY limited ROM>more than 3 levels fused (11+ years ago) Family History Mother Myocardial infarction Colorectal cancer Other Heart problem No family history of adverse response to anesthesia Denies family history of Ovarian cancer Prostate cancer Breast cancer Lung cancer Social History Smoking Status: Former smoker Tobacco Type: Cigarettes Age Started Using Tobacco: 21; Age Quit Using Tobacco: 25; packs per day: 1; Cigarettes Per Day: 50+ YR AGO; Second Hand Exposure: No; Do You Dip or Chew Tobacco: No; Hx Alcohol Use: No Hx Substance Use: No Preferred Language: Yemeni Communication Ability: Effective Visual Impairment: Limited Hearing Ability: Normal Medical Surgery Nurse Required: No Beliefs That Will Affect Care: None marital status: Current Living Situation: Spouse current occupational status: retired How many Children do You have: 4 Feels Safe at Home: Yes Childhood Exposure to Second-Hand Smoke: Yes Diet: regular caffeine: Yes during the past year weight has: remained stable Dental Care, Regularly: Yes Physical Activity Frequency: 3-4 Times per Week Physical Activity Frequency Comment: chair exercises Seatbelt Use: always Sunscreen Use: No (not in the sun) Do you think of yourself as: straight/heterosexual Assistive Devices: Wheelchair Allergies Allergies Allergy/AdvReac Type Severity Reaction Status Date / Time Sulfa (Sulfonamide Allergy Mild itchy Verified 05/26/25 11:03 Antibiotics) alfuzosin [From Uroxatral] Allergy Unknown PT NOT SURE Verified 05/26/25 11:03 clindamycin Allergy Unknown PT NOT SURE Verified 05/26/25 11:03 aspirin AdvReac Mild upset Verified 05/26/25 11:03 stomach levofloxacin [From Levaquin] AdvReac Mild affected Verified 05/26/25 11:03 tendons in wrist Quinolones AdvReac Mild myalgia Verified 05/26/25 11:03 daptomycin Allergy Mild Rash Uncoded 05/26/25 11:03 ertapenem Allergy Mild Rash Uncoded 05/26/25 11:03 Home Meds Home Medications Medication Instructions Recorded Confirmed diclofenac sodium 1 % topical gel 0 g topical UD PRN Knee Pain 08/17/18 06/28/25 (Voltaren) finasteride 5 mg tablet 5 mg PO QAM 07/05/19 06/28/25 prednisone 5 mg tablet 5 mg PO QAM 08/22/19 06/28/25 acetaminophen 500 mg tablet 1,000 mg PO UD PRN Pain 01/09/20 06/28/25 celecoxib 200 mg capsule (Celebrex) 200 mg PO QAM 07/09/21 06/28/25 peg 400-propylene glycol 0.4 %-0.3 0 drp ophthalmic (eye) BID 07/09/21 06/28/25 % eye drops sennosides 8.6 mg-docusate sodium 0 tab-cap PO DAILY PRN constipation 12/27/21 06/28/25 50 mg tablet (Colace 2-In-1) midodrine 2.5 mg tablet 10 mg PO TID 11/18/24 06/28/25 L.acidop,casei,lactis,rham-B.lact,elba 0 cap PO DAILY 06/28/25 06/28/25 625 mg (10 billion cell) capsule (Advanced Probiotic) carbidopa 25 mg-levodopa 250 mg 1.5 tab PO TID 06/28/25 06/28/25 tablet carboxymethylcellulose sodium 0.5 1 drp ophthalmic (eye) QID 06/28/25 06/28/25 % eye drops cholecalciferol (vitamin D3) 25 2,000 mcg PO DAILY 06/28/25 06/28/25 mcg (1,000 unit) tablet docusate sodium 100 mg capsule 100 mg PO DAILY 06/28/25 06/28/25 famotidine 20 mg tablet 20 mg PO HS 06/28/25 06/28/25 gabapentin 100 mg capsule 100 mg PO HS 06/28/25 06/28/25 lidocaine 5 % topical patch 1 patch topical DAILY PRN Pain 06/28/25 06/28/25 ondansetron 8 mg disintegrating 0 mg PO Q8H PRN nausea and vomiting 06/28/25 06/28/25 tablet polyethylene glycol 3350 17 17 g PO DAILY PRN Constipation 06/28/25 06/28/25 gram/dose oral powder (Miralax) tamsulosin 0.4 mg capsule 0 mg PO DAILY 06/28/25 06/28/25 tramadol 50 mg tablet 50 mg PO Q6H PRN Pain 06/28/25 06/28/25 Previous Rx's Medication Instructions Recorded methenamine hippurate 1 gram tablet 1 gm PO HS #30 tabs 09/17/19 Wheelchair (Powered) (Power #1 ea 08/16/22 Wheelchair) cyanocobalamin (vitamin B-12) 500 1,000 mcg (2 x 500 mcg) PO QAM #0 04/25/24 mcg tablet tabs pantoprazole 40 mg tablet,delayed 40 mg PO QAM #0 tabs 04/25/24 release vibegron 75 mg tablet (Gemtesa) 75 mg PO QPM #90 tabs 09/16/24 pimavanserin 10 mg tablet 10 mg PO HS #30 tabs 02/14/25 (Nuplazid) carbidopa ER 50 mg-levodopa 200 mg 1 tab PO TID #270 tabs 06/25/25 tablet,extended release Results & Data (ED) Vital Signs Vital Signs - 24 hr 06/28/25 11:50 06/28/25 11:50 06/28/25 11:50 Temperature 36.3 C L Temperature Source Oral Pulse Rate 60 63 Pulse Rate [Right Finger] Pulse Rate from SpO2 Sensor Pulse Rhythm Regular Respiratory Rate 18 18 Respiratory Depth Blood Pressure 101/52 L Blood Pressure [Right Arm] Blood Pressure Mean 68 Blood Pressure Mean [Right Arm] Pulse Oximetry 98 98 Oxygen Delivery Method Room Air Room Air Room Air Sepsis Recent Fever Within 48 Hours No Sepsis New/Unexplained Change in Mental Status No Sepsis Action Taken by Nursing No Action Required 06/28/25 11:50 06/28/25 12:05 06/28/25 12:09 Temperature 36.3 C L Temperature Source Oral Pulse Rate 63 61 Pulse Rate [Right Finger] 60 Pulse Rate from SpO2 Sensor 61 Pulse Rhythm Respiratory Rate 18 18 20 Respiratory Depth Normal Blood Pressure Blood Pressure [Right Arm] 101/52 L Blood Pressure Mean Blood Pressure Mean [Right Arm] 68 Pulse Oximetry 98 98 95 Oxygen Delivery Method Room Air Room Air Sepsis Recent Fever Within 48 Hours Sepsis New/Unexplained Change in Mental Status Sepsis Action Taken by Nursing 06/28/25 12:18 06/28/25 12:21 06/28/25 12:24 Temperature Temperature Source Pulse Rate 60 60 Pulse Rate [Right Finger] Pulse Rate from SpO2 Sensor 60 60 Pulse Rhythm Respiratory Rate 26 H Respiratory Depth Blood Pressure Blood Pressure [Right Arm] Blood Pressure Mean Blood Pressure Mean [Right Arm] Pulse Oximetry 95 97 Oxygen Delivery Method Sepsis Recent Fever Within 48 Hours Sepsis New/Unexplained Change in Mental Status Sepsis Action Taken by Nursing 06/28/25 12:30 06/28/25 12:31 06/28/25 12:31 Temperature Temperature Source Pulse Rate 62 Pulse Rate [Right Finger] Pulse Rate from SpO2 Sensor 61 Pulse Rhythm Respiratory Rate 21 Respiratory Depth Blood Pressure 83/47 L 83/47 L Blood Pressure [Right Arm] Blood Pressure Mean 56 56 Blood Pressure Mean [Right Arm] Pulse Oximetry 97 Oxygen Delivery Method Sepsis Recent Fever Within 48 Hours Sepsis New/Unexplained Change in Mental Status Sepsis Action Taken by Nursing 06/28/25 12:31 06/28/25 12:42 06/28/25 12:51 Temperature Temperature Source Pulse Rate 60 63 Pulse Rate [Right Finger] Pulse Rate from SpO2 Sensor 60 62 Pulse Rhythm Respiratory Rate 21 27 H Respiratory Depth Blood Pressure 83/47 L Blood Pressure [Right Arm] Blood Pressure Mean 56 Blood Pressure Mean [Right Arm] Pulse Oximetry 97 98 Oxygen Delivery Method Sepsis Recent Fever Within 48 Hours Sepsis New/Unexplained Change in Mental Status Sepsis Action Taken by Nursing 06/28/25 13:00 06/28/25 13:12 06/28/25 13:27 Temperature Temperature Source Pulse Rate 60 61 60 Pulse Rate [Right Finger] Pulse Rate from SpO2 Sensor 60 60 Pulse Rhythm Respiratory Rate 19 19 19 Respiratory Depth Blood Pressure Blood Pressure [Right Arm] Blood Pressure Mean Blood Pressure Mean [Right Arm] Pulse Oximetry 97 99 Oxygen Delivery Method Sepsis Recent Fever Within 48 Hours Sepsis New/Unexplained Change in Mental Status Sepsis Action Taken by Nursing 06/28/25 13:30 06/28/25 13:30 06/28/25 13:51 Temperature Temperature Source Pulse Rate 60 Pulse Rate [Right Finger] Pulse Rate from SpO2 Sensor 60 Pulse Rhythm Respiratory Rate 16 Respiratory Depth Blood Pressure 122/75 122/75 Blood Pressure [Right Arm] Blood Pressure Mean 105 105 Blood Pressure Mean [Right Arm] Pulse Oximetry 97 Oxygen Delivery Method Sepsis Recent Fever Within 48 Hours Sepsis New/Unexplained Change in Mental Status Sepsis Action Taken by Nursing 06/28/25 14:03 Temperature Temperature Source Pulse Rate 64 Pulse Rate [Right Finger] Pulse Rate from SpO2 Sensor Pulse Rhythm Respiratory Rate 18 Respiratory Depth Blood Pressure Blood Pressure [Right Arm] Blood Pressure Mean Blood Pressure Mean [Right Arm] Pulse Oximetry Oxygen Delivery Method Sepsis Recent Fever Within 48 Hours Sepsis New/Unexplained Change in Mental Status Sepsis Action Taken by Nursing Laboratory Data 06/28/25 12:05 06/28/25 12:05 Lab Results 06/28/25 Range/Units 12:05 WBC 8.63 (4.8-10.8) K/ul RBC 4.03 L (4.70-6.10) M/uL Hgb 13.3 L (14.0-18.0) g/dl Hct 40.2 L (42.0-52.0) % MCV 99.8 (80.0-100.0) fL MCH 33.0 (25.0-34.0) pg MCHC 33.1 (32.0-36.0) g/dL RDW Std Deviation 48.2 H (36.4-46.3) fL RDW Coeff of Capo 13.2 (11.5-14.5) % Plt Count 182 (130-400) K/uL MPV 9.9 (9.4-12.4) fL Immature Gran % (Auto) 0.5 % Neut % (Auto) 79.2 % Lymph % (Auto) 10.0 % Rankin % (Auto) 7.4 % Eos % (Auto) 2.2 % Baso % (Auto) 0.7 % Neut # (Auto) 6.84 H (1.40-6.50) K/uL Lymph # (Auto) 0.86 L (1.20-3.40) K/uL Rankin # (Auto) 0.64 H (0.11-0.59) K/uL Eos # (Auto) 0.19 (0.00-0.50) K/uL Baso # (Auto) 0.06 (0.00-0.20) K/uL Immature Gran # (Auto) 0.04 (0.01-0.20) K/uL PT 11.9 (9.0-12.0) Seconds INR 1.1 (0.9-1.1) Sodium 137 (136-145) mmol/L Potassium 5.1 (3.5-5.1) mmol/L Chloride 103 (98-107) mmol/L Carbon Dioxide 26 (21-32) mmol/L Anion Gap 8 (3-11) BUN 37 H (6-23) mg/dl Creatinine 1.79 H (0.6-1.4) mg/dl Est Cr Clr Drug Dosing 33.0 ml/min eGFR 37.13 BUN/Creatinine Ratio 20.7 H (10-20) Glucose 108 H (70-99(Fasting)) mg/dl Calcium 9.7 (8.6-10.3) mg/dl Magnesium 1.8 (1.7-2.4) mg/dl Total Bilirubin 0.8 (0.2-1.0) mg/dl AST 6 L (13-39) U/L ALT 3 L (7-52) U/L Alkaline Phosphatase 48 (34-104) U/L Troponin I High Sens 41.7 H (0-20) pg/ml Total Protein 7.3 (6.0-8.3) gm/dl Albumin 3.9 (3.4-5.0) gm/dl Globulin 3.4 (2.5-4.0) gm/dl Albumin/Globulin Ratio 1.1 (0.9-2) Lipase 22 (11-82) U/L TSH 3.293 (0.300-4.500) uIu/ml Imaging Data Radiologist's Impression: Chest X-Ray 06/28/25 12:05 Clinical History: Fall Technique: A frontal view of the chest was obtained Findings: There are no confluent pulmonary infiltrates. The heart size is within normal limits. No pleural effusion or pneumothorax is seen. There is no definite pulmonary nodule. No fracture is noted. There is a left chest wall pacemaker device Impression: No active disease Electronically signed by Carlos Osorio 06-28-2025 13:[address] 06/28/25 12:05 Clinical History: Slurred speech Technique: Axial computed tomography images were obtained of the brain from the vertex to the skull base without intravenous contrast. Comparison is made to the prior CT dated 11/18/2024 Findings: There is no sign of intracranial hemorrhage. There is mild cerebral atrophy. There is an unchanged old infarct of the right lentiform nucleus. No midline shift or other form of herniation is identified. There is no hydrocephalus. No obvious mass lesion is seen on this noncontrast examination. The visualized portions of the orbits and paranasal sinuses appear unremarkable. The mastoid air cells appear clear There is a left frontoparietal craniotomy defect Impression: 1. No definite acute pathology 2. Old right basal ganglia infarct Electronically signed by Carlos Osorio 06-28-2025 13:29 PM Pelvis X-Ray 06/28/25 12:05 Clinical History: Trauma 2 views of the pelvis are submitted for review. Findings: No fracture is seen. There is a left hip total arthroplasty. There is mild right hip osteoarthritis. No other osseous abnormality is identified. There are no radiopaque foreign bodies. Impression: 1. Left hip replacement 2. Mild right hip osteoarthritis 3. No definite fracture Electronically signed by Carlos Osorio 06-28-2025 13:22 PM Discharge Plan Visit Data Chief Complaint: Syncope Stated Complaint: NEAR SYNCOPE ED Provider: Shweta Dubois Discharge Problem: Unresponsive episode, Elevated troponin, Acute kidney injury superimposed on chronic kidney disease Condition: Fair Forms Stand Alone Forms: My Bleacher Report Prescriptions Prescriptions: No Action methenamine hippurate 1 gram tablet 1 gm PO HS Qty: 30 3RF Gemtesa 75 mg tablet 75 mg PO QPM Qty: 90 3RF Nuplazid 10 mg tablet 10 mg PO HS Qty: 30 5RF finasteride 5 mg tablet 5 mg PO QAM prednisone 5 mg tablet 5 mg PO QAM sennosides-docusate sodium [Colace 2-In-1] 8.6-50 mg tablet 0 tab-cap PO DAILY PRN (Reason: constipation) Patient Comments: 06/28- [facility] celecoxib [Celebrex] 200 mg capsule 200 mg PO QAM peg 400-propylene glycol 0.4-0.3 % drops 0 drp ophthalmic (eye) BID Patient Comments: 06/28- Not [facility] unable to verify (DME) Power Wheelchair Device See Rx Instructions .Route Qty: 1 0RF Rx Instructions: As directed carbidopa-levodopa 50-200 mg tablet extended release 1 tab PO TID Qty: 270 3RF diclofenac sodium [Voltaren] 1 % Gel 0 g TOPICAL UD PRN (Reason: Knee Pain) Patient Comments: 06/28- Not [facility]ed [facility] unable to verify acetaminophen 500 mg Tablet 1,000 mg PO UD PRN (Reason: Pain) tramadol 50 mg Tablet 50 mg PO Q6H PRN (Reason: Pain) famotidine 20 mg Tablet 20 mg PO HS carboxymethylcellulose sodium 0.5 % Drops 1 drp OPHTHALMIC (EYE) QID lidocaine 5 % Adhesive Patch,Medicated 1 patch TOPICAL DAILY PRN (Reason: Pain) Rx Instructions: leave on most painful area for up to 12 hrs docusate sodium 100 mg Capsule 100 mg PO DAILY polyethylene glycol 3350 [Miralax] 17 gram/dose Powder 17 g PO DAILY PRN (Reason: Constipation) cholecalciferol (vitamin D3) 25 mcg (1,000 unit) Tablet 2,000 mcg PO DAILY carbidopa-levodopa 25-250 mg tablet 1.5 tab PO TID Rx Instructions: take 1.5 tabs TID and take one at HS ondansetron 8 mg tablet,disintegrating 0 mg PO Q8H PRN (Reason: nausea and vomiting) Patient Comments: 06/28- Not [facility]ed [facility] unable to [facility] tamsulosin 0.4 mg capsule 0 mg PO DAILY Patient Comments: 06/28- Not on [facility]ed list [facility] unable to verify gabapentin 100 mg capsule 100 mg PO HS Advanced Probiotic 625 mg (10 billion cell) capsule 0 cap PO DAILY Patient Comments: 06/28- Not on [facility]ed list [facility] unable to verify cyanocobalamin (vitamin B-12) 500 mcg Tablet 1,000 mcg PO QAM Qty: 0 0RF pantoprazole 40 mg Tablet,Delayed Release (Dr/Ec) 40 mg PO QAM Qty: 0 0RF midodrine 2.5 mg tablet 10 mg PO TID Referrals Referrals: Mehrdad Avalos DO [Primary Care Provider] -
[2025-06-28 12:18] LABS: Hematocrit (blood only) 40.2 % (42.0-52.0); Hemoglobin 13.3 g/dl (14.0-18.0); Immature Granulocytes # (auto) 0.04 K/uL (0.01-0.20); Immature Granulocytes % (auto) 0.5 %; Mean Corpuscular Hemoglobin 33.0 pg (25.0-34.0); Mean Corpuscular Volume 99.8 fL (80.0-100.0); Platelet Count 182 K/uL (130-400); RDW Standard Deviation 48.2 fL (36.4-46.3); Red Blood Count 4.03 M/uL (4.70-6.10); White Blood Count 8.63 K/ul (4.8-10.8)
[2025-06-28 12:37] LABS: Alanine Aminotransferase 3.0 U/L (7-52); Albumin Globulin Ratio 1.1 (0.9-2); Albumin Level 3.9 gm/dl (3.4-5.0); Alkaline Phosphatase 48.0 U/L (34-104); Anion Gap 8.0 (3-11); Bilirubin,Total 0.8 mg/dl (0.2-1.0); Blood Urea Nitrogen 37.0 mg/dl (6-23); Calcium 9.7 mg/dl (8.6-10.3); Carbon Dioxide 26.0 mmol/L (21-32); Chloride 103.0 mmol/L (98-107); Creatinine Clr Calc Pharmacy 33.0 ml/min; Globulin 3.4 gm/dl (2.5-4.0); Glucose 108.0 mg/dl (70-99(Fasting)); Lipase 22.0 U/L (11-82); Magnesium 1.8 mg/dl (1.7-2.4); Potassium 5.1 mmol/L (3.5-5.1); Sodium 137.0 mmol/L (136-145); Total Protein 7.3 gm/dl (6.0-8.3)
[2025-06-28 12:46] LABS: INR 1.1 (0.9-1.1); Prothrombin Time 11.9 Seconds (9.0-12.0)
[2025-06-28 12:51] LABS: Thyroid Stimulating Hormone 3.293 uIu/ml (0.300-4.500)
--- NOTE | 2025-06-28 13:21 | XRay Report ---
Clinical History: Fall Technique: A frontal view of the chest was obtained Findings: There are no confluent pulmonary infiltrates. The heart size is within normal limits. No pleural effusion or pneumothorax is seen. There is no definite pulmonary nodule. No fracture is noted. There is a left chest wall pacemaker device Impression: No active disease Electronically signed by Carlos Osorio 06-28-2025 13:21 PM
--- NOTE | 2025-06-28 13:22 | XRay Report ---
Clinical History: Trauma 2 views of the pelvis are submitted for review. Findings: No fracture is seen. There is a left hip total arthroplasty. There is mild right hip osteoarthritis. No other osseous abnormality is identified. There are no radiopaque foreign bodies. Impression: 1. Left hip replacement 2. Mild right hip osteoarthritis 3. No definite fracture Electronically signed by Carlos Osorio 06-28-2025 13:22 PM
--- NOTE | 2025-06-28 13:30 | CT Scan Report ---
Clinical History: Slurred speech Technique: Axial computed tomography images were obtained of the brain from the vertex to the skull base without intravenous contrast. Comparison is made to the prior CT dated 11/18/2024 Findings: There is no sign of intracranial hemorrhage. There is mild cerebral atrophy. There is an unchanged old infarct of the right lentiform nucleus. No midline shift or other form of herniation is identified. There is no hydrocephalus. No obvious mass lesion is seen on this noncontrast examination. The visualized portions of the orbits and paranasal sinuses appear unremarkable. The mastoid air cells appear clear There is a left frontoparietal craniotomy defect Impression: 1. No definite acute pathology 2. Old right basal ganglia infarct Electronically signed by Carlos Osorio 06-28-2025 13:29 PM
[2025-06-28 16:46] LABS: Appearance Urine Clear (Clear); Bacteria Urine Automated 2+ (None Seen); Epithelial Cell Urine Auto 0-2 /hpf (0-2); Glucose Urine UA Negative (Negative); RBC Urine Automated 0-2 /hpf (0-2); WBC Urine Automated >50 /hpf (0-5)
--- NOTE | 2025-06-28 16:55 | Electrocardiogram Report ---
Test Reason : Blood Pressure : */* mmHG Vent. Rate : 62 BPM Atrial Rate : 62 BPM P-R Int : 206 ms QRS Dur : 130 ms QT Int : 456 ms P-R-T Axes : * -54 64 degrees QTcB Int : 462 ms Atrial-paced rhythm with Premature atrial complexes Right bundle branch block Left anterior fascicular block Bifascicular block Minimal voltage criteria for LVH, may be normal variant Abnormal ECG When compared with ECG of 18-Nov-2024 11:26, Electronic atrial pacemaker has replaced Sinus rhythm Confirmed by Nabor Hartman ([id number]) on 06/28/2025 4:55:14 PM Referred By: REFERRED SELF Confirmed By: Nabor Hartman
[2025-06-28] MEDS ORDERED: LIDOCAINE 5% 1 PATCH TD PRN (19:03)
[2025-06-28] MEDS ORDERED: POLYETHYLENE (MIRALAX) 17 GM PACK PO PRN (19:03)
--- NOTE | 2025-06-28 19:23 | History & Physical Report ---
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: (7) CKD (chronic kidney disease) stage 3, GFR 30-59 ml/min: Plan Unresponsive episode - will place in medsurge / tele - neuro checks - ordered MRI though will not get done until Monday given PPM - will request Neuro eval Elevated troponin - trended flat - EKG shows paced rhythm - will check ECHO Parkinson's disease - cont home meds - pt did have his ER sinemet increased though he has not started this yet - cont midodrine - cont gabapentin BPH - prn straight cath - check UA - cont finasteride and tamsulosin - cont methenamine hippurate JM / CKD - pt uses NSAIDs at home - hold for now - gentle hydration - trend at this time DVT ppx: SCDs Code status: Full code- pt does not want to be vent dependent if no meaningful recovery is made Admission and Anticipated Discharge Date Admission Date: June 28, 2025 History of Present Illness Chief Complaint: Unresponsive episode Primary Care Provider: Mehrdad Avalos, 85 yr old M with PMHx of Parkinson's disease complicated by orthostatic hypotension, wheelchair dependent at baseline, CKD III, BPH presents to the hospital for the evaluation of unresponsive episode. who was at bedside describes it as pt not responding to her, his left eye closed, left facial drooping. The whole episode lasted about 5 mins and occurred during breakfast. EMS came and brought pt to the hospital. His workup has so far been unremarkable. Pt states that this could be due to his orthostatic hypotension. He is currently otherwise asymptomatic Allergies Allergy/AdvReac Type Severity Reaction Status Date / Time Sulfa (Sulfonamide Allergy Mild itchy Verified 05/26/25 11:03 Antibiotics) alfuzosin [From Uroxatral] Allergy Unknown PT NOT SURE Verified 05/26/25 11:03 clindamycin Allergy Unknown PT NOT SURE Verified 05/26/25 11:03 aspirin AdvReac Mild upset Verified 05/26/25 11:03 stomach levofloxacin [From Levaquin] AdvReac Mild affected Verified 05/26/25 11:03 tendons in wrist Quinolones AdvReac Mild myalgia Verified 05/26/25 11:03 daptomycin Allergy Mild Rash Uncoded 05/26/25 11:03 ertapenem Allergy Mild Rash Uncoded 05/26/25 11:03 Home Medications Medication Instructions Recorded Confirmed Type diclofenac sodium 1 % topical gel 0 g topical UD PRN Knee Pain 08/17/18 06/28/25 History (Voltaren) finasteride 5 mg tablet 5 mg PO QAM 07/05/19 06/28/25 History prednisone 5 mg tablet 5 mg PO QAM 08/22/19 06/28/25 History methenamine hippurate 1 gram tablet 1 gm PO HS #30 tabs 09/17/19 06/28/25 Rx acetaminophen 500 mg tablet 1,000 mg PO UD PRN Pain 01/09/20 06/28/25 History celecoxib 200 mg capsule (Celebrex) 200 mg PO QAM 07/09/21 06/28/25 History peg 400-propylene glycol 0.4 %-0.3 0 drp ophthalmic (eye) BID 07/09/21 06/28/25 History % eye drops sennosides 8.6 mg-docusate sodium 0 tab-cap PO DAILY PRN constipation 12/27/21 06/28/25 History 50 mg tablet (Colace 2-In-1) Wheelchair (Powered) (Power #1 ea 08/16/22 05/26/25 Rx Wheelchair) cyanocobalamin (vitamin B-12) 500 1,000 mcg (2 x 500 mcg) PO QAM #0 04/25/24 06/28/25 Rx mcg tablet tabs pantoprazole 40 mg tablet,delayed 40 mg PO QAM #0 tabs 04/25/24 06/28/25 Rx release vibegron 75 mg tablet (Gemtesa) 75 mg PO QPM #90 tabs 09/16/24 06/28/25 Rx midodrine 2.5 mg tablet 10 mg PO TID 11/18/24 06/28/25 History pimavanserin 10 mg tablet 10 mg PO HS #30 tabs 02/14/25 06/28/25 Rx (Nuplazid) carbidopa ER 50 mg-levodopa 200 mg 1 tab PO TID #270 tabs 06/25/25 06/28/25 Rx tablet,extended release L.acidop,casei,lactis,rham-B.lact,elba 0 cap PO DAILY 06/28/25 06/28/25 History 625 mg (10 billion cell) capsule (Advanced Probiotic) carbidopa 25 mg-levodopa 250 mg 1.5 tab PO TID 06/28/25 06/28/25 History tablet carboxymethylcellulose sodium 0.5 1 drp ophthalmic (eye) QID 06/28/25 06/28/25 History % eye drops cholecalciferol (vitamin D3) 25 2,000 mcg PO DAILY 06/28/25 06/28/25 History mcg (1,000 unit) tablet docusate sodium 100 mg capsule 100 mg PO DAILY 06/28/25 06/28/25 History famotidine 20 mg tablet 20 mg PO HS 06/28/25 06/28/25 History gabapentin 100 mg capsule 100 mg PO HS 06/28/25 06/28/25 History lidocaine 5 % topical patch 1 patch topical DAILY PRN Pain 06/28/25 06/28/25 History ondansetron 8 mg disintegrating 0 mg PO Q8H PRN nausea and vomiting 06/28/25 06/28/25 History tablet polyethylene glycol 3350 17 17 g PO DAILY PRN Constipation 06/28/25 06/28/25 History gram/dose oral powder (Miralax) tamsulosin 0.4 mg capsule 0 mg PO DAILY 06/28/25 06/28/25 History tramadol 50 mg tablet 50 mg PO Q6H PRN Pain 06/28/25 06/28/25 History Past Med/Surg History Problem List (Updated 06/28/25 @ 14:20 by Shweta Dubois MD) Acute kidney injury superimposed on chronic kidney disease (Acute) Elevated troponin (Acute) Unresponsive episode (Acute) Parkinson disease followed by Dr. 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 follow with [facility] Anemia Medical History Left inguinal hernia Nightmares Hallucinations Balanitis Severe sepsis Arthritis Hallucination mild>seeing bugs (reason for nuplazid) Restless legs Pacemaker (2019) Dr. Foster cards>gets checked monthly remote ([facility]?) Left knee DJD Right knee DJD Barretts esophagus Hydrocele Dysphonia Abnormal ankle brachial index (FATUMA) Bifascicular block Chronic since at least 2017 Sinus node dysfunction S/p pacemaker placed- had 3 second pause found on loop recorder History of subdural hematoma 2018--d/t fall and was on Eliquis Degenerative disc disease History of DVT of lower extremity approx 10 YR AGO right leg--happened during surgical procedure, was on a blood thinner at that time Atrial flutter with rapid ventricular response ? dx>pacemaker implanted for irregular hr GERD without esophagitis Insomnia Surgical History H/O repair of left rotator cuff History of prostate surgery History of cataract surgery rt/left History of cardiac cath "long time ago/no stents" History of lumbar surgery bone spur removal Status post evacuation of subdural hematoma 08/2018 @ [facility] from fall History of hand surgery left hand--fingers ricardo d/t Parkinson's History of carpal tunnel release of both wrists History of total left hip replacement Hx of vasectomy History of bowel resection 2014--12 inches d/t diverticulitis @ [facility] [place] History of inguinal hernia repair History of colonoscopy with polypectomy History of esophagogastroduodenoscopy (EGD) History of tooth extraction Hx of fusion of cervical spine VERY limited ROM>more than 3 levels fused (11+ years ago) Family History Mother Myocardial infarction Colorectal cancer Other Heart problem No family history of adverse response to anesthesia Denies family history of Ovarian cancer Prostate cancer Breast cancer Lung cancer Social History Smoking Status: Former smoker Tobacco Type: Cigarettes Age Started Using Tobacco: 21; Age Quit Using Tobacco: 25; packs per day: 1; Cigarettes Per Day: 50+ YR AGO; Second Hand Exposure: No; Do You Dip or Chew Tobacco: No; Hx Alcohol Use: No Hx Substance Use: No Preferred Language: Salvadorean Communication Ability: Effective Visual Impairment: Limited Hearing Ability: Normal Technical Systems Architect Required: No Beliefs That Will Affect Care: None marital status: Current Living Situation: Spouse current occupational status: retired How many Children do You have: 4 Feels Safe at Home: Yes Childhood Exposure to Second-Hand Smoke: Yes Diet: regular caffeine: Yes during the past year weight has: remained stable Dental Care, Regularly: Yes Physical Activity Frequency: 3-4 Times per Week Physical Activity Frequency Comment: chair exercises Seatbelt Use: always Sunscreen Use: No (not in the sun) Do you think of yourself as: straight/heterosexual Assistive Devices: Wheelchair Review of Systems Review of Systems: Comprehensive ROS completed and is otherwise negative. Physical Exam Physical Exam: Gen: no acute distress, lying in bed comfortable HEENT: NC/AT, MMM Lungs: nonlabored breathing, CTAB CVS: s1s2nl, RRR Abd: nl bowel sounds, soft, NT / ND : no andrews Ext: no edema Neuro: AAOx3 slow movement noted as well as some rigidity in the extremities Psych: calm, cooperative Results & Data Results & Data Vital Signs (Past 12 Hours) Vital Signs Temp Pulse Pulse Resp BP BP Pulse Ox 06/28/25 16:28 84 06/28/25 16:00 81 16 150/97 H 97 06/28/25 14:33 64 20 144/97 H 99 06/28/25 14:09 60 18 127/74 100 06/28/25 14:03 64 18 06/28/25 13:51 60 16 97 06/28/25 13:30 122/75 06/28/25 13:30 122/75 06/28/25 13:27 60 19 99 06/28/25 13:12 61 19 97 06/28/25 13:00 60 19 06/28/25 12:51 63 27 H 98 06/28/25 12:42 60 21 97 06/28/25 12:31 83/47 L 06/28/25 12:31 83/47 L 06/28/25 12:31 83/47 L 06/28/25 12:30 62 21 97 06/28/25 12:24 60 06/28/25 12:21 60 26 H 97 06/28/25 12:18 95 06/28/25 12:09 61 20 95 06/28/25 12:05 63 18 98 06/28/25 11:50 36.3 C L 60 18 101/52 L 98 06/28/25 11:50 06/28/25 11:50 63 18 98 06/28/25 11:50 36.3 C L 60 18 101/52 L 98 O2 Del Method 06/28/25 16:28 06/28/25 16:00 Room Air 06/28/25 14:33 Room Air 06/28/25 14:09 Room Air 06/28/25 14:03 06/28/25 13:51 06/28/25 13:30 06/28/25 13:30 06/28/25 13:27 06/28/25 13:12 06/28/25 13:00 06/28/25 12:51 06/28/25 12:42 06/28/25 12:31 06/28/25 12:31 06/28/25 12:31 06/28/25 12:30 06/28/25 12:24 06/28/25 12:21 06/28/25 12:18 06/28/25 12:09 06/28/25 12:05 Room Air 06/28/25 11:50 Room Air 06/28/25 11:50 Room Air 06/28/25 11:50 Room Air 06/28/25 11:50 Room Air PG Care Time/CCT Total # of Minutes Spent Total Time Spent with Patient: Total time spent is greater than 50% in coordination of care (as documented) at patient's floor/unit and/or counseling patient: Coding Level of Care Code 80746 INT INP/OBS CARE 3/75MIN Diagnoses Acute kidney injury superimposed on chronic kidney disease N17.9; N18.9 Elevated troponin R79.89 Unresponsive episode R40.4 Parkinson disease G20 Dementia in Parkinson's disease G20; F02.80 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
[2025-06-28] MEDS ORDERED: CARBIDOPA/LEVODOPA 50/200MG EXT REL TAB PO SCH (21:00)
[2025-06-28] MEDS ORDERED: CARBIDOPA/LEVODOPA 25-250 1 EA TAB PO SCH (21:00)
[2025-06-28] MEDS: PIMAVANSERIN TARTRATE PO SCH (22:05)
[2025-06-28] MEDS: CARBIDOPA/LEVODOPA 50/200MG EXT REL TAB PO SCH (22:05)
[2025-06-28] MEDS: CARBIDOPA/LEVODOPA 25-250 1 EA TAB PO SCH (22:06)
[2025-06-28] MEDS: GABAPENTIN 100 MG CAP PO SCH (22:09)
[2025-06-28] MEDS: VIBEGRON 75 MG TAB PO SCH (22:10)
[2025-06-28] MEDS: REMOVE LIDODERM PATCH SCH (22:16)
[2025-06-28] MEDS: METHENAMINE HIPPURATE 1 GM TAB PO SCH (22:17)
[2025-06-28] MEDS: FAMOTIDINE 20 MG TAB PO SCH (22:22)
[2025-06-28] MEDS: PLASMA-LYTE A 1,000 ML IV SCH (22:30)
[2025-06-28] MEDS: ARTIFICIAL TEARS OP SCH (22:47)
[2025-06-29 08:00] LABS: Hematocrit (blood only) 36.6 % (42.0-52.0); Hemoglobin 12.8 g/dl (14.0-18.0); Immature Granulocytes # (auto) 0.03 K/uL (0.01-0.20); Immature Granulocytes % (auto) 0.5 %; Mean Corpuscular Hemoglobin 34.1 pg (25.0-34.0); Mean Corpuscular Volume 97.6 fL (80.0-100.0); Platelet Count 174 K/uL (130-400); RDW Standard Deviation 46.6 fL (36.4-46.3); Red Blood Count 3.75 M/uL (4.70-6.10); White Blood Count 5.86 K/ul (4.8-10.8)
[2025-06-29 08:20] LABS: Anion Gap 7.0 (3-11); Blood Urea Nitrogen 39.0 mg/dl (6-23); Calcium 9.4 mg/dl (8.6-10.3); Carbon Dioxide 25.0 mmol/L (21-32); Chloride 104.0 mmol/L (98-107); Creatinine Clr Calc Pharmacy 34.7 ml/min; Glucose 84.0 mg/dl (70-99(Fasting)); Potassium 4.7 mmol/L (3.5-5.1); Sodium 136.0 mmol/L (136-145)
[2025-06-29] MEDS: MIDODRINE HCL 10 MG TAB PO SCH (08:38)
[2025-06-29] MEDS: CARBIDOPA/LEVODOPA 25-250 1 EA TAB PO SCH (08:38)
[2025-06-29] MEDS: CHOLECALCIFEROL 25 MCG (1000 UNITS) TAB PO SCH (08:38)
[2025-06-29] MEDS: CYANOCOBALAMIN (B-12) 500 MCG TABLET PO SCH (08:38)
[2025-06-29] MEDS: TAMSULOSIN HCL 0.4 MG CAP PO SCH (08:39)
[2025-06-29] MEDS: FINASTERIDE 5 MG TAB PO SCH (08:39)
[2025-06-29] MEDS: DOCUSATE SODIUM/SENNA 50/8.6MG TAB PO PRN (08:42)
[2025-06-29] MEDS: DOCUSATE SODIUM 100 MG CAP PO SCH (08:43)
--- NOTE | 2025-06-29 10:38 | XCELERA ---
[id number]
--- NOTE | 2025-06-29 10:46 | Neurology Consultation ---
Date of Consultation June 29, 2025 Assessment & Plan (1) Unresponsive episode: 1-given unresponsive episode with some focality suggest obtaining EEG routine study looking for seizures. 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 2-MRI of the brain without glendy looking for new stroke (stroke protocol) 3-in terms of mechanism of unresponsive state differential includes a vascular source such as stroke related or seizures given focality and initial presentation(left facial droop). 4-suggest obtaining MRA of the head and neck looking for vascular stenosis 5-cardiac workup in progress to include echocardiogram and following troponins 6 continue midodrine at his current dose of 10 mg 3 times daily. This could be adjusted by Dr. Foster as an outpatient if needed. (2) Parkinson disease: Continue Sinemet at his current dose. Patient is followed by Dr. Kemp in neurology clinic. Dose has been recently adjusted but patient has not started this new dose. 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 Dose could be adjusted if needed by Dr. Foster as an outpatient. Discussed with dosing to avoid supine hypertension. (4) CKD (chronic kidney disease) stage 3, GFR 30-59 ml/min: - Acute on chronic renal disease. Plan - MRI of the brain without contrast looking for structural etiology for his symptoms. -MRA study without contrast of the head and neck looking for vascular stenosis -EEG routine looking for seizure activity since patient has risk factors for seizure with prior bleed/surgical decompression/history of Parkinson's disease/old lacunar subcortical infarct - Continue midodrine at the current dose 10 mg 3 times daily. Consider adjusting the dose to 5 mg p.o. 3 times daily if bradycardia or renal insufficiency is a concern. Patient follows up with Dr. Foster as an outpatient -Cardiac workup in place to include echocardiogram and troponins to rule out cardiac etiology of unresponsive state. -Neurology will follow this patient while in hospital and also follow-up on results of the testing. Thank you for the teleneurology consultation if there are any further question issues or concerns please contact me. Total time spent: 105 minutes (32 minutes audio video call, 51 minutes reviewing brain imaging studies/laboratory/medication/patient EHR records/diagnostic studies. Spent 22 minutes phone conversation with patient's discussing care Telehealth Consultation Telehealth Information Telehealth Information: I performed this visit using a real-time telehealth connection between my loca tion and the patients originating location ([facility]). After connecting through interactive tele-video, patient was identified by name and date of and/or wristband check.Patient (or authorized healthcare inventory representative) was informed that this was a telemedicine visit and it was being conducted confidentially over secure lines. My office door was closed and no one else was present in the room with me.Patient (or authorized healthcare inventory representative) provided consent to proceed with the visit, expressed an understanding of privacy and security of the telemedicine visit, and gave permission to have a hospital inventory representative in the room in order to assist with the visit and to conduct portions of the visit, as needed. I informed the patient (or authorized healthcare inventory representative) that I reviewed their record and presented the opportunity for them to ask any questions regarding the visit today. The patient agreed to participate. History of Present Illness Reason for Consultation: Unresponsive episode Requesting Physician: Dr. Barby Miranda Attending Physician: Barby Miranda MD History of Present Illness 85-year-old gentleman who presents to [facility] for episode of unresponsiveness witnessed by his Shayla. Patient does not have recollection of the event additional details of the episode was obtained separately with . witnessed the event and states that Nicola was complaining of excruciating back pain described lower neck area shoulders. He told her that he had pain then noted a gurgling sound or growling sound and noticed that his breathing changed he was not responsive denies any falls but noticed that his left eye was droopy. 911 was called he was getting better as EMS presented. Total episode lasted 5 to 10 minutes there was no jerking activity. He did not have recollection of the event. She does not recall whether the blood pressure was low. She does notice that his blood pressure seems to fluctuate in he is currently on midodrine 10 mg 3 times daily for orthostatic hypotension. Patient has a history of Parkinson's disease followed by Dr. Kemp in neurology clinic who saw him recently. There was plans to adjust the Sinemet but he has not done this as of yet. denies any other symptoms similar to this. She states that his baseline is usually bedridden or in a wheelchair. He does walk but not much and might take some steps. He has a hospital bed at home and also has a power chair which he uses to get around. With regards to his memory this is considered" good". He does struggle a little recently with not remembering some dates but overall no big impairment. She does relate to having staring into space sometimes. She states that he hit his head in June and did have a brain bleed with evacuation. This was in July 2019. The hematoma was a resultant of a fall. After this incident he was left with left arm contractions he might feel some paresthesias on the left side but overall no other deficits. He has had headaches off and on he does take Tylenol but does not take more than 2/day. He denies being on NSAIDs. Today during the video call nurse reports no facial symmetry and no new episode of unresponsiveness. He was obtaining his echocardiogram while I was performing this interview. CT scan of the head was reviewed and shows no areas of bleed. There is atrophy noted mostly frontal and slight temporal atrophy. There is calcification of the choroid plexus. I did not see any areas of acute intracranial or intrap arenchymal involvement. Allergies Allergy/AdvReac Type Severity Reaction Status Date / Time Sulfa (Sulfonamide Allergy Mild itchy Verified 05/26/25 11:03 Antibiotics) alfuzosin [From Uroxatral] Allergy Unknown PT NOT SURE Verified 05/26/25 11:03 clindamycin Allergy Unknown PT NOT SURE Verified 05/26/25 11:03 aspirin AdvReac Mild upset Verified 05/26/25 11:03 stomach levofloxacin [From Levaquin] AdvReac Mild affected Verified 05/26/25 11:03 tendons in wrist Quinolones AdvReac Mild myalgia Verified 05/26/25 11:03 daptomycin Allergy Mild Rash Uncoded 05/26/25 11:03 ertapenem Allergy Mild Rash Uncoded 05/26/25 11:03 Home Medications Medication Instructions Recorded Confirmed Type diclofenac sodium 1 % topical gel 0 g topical UD PRN Knee Pain 08/17/18 06/28/25 History (Voltaren) finasteride 5 mg tablet 5 mg PO QAM 07/05/19 06/28/25 History prednisone 5 mg tablet 5 mg PO QAM 08/22/19 06/28/25 History methenamine hippurate 1 gram tablet 1 gm PO HS #30 tabs 09/17/19 06/28/25 Rx acetaminophen 500 mg tablet 1,000 mg PO UD PRN Pain 01/09/20 06/28/25 History celecoxib 200 mg capsule (Celebrex) 200 mg PO QAM 07/09/21 06/28/25 History peg 400-propylene glycol 0.4 %-0.3 0 drp ophthalmic (eye) BID 07/09/21 06/28/25 History % eye drops sennosides 8.6 mg-docusate sodium 0 tab-cap PO DAILY PRN constipation 12/27/21 06/28/25 History 50 mg tablet (Colace 2-In-1) Wheelchair (Powered) (Power #1 ea 08/16/22 05/26/25 Rx Wheelchair) cyanocobalamin (vitamin B-12) 500 1,000 mcg (2 x 500 mcg) PO QAM #0 04/25/24 06/28/25 Rx mcg tablet tabs pantoprazole 40 mg tablet,delayed 40 mg PO QAM #0 tabs 04/25/24 06/28/25 Rx release vibegron 75 mg tablet (Gemtesa) 75 mg PO QPM #90 tabs 09/16/24 06/28/25 Rx midodrine 2.5 mg tablet 10 mg PO TID 11/18/24 06/28/25 History pimavanserin 10 mg tablet 10 mg PO HS #30 tabs 02/14/25 06/28/25 Rx (Nuplazid) carbidopa ER 50 mg-levodopa 200 mg 1 tab PO TID #270 tabs 06/25/25 06/28/25 Rx tablet,extended release L.acidop,casei,lactis,rham-B.lact,elba 0 cap PO DAILY 06/28/25 06/28/25 History 625 mg (10 billion cell) capsule (Advanced Probiotic) carbidopa 25 mg-levodopa 250 mg 1.5 tab PO TID 06/28/25 06/28/25 History tablet carboxymethylcellulose sodium 0.5 1 drp ophthalmic (eye) QID 06/28/25 06/28/25 History % eye drops cholecalciferol (vitamin D3) 25 2,000 mcg PO DAILY 06/28/25 06/28/25 History mcg (1,000 unit) tablet docusate sodium 100 mg capsule 100 mg PO DAILY 06/28/25 06/28/25 History famotidine 20 mg tablet 20 mg PO HS 06/28/25 06/28/25 History gabapentin 100 mg capsule 100 mg PO HS 06/28/25 06/28/25 History lidocaine 5 % topical patch 1 patch topical DAILY PRN Pain 06/28/25 06/28/25 History ondansetron 8 mg disintegrating 0 mg PO Q8H PRN nausea and vomiting 06/28/25 06/28/25 History tablet polyethylene glycol 3350 17 17 g PO DAILY PRN Constipation 06/28/25 06/28/25 History gram/dose oral powder (Miralax) tamsulosin 0.4 mg capsule 0 mg PO DAILY 06/28/25 06/28/25 History tramadol 50 mg tablet 50 mg PO Q6H PRN Pain 06/28/25 06/28/25 History Patient History Medical History Left inguinal hernia Nightmares Hallucinations Balanitis Severe sepsis Arthritis Hallucination mild>seeing bugs (reason for nuplazid) Restless legs Pacemaker (2019) Dr. Foster cards>gets checked monthly remote ([facility]?) Left knee DJD Right knee DJD Barretts esophagus Hydrocele Dysphonia Abnormal ankle brachial index (FATUMA) Bifascicular block Chronic since at least 2017 Sinus node dysfunction S/p pacemaker placed- had 3 second pause found on loop recorder History of subdural hematoma 2017--d/t fall and was on Eliquis Degenerative disc disease History of DVT of lower extremity approx 10 YR AGO right leg--happened during surgical procedure, was on a blood thinner at that time Atrial flutter with rapid ventricular response ? dx>pacemaker implanted for irregular hr GERD without esophagitis Insomnia Surgical History H/O repair of left rotator cuff History of prostate surgery History of cataract surgery rt/left History of cardiac cath "long time ago/no stents" History of lumbar surgery bone spur removal Status post evacuation of subdural hematoma 08/2018 @ [facility] [place] from [place] History of hand surgery left hand--fingers ricardo d/t Parkinson's History of carpal tunnel release of both wrists History of total left hip replacement Hx of vasectomy History of bowel resection 2014--12 inches d/t diverticulitis @ [facility] [place] History of inguinal hernia repair History of colonoscopy with polypectomy History of esophagogastroduodenoscopy (EGD) History of tooth extraction Hx of fusion of cervical spine VERY limited ROM>more than 3 levels fused (11+ years ago) Family History Mother Myocardial infarction Colorectal cancer Other Heart problem No family history of adverse response to anesthesia Denies family history of Ovarian cancer Prostate cancer Breast cancer Lung cancer Social History Smoking Status: Former smoker Tobacco Type: Cigarettes Age Started Using Tobacco: 21; Age Quit Using Tobacco: 25; packs per day: 1; Cigarettes Per Day: 50+ YR AGO; Second Hand Exposure: No; Do You Dip or Chew Tobacco: No; Hx Alcohol Use: No Hx Substance Use: No Preferred Language: [place] Communication Ability: Effective Visual Impairment: Limited Hearing Ability: Normal Fund Development Manager Required: No Beliefs That Will Affect Care: None marital status: Current Living Situation: Spouse current occupational status: retired How many Children do You have: 4 Feels Safe at Home: Yes Childhood Exposure to Second-Hand Smoke: Yes Diet: regular caffeine: Yes during the past year weight has: remained stable Dental Care, Regularly: Yes Physical Activity Frequency: 3-4 Times per Week Physical Activity Frequency Comment: chair exercises Seatbelt Use: always Sunscreen Use: No (not in the sun) Do you think of yourself as: straight/heterosexual Assistive Devices: Denture - Upper, Glasses, Wheelchair and Other Review of Systems Other than what has been stated in the HPI he denies any other complaints. He does admit to some headaches denies any vision disturbances. There is no facial symmetry. Physical Exam He is alert and oriented x 3. He was able to state his name and last name also month and year he was able to tell me where he was.. Speech is fluent and nondysarthric. He comprehends fairly well. He does not have recollection of the unresponsive episode but does have some recollection of past events otherwise memory was intact. I did not see any abnormal movements such as myoclonic jerks or tremors. His left arm was contracted. He was examined in his hospital bed. He had good attention and concentration there was no evidence of dysarthria I did not see any expressive or receptive aphasia he denied any visual field deficit. Nursing staff in the room report no evident lower facial droop he was not able to stand and this was not persuaded given safety reasons. Results & Data Vital Signs (Past 12 Hours) Vital Signs Temp Pulse Pulse Resp BP BP Pulse Ox 06/29/25 08:43 36.8 C 63 17 120/78 96 06/29/25 07:36 78 06/29/25 04:00 36.7 C 65 18 108/67 95 06/29/25 00:04 36.3 C L 79 18 116/74 96 06/28/25 22:59 06/28/25 22:49 36.8 C 73 18 175/108 H 96 O2 Del Method 06/29/25 08:43 Room Air 06/29/25 07:36 06/29/25 04:00 Room Air 06/29/25 00:04 Room Air 06/28/25 22:59 Room Air 06/28/25 22:49 Room Air Diagnostic Findings CT scan of the head was performed and shows frontal temporal atrophy noted calcification of the choroid plexus there is an old right subcortical lacunar stroke. There is no bleed noted Telehealth Telehealth Options: 2-way audio and video After establishing a telemedicine visit, patient was: Patient was verified with two unique identifiers, Patient/authorized rep acknowledged consent and understanding and Gave permission to continue telehealth session (2) Parkinson disease Dyskinesia presence: without dyskinesia Fluctuating manifestations: without fluctuating manifestations Qualified Code(s): G20.A1 - Parkinson's disease without dyskinesia, without mention of fluctuations
[2025-06-29] MEDS: CARBIDOPA/LEVODOPA 50/200MG EXT REL TAB PO SCH (13:49)
--- NOTE | 2025-06-29 15:18 | Hospitalist Progress Note ---
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: (7) CKD (chronic kidney disease) stage 3, GFR 30-59 ml/min: Plan Unresponsive episode - cont tele monitoring - neuro checks - spoke with neurology- rec MRI brain, MRA head/ neck, and EEG - no events on Tele - ECHO: EF 50-55%, bubble study neg, mild concentric LVH - MRI / MRA will be done on Monday given PPM Elevated troponin - trended flat - EKG shows paced rhythm - ECHO reviewed Parkinson's disease - cont home meds - pt did have his ER sinemet increased though he has not started this yet , per discussion with neurology, increased ER sinemet to TID - cont midodrine - cont gabapentin BPH - prn straight cath - UA abnormal, UCx pending - cont finasteride and tamsulosin - cont methenamine hippurate JM / CKD - pt uses NSAIDs at home - hold for now - gentle hydration - trend at this time DVT ppx: SCDs Code status: Full code- pt does not want to be vent dependent if no meaningful recovery is made 06/28: at bedside Admission and Anticipated Discharge Date Admission Date: June 28, 2025 Subjective Pt overall doing well States he didn't sleep well last night Review of Systems Review of Systems: Comprehensive ROS completed and is otherwise negative. Physical Exam Physical Exam: Gen: no acute distress, lying in bed comfortable HEENT: NC/AT, MMM Lungs: nonlabored breathing, CTAB CVS: s1s2nl, RRR Abd: nl bowel sounds, soft, NT / ND : no andrews Ext: no edema Neuro: AAOx3 slow movement noted as well as some rigidity in the extremities Psych: calm, cooperative Results & Data Results & Data Vital Signs (Past 12 Hours) Vital Signs Temp Pulse Pulse Resp BP Pulse Ox O2 Del Method 06/29/25 12:37 36.8 C 77 17 111/66 94 Room Air 06/29/25 08:43 36.8 C 63 17 120/78 96 Room Air 06/29/25 07:36 78 06/29/25 07:30 Room Air 06/29/25 04:00 36.7 C 65 18 108/67 95 Room Air PG Care Time/CCT Total # of Minutes Spent Total Time Spent with Patient: Total time spent is greater than 50% in coordination of care (as documented) at patient's floor/unit and/or counseling patient: Coding Level of Care Code 62012 SUB INP/OBS CARE 3/50MIN Diagnoses Acute kidney injury superimposed on chronic kidney disease N17.9; N18.9 Elevated troponin R79.89 Unresponsive episode R40.4 Parkinson's disease without dyskinesia or fluctuating manifestations G20.A1 Dyskinesia presence: without dyskinesia Fluctuating manifestations: without fluctuating manifestations Dementia in Parkinson's disease G20; F02.80 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
--- NOTE | 2025-06-30 08:08 | Electroencephalogram ---
EEG Procedure Note Date of Service June 30, 2025 Start / End Times Start Time: 6:53 AM End Time: 7:13 AM Referring Physician Ruben Dior History Seizure-like episode Home Medication List Medication Instructions Recorded Confirmed Type diclofenac sodium 1 % topical gel 0 g topical UD PRN Knee Pain 08/17/18 06/28/25 History (Voltaren) finasteride 5 mg tablet 5 mg PO QAM 07/05/19 06/28/25 History prednisone 5 mg tablet 5 mg PO QAM 08/22/19 06/28/25 History methenamine hippurate 1 gram tablet 1 gm PO HS #30 tabs 09/17/19 06/28/25 Rx acetaminophen 500 mg tablet 1,000 mg PO UD PRN Pain 01/09/20 06/28/25 History celecoxib 200 mg capsule (Celebrex) 200 mg PO QAM 07/09/21 06/28/25 History peg 400-propylene glycol 0.4 %-0.3 0 drp ophthalmic (eye) BID 07/09/21 06/28/25 History % eye drops sennosides 8.6 mg-docusate sodium 0 tab-cap PO DAILY PRN constipation 12/27/21 06/28/25 History 50 mg tablet (Colace 2-In-1) Wheelchair (Powered) (Power #1 ea 08/16/22 05/26/25 Rx Wheelchair) cyanocobalamin (vitamin B-12) 500 1,000 mcg (2 x 500 mcg) PO QAM #0 04/25/24 06/28/25 Rx mcg tablet tabs pantoprazole 40 mg tablet,delayed 40 mg PO QAM #0 tabs 04/25/24 06/28/25 Rx release vibegron 75 mg tablet (Gemtesa) 75 mg PO QPM #90 tabs 09/16/24 06/28/25 Rx midodrine 2.5 mg tablet 10 mg PO TID 11/18/24 06/28/25 History pimavanserin 10 mg tablet 10 mg PO HS #30 tabs 02/14/25 06/28/25 Rx (Nuplazid) carbidopa ER 50 mg-levodopa 200 mg 1 tab PO TID #270 tabs 06/25/25 06/28/25 Rx tablet,extended release L.acidop,casei,lactis,rham-B.lact,elba 0 cap PO DAILY 06/28/25 06/28/25 History 625 mg (10 billion cell) capsule (Advanced Probiotic) carbidopa 25 mg-levodopa 250 mg 1.5 tab PO TID 06/28/25 06/28/25 History tablet carboxymethylcellulose sodium 0.5 1 drp ophthalmic (eye) QID 06/28/25 06/28/25 History % eye drops cholecalciferol (vitamin D3) 25 2,000 mcg PO DAILY 06/28/25 06/28/25 History mcg (1,000 unit) tablet docusate sodium 100 mg capsule 100 mg PO DAILY 06/28/25 06/28/25 History famotidine 20 mg tablet 20 mg PO HS 06/28/25 06/28/25 History gabapentin 100 mg capsule 100 mg PO HS 06/28/25 06/28/25 History lidocaine 5 % topical patch 1 patch topical DAILY PRN Pain 06/28/25 06/28/25 History ondansetron 8 mg disintegrating 0 mg PO Q8H PRN nausea and vomiting 06/28/25 06/28/25 History tablet polyethylene glycol 3350 17 17 g PO DAILY PRN Constipation 06/28/25 06/28/25 His tory gram/dose oral powder (Miralax) tamsulosin 0.4 mg capsule 0 mg PO DAILY 06/28/25 06/28/25 History tramadol 50 mg tablet 50 mg PO Q6H PRN Pain 06/28/25 06/28/25 History Inpatient Medication List Artificial Tears (Artificial Tears) 1 drops OP QID [facility] Stop: 07/28/25 19:14 Last Admin: 06/29/25 22:49 Dose: Not Given Documented By: Admin: 06/29/25 17:23 Dose: Not Given Documented By: Admin: 06/29/25 12:45 Dose: 1 drops Documented By: Admin: 06/29/25 08:42 Dose: 1 drops Documented By: Admin: 06/28/25 22:48 Dose: Not Given Documented By: Admin: 06/28/25 22:47 Dose: Not Given Documented By: RADHA Carbidopa/Levodopa (Carbidopa/Levodopa 25-250 1 Ea Tab) 1.5 tab PO TID@0900, 1300,1700 [facility] Stop: 07/28/25 20:59 Last Admin: 06/29/25 17:23 Dose: 1.5 tab Documented By: Admin: 06/29/25 13:50 Dose: 1.5 tab Documented By: Admin: 06/29/25 08:38 Dose: 1.5 tab Documented By: DEANN Carbidopa/Levodopa (Carbidopa/Levodopa 25-250 1 Ea Tab) 1 tab PO HS [facility] Stop: 07/28/25 20:59 Last Admin: 06/29/25 22:45 Dose: 1 tab Documented By: Admin: 06/28/25 22:06 Dose: 1 tab Documented By: RADHA Carbidopa/Levodopa (Carbidopa/Levodopa 50/200mg Ext Rel Tab) 1 tab PO TID [facility] Stop: 07/29/25 13:59 Last Admin: 06/29/25 22:44 Dose: 1 tab Documented By: Admin: 06/29/25 13:49 Dose: 1 tab Documented By: DEANN Cyanocobalamin (Cyanocobalamin (B-12) 500 Mcg Tablet) 1,000 mcg PO QAM [facility] Stop: 07/29/25 08:59 Last Admin: 06/29/25 08:38 Dose: 1,000 mcg Documented By: DEANN Docusate Sodium (Docusate Sodium 100 Mg Cap) 100 mg PO DAILY [facility] Stop: 07/29/25 08:59 Last Admin: 06/29/25 08:43 Dose: 100 mg Documented By: DEANN Famotidine (Famotidine 20 Mg Tab) 20 mg PO [facility] Stop: 07/28/25 20:59 Last Admin: 06/29/25 22:44 Dose: 20 mg Documented By: Admin: 06/28/25 22:22 Dose: 20 mg Documented By: RADHA Finasteride (Finasteride 5 Mg Tab) 5 mg PO QAM [facility] Stop: 07/29/25 08:59 Last Admin: 06/29/25 08:39 Dose: 5 mg Documented By: DEANN Gabapentin (Gabapentin 100 Mg Cap) 100 mg PO HS [facility] Stop: 07/28/25 20:59 Last Admin: 06/29/25 22:47 Dose: 100 mg Documented By: Admin: 06/28/25 22:09 Dose: 100 mg Documented By: RADHA Methenamine Hippurate (Methenamine Hippurate 1 Gm Tab) 1 gm PO HS [facility] Stop: 07/08/25 20:59 Last Admin: 06/29/25 22:46 Dose: 1 gm Documented By: Admin: 06/28/25 22:17 Dose: 1 gm Documented By: RADHA Midodrine (Midodrine Hcl 10 Mg Tab) 10 mg PO [id number] [facility] Stop: 07/29/25 07:59 Last Admin: 06/29/25 15:12 Dose: 10 mg Documented By: Admin: 06/29/25 12:45 Dose: 10 mg Documented By: Admin: 06/29/25 08:38 Dose: 10 mg Documented By: DEANN Miscellaneous (Remove Lidoderm Patch) 1 each N/A DAILY@2100 [facility] Stop: 07/28/25 20:59 Last Admin: 06/29/25 22:48 Dose: Not Given Documented By: Admin: 06/28/25 22:16 Dose: Not Given Documented By: RADHA Pantoprazole Sodium (Pantoprazole 40 Mg Tab) 40 mg PO QA [facility] Stop: 07/29/25 08:59 Last Admin: 06/29/25 09:47 Dose: Not Given Documented By: DEANN Pimavanserin (Pimavanserin Tartrate) 1 each PO [facility] Stop: 07/28/25 20:59 Last Admin: 06/29/25 22:45 Dose: 1 each Documented By: Admin: 06/28/25 22:05 Dose: 1 each Documented By: RADHA Prednisone (Prednisone 5 Mg Tab) 5 mg PO QA [facility] Stop: 07/29/25 08:59 Last Admin: 06/29/25 08:39 Dose: 5 mg Documented By: DEANN Tamsulosin HCl (Tamsulosin Hcl 0.4 Mg Cap) 0.4 mg PO DAILY [facility] Stop: 07/29/25 08:59 Last Admin: 06/29/25 08:39 Dose: 0.4 mg Documented By: DEANN Vibegron (Vibegron 75 Mg Tab) 75 mg PO QPM [facility] Stop: 07/28/25 20:59 Last Admin: 06/29/25 22:47 Dose: 75 mg Documented By: Admin: 06/28/25 22:10 Dose: 75 mg Documented By: RADHA Vitamin D (Cholecalciferol 25 Mcg (1000 Units) Tab) 50 mcg PO DAILY [facility] Stop: 07/29/25 08:59 Last Admin: 06/29/25 08:38 Dose: 50 mcg Documented By: DEANN Discontinued Medications Carbidopa/Levodopa (Carbidopa/Levodopa 50/200mg Ext Rel Tab) 1 tab PO BID [facility] Stop: 07/28/25 20:59 Last Admin: 06/29/25 08:37 Dose: 1 tab Documented By: Admin: 06/28/25 22:05 Dose: 1 tab Documented By: RADHA Parenteral Electrolytes (Plasma-Lyte A Ph 7.4) 1,000 mls @ 80 mls/hr IV .[id number] [facility] Stop: 06/29/25 01:44 Last Infusion: 06/29/25 08:52 Dose: Infused Documented By: Admin: 06/28/25 22:30 Dose: 80 mls/hr Documented By: RADHA Description This is a 21 electrode EEG with a single channel dedicated to limited EKG. The electrodes were placed in accordance with the International 10-20 system. There is a posterior dominant rhythm of 8 to 9 Hz which is symmetrically distributed and attenuates with eye opening. There is a normal anterior to posterior organization. Photic stimulation is unremarkable. Hyperventilation is not performed. There is a symmetric frontal beta rhythm. There is amplitude asymmetry, greater amplitude is observed over the left frontoparietal region. There is admixed generalized polymorphic theta activity. There are no epileptiform abnormalities. Interpretation Abnormal awake/drowsy EEG with evidence of a breach rhythm over the left frontoparietal region. No epileptiform abnormalities. Clinical Correlation The above findings are consistent with patient's history of craniotomy. [facility] EEG Procedure Codes Indication for Procedure (1) Unresponsive episode: (2) Seizure-like activity: Neurology Neurology: 01416 EEG include record awake & drowsy
[2025-06-30 10:31] LABS: Hematocrit (blood only) 39.0 % (42.0-52.0); Hemoglobin 13.0 g/dl (14.0-18.0); Mean Corpuscular Hemoglobin 32.8 pg (25.0-34.0); Mean Corpuscular Volume 98.5 fL (80.0-100.0); Platelet Count 162 K/uL (130-400); RDW Standard Deviation 47.4 fL (36.4-46.3); Red Blood Count 3.96 M/uL (4.70-6.10); White Blood Count 6.56 K/ul (4.8-10.8)
[2025-06-30 10:47] LABS: Anion Gap 9.0 (3-11); Blood Urea Nitrogen 48.0 mg/dl (6-23); Calcium 9.5 mg/dl (8.6-10.3); Carbon Dioxide 23.0 mmol/L (21-32); Chloride 104.0 mmol/L (98-107); Creatinine Clr Calc Pharmacy 27.5 ml/min; Glucose 103.0 mg/dl (70-99(Fasting)); Magnesium 2.0 mg/dl (1.7-2.4); Potassium 4.3 mmol/L (3.5-5.1); Sodium 136.0 mmol/L (136-145)
--- NOTE | 2025-06-30 18:35 | Hospitalist Progress Note ---
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: (7) CKD (chronic kidney disease) stage 3, GFR 30-59 ml/min: Plan Unresponsive episode - cont tele monitoring - neuro checks - spoke with neurology- rec MRI brain, MRA head/ neck, and EEG - no events on Tele - ECHO: EF 50-55%, bubble study neg, mild concentric LVH - MRI / MRA will be done on Monday given PPM - EEG neg for epileptiform abnormalities, findings are consistent with pt's h/o craniotomy Elevated troponin - trended flat - EKG shows paced rhythm - ECHO reviewed Parkinson's disease - cont home meds - pt did have his ER sinemet increased though he has not started this yet , per discussion with neurology, increased ER sinemet to TID - cont midodrine - cont gabapentin BPH - prn straight cath - UA abnormal, UCx neg for pathogenic organisms - cont finasteride and tamsulosin - cont methenamine hippurate JM / CKD - pt uses NSAIDs at home - hold for now - gentle hydration - trend at this time DVT ppx: SCDs Code status: Full code- pt does not want to be vent dependent if no meaningful recovery is made Dispo: tentative d/c on 07/01 if MRI / MRA neg 06/28: at bedside 06/30: updated Admission and Anticipated Discharge Date Admission Date: June 30, 2025 Subjective pt not offering any new complaints Review of Systems Review of Systems: Comprehensive ROS completed and is otherwise negative. Physical Exam Physical Exam: Gen: no acute distress, lying in bed comfortable HEENT: NC/AT, MMM Lungs: nonlabored breathing, CTAB CVS: s1s2nl, RRR Abd: nl bowel sounds, soft, NT / ND : no andrews Ext: no edema Neuro: AAOx3 slow movement noted as well as some rigidity in the extremities Psych: calm, cooperative Results & Data Results & Data Vital Signs (Past 12 Hours) Vital Signs Temp Pulse Resp BP Pulse Ox O2 Del Method 06/30/25 15:34 36.7 C 60 18 99/64 L 94 Room Air 06/30/25 11:47 36.8 C 72 18 100/66 96 Room Air 06/30/25 09:30 Room Air 06/30/25 07:36 36.8 C 63 18 129/78 98 Room Air PG Care Time/CCT Total # of Minutes Spent Total Time Spent with Patient: Total time spent is greater than 50% in coordination of care (as documented) at patient's floor/unit and/or counseling patient: Coding Level of Care Code 95743 SUB INP/OBS CARE 2/35MIN Diagnoses Acute kidney injury superimposed on chronic kidney disease N17.9; N18.9 Elevated troponin R79.89 Unresponsive episode R40.4 Parkinson's disease without dyskinesia or fluctuating manifestations G20.A1 Dyskinesia presence: without dyskinesia Fluctuating manifestations: without fluctuating manifestations Dementia in Parkinson's disease G20; F02.80 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
[2025-06-30] MEDS: ALBUMIN 25% 25 GM/100 ML VIAL IV ONE (20:10)
[2025-06-30 23:20] VITALS: RESP 16
[2025-07-01 03:00] VITALS: TEMP 97.9
[2025-07-01 07:48] VITALS: BP 102/64; O2SAT 94
--- NOTE | 2025-07-01 13:45 | Magnetic Resonance Report ---
MR angio head wo con CLINICAL HISTORY: unresponsive episode COMPARISON STUDY: None FINDINGS: Distal internal carotid and vertebral arteries are patent. Basilar artery is patent. Anteri or, middle, and posterior cerebral arteries are patent bilaterally. No intracranial aneurysm seen. IMPRESSION: No significant arterial narrowing or occlusion seen at the brain. ACT 112: Negative or not required by law. Electronically signed by: Minh Villa M.D. 07/01/2025 1:43 PM
--- NOTE | 2025-07-01 14:03 | Magnetic Resonance Report ---
MR angio neck wo con HISTORY: 85 years-old Male unresponsive episode acute stroke like symptoms COMPARISON: Brain MR of same day, head CT 06/28/2025 TECHNIQUE: MRA of the neck was obtained without IV contrast utilizing 3-D [id number] sequencing w ith MIP reformats. All measurements were obtained according to NASCET criteria. FINDINGS: Motion degraded exam. Mild mucosal thickening of the para nasal sinuses incidentally noted. Postopera tive changes of the left calvarium. The common carotid arteries appear patent. Mild stenosis at the origin of the bilateral internal mcintosh tid arteries, likely secondary to atherosclerosis. Left subclavian pacer. The imaged bilateral verteb ral arteries appear patent. The vertebral artery origins are not well visualized. No aneurysm, dissec tion, high-grade stenosis or arterial occlusion identified. IMPRESSION: Unremarkable MRA of the neck. ACT 112: Negative or not required by law. The above report was generated using voice recognition software. It may contain grammatical, syntax o r spelling errors. Electronically signed by: Ruben Florentino M.D. 07/01/2025 2:02 PM
--- NOTE | 2025-07-01 14:51 | Magnetic Resonance Report ---
MRI OF THE BRAIN WITHOUT IV CONTRAST CLINICAL HISTORY: Unresponsive episode with lightheadedness and dizziness. COMPARISON STUDY: MRI of the brain January 09, 2020. Head CT June 28, 2025. TECHNIQUE: MRI of the brain was performed utilizing various T1 and T2-weighted sequences in the axial , sagittal, and coronal planes. IV contrast was not administered for this examination. FINDINGS: There are no foci of restricted diffusion to suggest acute infarct. No acute intracranial h emorrhage, midline shift or mass effect is present. Ventricular system is unremarkable. Basal cistern s are patent. There are no extra-axial collections. Prominence of the extra-axial spaces is similar t o prior exams and due to atrophy. 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 No intracranial m asses are identified on unenhanced exam. The appearance of the left sided craniotomy is unchanged. Th ere is mild ethmoid and right maxillary sinus mucosal thickening. IMPRESSION: 1. No acute intracranial findings. 2. 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 ACT 112: Negative or not required by law. Electronically signed by: Dileep Michelle M.D. 07/01/2025 2:49 PM
--- NOTE | 2025-07-01 16:44 | Discharge Summary ---
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: (7) CKD (chronic kidney disease) stage 3, GFR 30-59 ml/min: Plan Unresponsive episode - cont tele monitoring - neuro checks - no events on Tele - ECHO: EF 50-55%, bubble study neg, mild concentric LVH - MRI / MRA neg - EEG neg for epileptiform abnormalities, findings are consistent with pt's h/o craniotomy - spoke with neurology- cleared pt for discharge Elevated troponin - trended flat - EKG shows paced rhythm - ECHO reviewed Parkinson's disease - cont home meds - cont ER sinemet to TID and cont short acting as well - cont midodrine - cont gabapentin BPH - prn straight cath - UA abnormal, UCx neg for pathogenic organisms - cont finasteride and tamsulosin - cont methenamine hippurate JM / CKD - - mild increase as pt was not straight cath-ed over 24-hrs but is improving - he also has retention due to not standing to urinate, discussed with and she would like to take him home as he urinates better at home while standing - pt uses NSAIDs at home - discontinued on discharge - encourage PO hydration - repeat BMP in about 3-5 days after discharge Code status: Full code- pt does not want to be vent dependent if no meaningful recovery is made Dispo: d/c home, pt's declined home health 06/28: at bedside 06/30: updated Admission HPI Per Admitting Provider 85 yr old M with PMHx of Parkinson's disease complicated by orthostatic hypotension, wheelchair dependent at baseline, CKD III, BPH presents to the hospital for the evaluation of unresponsive episode. who was at bedside describes it as pt not responding to her, his left eye closed, left facial drooping. The whole episode lasted about 5 mins and occurred during breakfast. EMS came and brought pt to the hospital. His workup has so far been unremarkable. Pt states that this could be due to his orthostatic hypotension. He is currently otherwise asymptomatic Discharge Exam Gen: no acute distress, lying in bed comfortable HEENT: NC/AT, MMM Lungs: nonlabored breathing, CTAB CVS: s1s2nl, RRR Abd: nl bowel sounds, soft, NT / ND : no andrews Ext: no edema Neuro: AAOx3 slow movement noted as well as some rigidity in the extremities Psych: calm, cooperative Discharge Plan Discharge Items Patient Disposition: Home - Self-Care Reason For Visit: UNRESPONSIVE EPISODE Discharge Diagnosis: Unresponsive episode Condition on Discharge: Fair Activity: Resume your previous activity Non-emergency contact: Primary Care Provider and Neurologist Call non-emergency contact if: you have any medication questions and your symptoms worsen Follow-up/Referrals: [facility] [Provider Group] (for further evaluation of bladder if needed ) Mehrdad Avalos DO [Primary Care Provider] - Diet: Regular Addtl Attending Provider Instructions: You were admitted for unresponsive episode. You were evaluated by neurology as there was a concern for stroke-like symptom vs seizures. Your workup has been negative. It is possible you might have had blood pressure changes due to your orthostatic hypotension. Continue midodrine at home. You were noted to have mild kidney abnormalities. Stay hydrated at home and avoid NSAIDs. You will need repeat kidney function test in about 3-5 days. Please have this ordered by your PCP. You are medically stable for discharge. You will need to follow up with your primary care doctor in about 7 to 10 days. Please also follow up with your neurologist. It was a pleasure being a part of your medical care team during your stay at [facility]. Pending Studies at Discharge: No Stand-Alone Forms: [facility], Smoking Cessation Medications and DC Order Prescriptions: Continued methenamine hippurate 1 gram tablet 1 gm PO HS Qty: 30 3RF Gemtesa 75 mg tablet 75 mg PO QPM Qty: 90 3RF Nuplazid 10 mg tablet 10 mg PO HS Qty: 30 5RF gabapentin 100 mg capsule 100 mg PO HS Qty: 90 3RF finasteride 5 mg tablet 5 mg PO QAM prednisone 5 mg tablet 5 mg PO QAM sennosides-docusate sodium [Colace 2-In-1] 8.6-50 mg tablet 0 tab-cap PO DAILY PRN (Reason: constipation) Patient Comments: 06/28- [facility] to [facility] peg 400-propylene glycol 0.4-0.3 % drops 0 drp ophthalmic (eye) BID Patient Comments: 06/28- Not [facility] unable to verify (DME) Power Wheelchair Device See Rx Instructions .Route Qty: 1 0RF Rx Instructions: As directed carbidopa-levodopa 50-200 mg tablet extended release 1 tab PO TID Qty: 270 3RF acetaminophen 500 mg Tablet 1,000 mg PO UD PRN (Reason: Pain) tramadol 50 mg Tablet 50 mg PO Q6H PRN (Reason: Pain) famotidine 20 mg Tablet 20 mg PO HS carboxymethylcellulose sodium 0.5 % Drops 1 drp OPHTHALMIC (EYE) QID lidocaine 5 % Adhesive Patch,Medicated 1 patch TOPICAL DAILY PRN (Reason: Pain) Rx Instructions: leave on most painful area for up to 12 hrs docusate sodium 100 mg Capsule 100 mg PO DAILY polyethylene glycol 3350 [Miralax] 17 gram/dose Powder 17 g PO DAILY PRN (Reason: Constipation) cholecalciferol (vitamin D3) 25 mcg (1,000 unit) Tablet 2,000 mcg PO DAILY carbidopa-levodopa 25-250 mg tablet 1.5 tab PO TID Rx Instructions: take 1.5 tabs TID and take one at HS ondansetron 8 mg tablet,disintegrating 0 mg PO Q8H PRN (Reason: nausea and vomiting) Patient Comments: 06/28- [facility] unable to verify tamsulosin 0.4 mg capsule 0 mg PO DAILY Patient Comments: 06/28- Not on faxed list [facility] unable to verify Advanced Probiotic 625 mg (10 billion cell) capsule 0 cap PO DAILY Patient Comments: 06/28- Not on [facility]ed list [facility] unable to verify cyanocobalamin (vitamin B-12) 500 mcg Tablet 1,000 mcg PO QAM Qty: 0 0RF pantoprazole 40 mg Tablet,Delayed Release (Dr/Ec) 40 mg PO QAM Qty: 0 0RF midodrine 2.5 mg tablet 10 mg PO TID Discontinued celecoxib [Celebrex] 200 mg capsule 200 mg PO QAM diclofenac sodium [Voltaren] 1 % Gel 0 g TOPICAL UD PRN (Reason: Knee Pain) Patient Comments: 06/28- Not [facility] unable to verify Discharge Orders: Discharge Order (Routine); Ordered 07/01/25 Ordered By: Braby Miranda Admission Data Admit Date/Time: 06/30/25 09:42 Attending Provider: Barby Miranda Admit Provider: Barby Miranda Primary Care Provider: Mehrdad Avalos Other Providers: Lanette Sotomayor Raymond K. Hospital Stay Data Consultations 06/28/25 14:01 ED Decision to Admit Stat 06/28/25 19:13 Consult Neurology Routine Diagnostic Imagining Performed 06/28/25 12:05 CT head/brain wo con Stat 07/01/25 00:00 MR angio head wo con Routine MR angio neck wo con Routine MR brain wo con Routine Pending Results Patient Have Any Pending Studies at Discharge: No Discharge Instructions Given to Patient (Per Discharging Provider) You were admitted for unresponsive episode. You were evaluated by neurology as there was a concern for stroke-like symptom vs seizures. Your workup has been negative. It is possible you might have had blood pressure changes due to your orthostatic hypotension. Continue midodrine at home. You were noted to have mild kidney abnormalities. Stay hydrated at home and avoid NSAIDs. You will need repeat kidney function test in about 3-5 days. Please have this ordered by your PCP. You are medically stable for discharge. You will need to follow up with your primary care doctor in about 7 to 10 days. Please also follow up with your neurologist. It was a pleasure being a part of your medical care team during your stay at [facility]. 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
[2025-07-01 17:27] LABS: Anion Gap 9.0 (3-11); Blood Urea Nitrogen 48.0 mg/dl (6-23); Calcium 9.9 mg/dl (8.6-10.3); Carbon Dioxide 23.0 mmol/L (21-32); Chloride 104.0 mmol/L (98-107); Creatinine Clr Calc Pharmacy 30.4 ml/min; Glucose 121.0 mg/dl (70-99(Fasting)); Potassium 5.0 mmol/L (3.5-5.1); Sodium 136.0 mmol/L (136-145)
[2025-07-01 18:33] VITALS: PULSE 73
== END 2025-07-01 18:46 | disposition home or self-care (01) | DRG 684 ==
LOC: ED 11:53 → EDINP 11:53 → 2N 19:04